=== PATIENT | female | born 1945 | race Caucasian/White ===

== ENCOUNTER → 2016-11-18 | Outpatient (CLI) | payer MEDICARE, OTHER ==
--- NOTE | 2016-11-18 09:52 | REP ---
DIAGNOSTIC MAMMOGRAM LEFT BREAST: Multiple views of the left breast are performed including magnification views of the left breast. Comparison made with multiple prior exams, the most recent of which is 04/26/2016. The clustered tiny pleomorphic calcifications in the upper outer quadrant of the left breast are again visualized and again cannot definitely be characterized as benign. Stereotactic biopsy is recommended. Other benign appearing calcifications are seen a little more laterally in the left breast. No new mass or other clusters of microcalcifications are seen. IMPRESSION: ACR 4 suspicious. Clustered microcalcifications again seen in the upper outer quadrant of the left breast for which sterotactic biopsy is recommended. This mammogram was interpreted with the aid of an FDA-approved computer-aided detection system. The patient states she/he had a clinical breast exam in 04/2016. The patient letter being requested is M4. Signed by Kartik Win MD 11/18/2016 05:22 P
== END ==
LOC: M RAD 08:46
PROVIDERS: ATTEND Surgery
DX: R92.0 Mammographic microcalcification found on diagnostic imaging of breast (principal)

== ENCOUNTER → 2017-02-24 | Outpatient (CLI) | payer MEDICARE, OTHER ==
[2017-02-24 12:18] LABS: MEAN CORPUSCULAR HEMOGLOBIN 30.7 pg (27.0-33.0); PLATELET COUNT, AUTOMATED 219 10^3/uL (150-450); RED CELL DISTRIBUTION WIDTH 12.3 % (11.5-14.5); WHITE BLOOD COUNT 5.3 10^3/uL (4.0-10.0)
[2017-02-24 14:19] LABS: ALBUMIN 3.7 GM/DL (3.2-5.2); ALBUMIN/GLOBULIN RATIO 0.95 (1.00-1.93); BILIRUBIN,TOTAL 0.6 MG/DL (0.2-1.0); CALCIUM LEVEL 9.3 MG/DL (8.8-10.2); CREATININE FOR GFR 1.46 MG/DL (0.55-1.02); GLOMERULAR FILTRATION RATE 37.4 (>39); TOTAL PROTEIN 7.6 GM/DL (6.4-8.2)
[2017-02-24 14:21] LABS: POTASSIUM SERUM 5.3 MEQ/L (3.5-5.1)
== END ==
LOC: M WUC 10:14
PROVIDERS: ATTEND Family Medicine
DX: D64.9 Anemia, unspecified (principal); R53.83 Other fatigue; E03.9 Hypothyroidism, unspecified; Z79.899 Other long term (current) drug therapy

== ENCOUNTER → 2017-07-29 | Outpatient (CLI) | payer MEDICARE, OTHER | LOC: M RAD 14:38 | DX: R93.7 Abnormal findings on diagnostic imaging of other parts of musculoskeletal system (principal); M19.011 Primary osteoarthritis, right shoulder | CPT/HCPCS: 73030 ==

== ENCOUNTER → 2018-08-07 | Outpatient (CLI) | payer MEDICARE, OTHER ==
--- NOTE | 2018-08-07 11:01 | REP ---
Chest two views HISTORY: Left rib fracture Comparison: 02/05/2016 There is elevation of the right hemidiaphragm. The lungs are clear. The heart is normal in size. The pulmonary vasculature is normal in appearance. Degenerative change is present in the thoracic spine. IMPRESSION: No acute disease. Electronically Signed by Dave Mills MD 08/07/2018 10:52 A
--- NOTE | 2018-08-07 11:06 | REP ---
LUMBAR SPINE, FIVE VIEWS: HISTORY: Degenerative disc disease. There is no acute fracture. The lumbar intervertebral discs are decreased in height consistent with disc degeneration. Osteophytes are present throughout the lumbar spine. There is narrowing of the L4-5 and L5-S1 facet joints with associated sclerosis. There is minimal scoliosis convex to the right. There are 3 mm of grade 1 spondylolisthesis of L4 on L5. IMPRESSION: Degenerative changes as described above. Electronically Signed by Dave Mills MD 08/07/2018 11:10 A
--- NOTE | 2018-08-07 11:15 | REP ---
UNILATERAL LEFT RIBS, FOUR VIEWS: HISTORY: Rib fracture. There is no fracture or bone lesion. The left lung is clear. IMPRESSION: No acute disease. Electronically Signed by Dave Mills MD 08/07/2018 11:19 A
[2018-08-07 11:16] LABS: HEMATOCRIT 34.7 % (36.0-47.0); HEMOGLOBIN 11.5 g/dl (12.0-15.5); MEAN CORPUSCULAR HEMOGLOBIN 30.4 pg (27.0-33.0); MEAN CORPUSCULAR HGB CONC 33.1 g/dl (32.0-36.5); MEAN CORPUSCULAR VOLUME 91.8 fl (80.0-96.0); PLATELET COUNT, AUTOMATED 224 10^3/uL (150-450); RED BLOOD COUNT 3.78 10^6/uL (4.00-5.40); WHITE BLOOD COUNT 6.7 10^3/uL (4.0-10.0)
--- NOTE | 2018-08-07 11:27 | REP ---
AP PELVIS, ONE VIEW: HISTORY: Degenerative joint disease. There is no acute fracture or dislocation. There is mild narrowing of the joint spaces with associated sclerosis. IMPRESSION: Degenerative change as described above. Electronically Signed by Dave Mills MD 08/07/2018 11:28 A
[2018-08-07 11:47] LABS: HEMOGLOBIN A1c 7.7 %
[2018-08-07 11:49] LABS: ALT/SGPT 24 U/L (12-78); BILIRUBIN,TOTAL 0.4 MG/DL (0.2-1.0); BLOOD UREA NITROGEN 38 MG/DL (7-18); CALCIUM LEVEL 9.4 MG/DL (8.8-10.2); CARBON DIOXIDE LEVEL 28 MEQ/L (21-32); CHLORIDE LEVEL 103 MEQ/L (98-107); CHOLESTEROL LEVEL 323 MG/DL (<200); CREATININE FOR GFR 1.66 MG/DL (0.55-1.30); GLOMERULAR FILTRATION RATE 32.1 (>39); GLUCOSE, FASTING 134 MG/DL (70-100); HDL CHOLESTEROL 42 MG/DL (>40); IRON (FE) 118 UG/DL (50-170); NON-HDL-C 281 MG/DL; PERCENT SATURATION 32.8 % (13.2-45.0); POTASSIUM SERUM 4.5 MEQ/L (3.5-5.1); SODIUM LEVEL 137 MEQ/L (136-145); TOTAL IRON BINDING CAPACITY 360 UG/DL (250-450); TOTAL PROTEIN 7.8 GM/DL (6.4-8.2); TRIGLYCERIDES LEVEL 532 MG/DL (<150)
== END ==
LOC: M LAB 10:01
PROVIDERS: ATTEND Family Medicine
DX: E03.9 Hypothyroidism, unspecified (principal); R53.83 Other fatigue; D64.9 Anemia, unspecified; M51.36 Other intervertebral disc degeneration, lumbar region; M25.78 Osteophyte, vertebrae; Z79.899 Other long term (current) drug therapy

== ENCOUNTER → 2019-02-13 | Outpatient (CLI) | payer MEDICARE, OTHER ==
[2019-02-13 09:51] LABS: HEMATOCRIT 33.6 % (36.0-47.0); MEAN CORPUSCULAR HEMOGLOBIN 30.5 pg (27.0-33.0); MEAN CORPUSCULAR HGB CONC 32.7 g/dl (32.0-36.5); MEAN CORPUSCULAR VOLUME 93.1 fl (80.0-96.0); PLATELET COUNT, AUTOMATED 221 10^3/uL (150-450); RED BLOOD COUNT 3.61 10^6/uL (4.00-5.40); WHITE BLOOD COUNT 6.8 10^3/uL (4.0-10.0)
[2019-02-13 10:27] LABS: ALT/SGPT 26 U/L (12-78); BILIRUBIN,TOTAL 0.6 MG/DL (0.2-1.0); BLOOD UREA NITROGEN 31 MG/DL (7-18); CALCIUM LEVEL 9.5 MG/DL (8.8-10.2); CARBON DIOXIDE LEVEL 28 MEQ/L (21-32); CHLORIDE LEVEL 105 MEQ/L (98-107); CHOLESTEROL LEVEL 239 MG/DL (<200); CHOLESTEROL RISK RATIO 4.596 (<5); CREATININE FOR GFR 1.61 MG/DL (0.55-1.30); GLOMERULAR FILTRATION RATE 33.2 (>39); GLUCOSE, FASTING 134 MG/DL (70-100); HDL CHOLESTEROL 52 MG/DL (>40); NON-HDL-C 187 MG/DL; POTASSIUM SERUM 4.6 MEQ/L (3.5-5.1); SODIUM LEVEL 140 MEQ/L (136-145); TOTAL PROTEIN 7.9 GM/DL (6.4-8.2); TRIGLYCERIDES LEVEL 450 MG/DL (<150)
[2019-02-13 10:28] LABS: TOTAL 25(OH) VITAMIN D 19.8 NG/ML (30.0-100.0)
[2019-02-13 11:11] LABS: HEMOGLOBIN A1c 7.9 %
== END ==
LOC: M LAB 09:13
PROVIDERS: ATTEND Family Medicine
DX: I10 Essential (primary) hypertension (principal); E11.9 Type 2 diabetes mellitus without complications; E03.9 Hypothyroidism, unspecified

== ENCOUNTER → 2020-02-29 | Outpatient (CLI) | payer MEDICARE, OTHER ==
--- NOTE | 2020-02-29 14:13 | REP ---
INDICATION: HTN COMPARISON: 08/07/2018 TECHNIQUE: PA and lateral. FINDINGS: The mediastinum and cardiac silhouette are normal. The lung regan are clear and without acute consolidation, effusion, or pneumothorax. The skeletal structures are intact and relatively normal. Old healed right rib fractures again noted. IMPRESSION: No acute cardiopulmonary process. <Electronically signed by Gonsalo Rodriguez > 02/29/20 [id number]
--- NOTE | 2020-02-29 14:14 | REP ---
INDICATION: PAIN COMPARISON: None. TECHNIQUE: AP and frog-lateral views of the left hip FINDINGS: Mild arthritic degenerative changes include joint space narrowing with marginal spurring along the acetabulum as well as cortical irregularity and emphysema petit along the greater trochanter and inferior pubic ramus. No acute fracture or dislocation. IMPRESSION: Mild arthritic degenerative changes. <Electronically signed by Gonsalo Rodriguez > 02/29/20 [id number]
[2020-02-29 15:56] LABS: HEMATOCRIT 34.2 % (36.0-47.0); MEAN CORPUSCULAR HEMOGLOBIN 30.3 pg (27.0-33.0); MEAN CORPUSCULAR HGB CONC 32.2 g/dl (32.0-36.5); MEAN CORPUSCULAR VOLUME 94.2 fl (80.0-96.0); PLATELET COUNT, AUTOMATED 213 10^3/uL (150-450); RED BLOOD COUNT 3.63 10^6/uL (4.00-5.40)
[2020-02-29 16:05] LABS: ALBUMIN 4.1 GM/DL (3.2-5.2); ALT/SGPT 24 U/L (12-78); BILIRUBIN,TOTAL 0.5 MG/DL (0.2-1.0); BLOOD UREA NITROGEN 32 MG/DL (7-18); CALCIUM LEVEL 9.1 MG/DL (8.8-10.2); CARBON DIOXIDE LEVEL 24 MEQ/L (21-32); CHLORIDE LEVEL 104 MEQ/L (98-107); CHOLESTEROL LEVEL 194 MG/DL (<200); CHOLESTEROL RISK RATIO 4.511 (<5); CREATININE FOR GFR 1.92 MG/DL (0.55-1.30); GLUCOSE, FASTING 174 MG/DL (70-100); HDL CHOLESTEROL 43 MG/DL (>40); NON-HDL-C 151 MG/DL; POTASSIUM SERUM 3.9 MEQ/L (3.5-5.1); SODIUM LEVEL 137 MEQ/L (136-145); TOTAL PROTEIN 7.7 GM/DL (6.4-8.2); TRIGLYCERIDES LEVEL 411 MG/DL (<150)
== END ==
LOC: M WUC 13:10
PROVIDERS: ATTEND Family Medicine
DX: E03.9 Hypothyroidism, unspecified (principal); M16.12 Unilateral primary osteoarthritis, left hip; I10 Essential (primary) hypertension; Z79.899 Other long term (current) drug therapy

== ENCOUNTER → 2020-07-07 | Outpatient (CLI) | payer MEDICARE, OTHER ==
--- NOTE | 2020-07-07 16:42 | REP ---
INDICATION: PAIN/SWELLING LT LEG, R/O DVT COMPARISON: None. TECHNIQUE: Win scale and color Doppler evaluation left lower extremity using linear high frequency transducer. FINDINGS: Ultrasound examination of the left lower extremity deep venous structures from the common femoral vein to the popliteal vein demonstrates normal compressibility flow and wave patterns in response to respiration and augmentation. There is no evidence for deep venous thrombosis. IMPRESSION: No evidence for deep venous thrombosis. <Electronically signed by Gonsalo Rodriguez > 07/07/20 [id number]
== END ==
LOC: M RAD 16:13
PROVIDERS: ATTEND Internal Medicine
DX: M79.662 Pain in left lower leg (principal); R60.9 Edema, unspecified

== ENCOUNTER → 2020-07-30 | Outpatient (CLI) | payer MEDICARE, OTHER ==
[2020-07-30 16:12] LABS: BASO % 0.5 % (0.0-1.0); EOS # 0.1 10^3/uL (0.0-0.5); HEMATOCRIT 34.2 % (36.0-47.0); HEMOGLOBIN 10.8 g/dl (12.0-15.5); LYMPH # 1.5 10^3/uL (1.5-5.0); LYMPH % 27.4 % (24.0-44.0); MEAN CORPUSCULAR HEMOGLOBIN 30.7 pg (27.0-33.0); MEAN CORPUSCULAR HGB CONC 31.6 g/dl (32.0-36.5); MEAN CORPUSCULAR VOLUME 97.2 fl (80.0-96.0); MONO # 0.4 10^3/uL (0.0-0.8); MONO % 7.5 % (2.0-8.0); NEUTROPHILS # 3.5 10^3/uL (1.5-8.5); NEUTROPHILS % 62.4 % (36.0-66.0); PLATELET COUNT, AUTOMATED 232 10^3/uL (150-450); RED BLOOD COUNT 3.52 10^6/uL (4.00-5.40); WHITE BLOOD COUNT 5.6 10^3/uL (4.0-10.0)
[2020-07-30 16:36] LABS: ERYTHROCYTE SEDIMENTATION RATE 48 mm/hr (0-30)
[2020-07-30 16:49] LABS: ALBUMIN 4.4 GM/DL (3.2-5.2); ALT/SGPT 23 U/L (12-78); BILIRUBIN,TOTAL 0.3 MG/DL (0.2-1.0); BLOOD UREA NITROGEN 36 MG/DL (7-18); CALCIUM LEVEL 9.8 MG/DL (8.8-10.2); CARBON DIOXIDE LEVEL 30 MEQ/L (21-32); CHLORIDE LEVEL 104 MEQ/L (98-107); CREATININE FOR GFR 1.58 MG/DL (0.55-1.30); GLOMERULAR FILTRATION RATE 33.8 (>39); GLUCOSE, FASTING 120 MG/DL (70-100); RHEUMATOID FACTOR QUANT < 10.0 IU/ML (<15.0); SODIUM LEVEL 140 MEQ/L (136-145); TOTAL PROTEIN 7.9 GM/DL (6.4-8.2)
[2020-07-30 16:51] LABS: VITAMIN B12 LEVEL 1684 PG/ML
[2020-07-30 16:52] LABS: FOLATE 14.2 NG/ML
[2020-07-31 10:53] LABS: ALBUMIN 4.53 GM/DL (3.29-5.55); ALBUMIN % 57.3 % (55.8-66.1); ALPHA-1-GLOBULIN % 4.1 % (2.9-4.9); ALPHA-1-GLOBULINS 0.32 GM/DL (0.17-0.41); ALPHA-2-GLOBULINS 1.01 GM/DL (0.42-0.99); ALPHA-2-GLOBULINS % 12.8 % (7.1-11.8); BETA-1-GLOBULINS 0.48 GM/DL (0.28-0.60); BETA-1-GLOBULINS % 6.1 % (4.7-7.2); BETA-2-GLOBULINS 0.43 GM/DL (0.19-0.55); BETA-2-GLOBULINS % 5.4 % (3.2-6.5); GAMMA GLOBULIN % 14.3 % (11.1-18.8); GAMMA GLOBULINS 1.13 GM/DL (0.65-1.58)
== END ==
LOC: M WUC 11:12
PROVIDERS: ATTEND Psychiatry & Neurology Neurology
DX: G62.9 Polyneuropathy, unspecified (principal); Z79.899 Other long term (current) drug therapy

== ENCOUNTER 2020-11-14 16:31 | Inpatient (IN) | payer MEDICARE, OTHER ==
[~2020-11-14] VITALS: Ht 152.4 cm; Wt 90.5 kg
[2020-11-14] MEDS ORDERED: METF10004 PO (16:47)
[2020-11-14] MEDS ORDERED: GLIP5TAB20 PO (16:47)
[2020-11-14] MEDS ORDERED: NEUR300C PO (16:47)
[2020-11-14] MEDS ORDERED: RAMI1CAP26 PO (16:47)
[2020-11-14] MEDS ORDERED: PRAV40TA2 PO (16:47)
[2020-11-14] MEDS ORDERED: TRIA37.5 PO (16:47)
--- NOTE | 2020-11-14 17:35 | REP ---
INDICATION: trauma Nontraumatic hip pain. COMPARISON: None. TECHNIQUE: Frontal view of the pelvis with neutral and frog lateral views of the right hip. FINDINGS: There is a comminuted displaced intertrochanteric fracture of the proximal right femur. IMPRESSION: Comminuted intertrochanteric fracture of the proximal femur. <Electronically signed by Gonsalo Rodriguez > 11/14/20 [id number]
--- NOTE | 2020-11-14 17:35 | REP ---
INDICATION: trauma COMPARISON: None. TECHNIQUE: AP and lateral right ankle. FINDINGS: Osteopenia and degenerative changes along with findings to suggest old injuries. No acute fracture or dislocation identified. IMPRESSION: No acute fracture or dislocation appreciated. <Electronically signed by Gonsalo Rodriguez > 11/14/20 [id number]
[2020-11-14] MEDS ORDERED: NS 1,000 ML IV SCH ×2 (17:45→20:15)
[2020-11-14] MEDS ORDERED: MORPHINE 4 MG/ML 1ML VIAL/SYRINGE (J2270) IV PRN ×2 (17:55→19:15)
[2020-11-14] MEDS ORDERED: ONDANSETRON 4MG/2ML VIAL IV ONE (17:55)
[2020-11-14 18:08] LABS: BASO % 0.3 % (0.0-1.0); EOS # 0.1 10^3/uL (0.0-0.5); EOS % 1.4 % (0.0-3.0); HEMATOCRIT 28.3 % (36.0-47.0); HEMOGLOBIN 9.1 g/dl (12.0-15.5); LYMPH # 1.5 10^3/uL (1.5-5.0); LYMPH % 17.9 % (24.0-44.0); MEAN CORPUSCULAR HEMOGLOBIN 30.5 pg (27.0-33.0); MEAN CORPUSCULAR HGB CONC 32.2 g/dl (32.0-36.5); MONO # 0.9 10^3/uL (0.0-0.8); MONO % 10.3 % (2.0-8.0); NEUTROPHILS % 69.8 % (36.0-66.0); PLATELET COUNT, AUTOMATED 215 10^3/uL (150-450); RED BLOOD COUNT 2.98 10^6/uL (4.00-5.40); WHITE BLOOD COUNT 8.6 10^3/uL (4.0-10.0)
[2020-11-14 18:28] LABS: ALBUMIN 3.5 GM/DL (3.2-5.2); ALT/SGPT 33 U/L (12-78); BILIRUBIN,DIRECT 0.2 MG/DL (0.0-0.2); BILIRUBIN,TOTAL 0.7 MG/DL (0.2-1.0); INR 1.06; LIPASE 204 U/L (73-393); TOTAL PROTEIN 7.2 GM/DL (6.4-8.2)
[2020-11-14] MEDS ORDERED: ONDANSETRON 4MG/2ML VIAL IV PRN (18:35)
[2020-11-14] MEDS ORDERED: GLUCAGON INJ 1MG VIAL SC PRN (18:35)
[2020-11-14] MEDS ORDERED: MOM 30ML SUSPENSION UDC PO PRN (18:35)
[2020-11-14] MEDS ORDERED: GLUCOSE 4GM CHEW TABLET PO PRN (18:35)
[2020-11-14] MEDS ORDERED: DEXTROSE 50% 50 ML SYRINGE IV PRN (18:35)
[2020-11-14] MEDS ORDERED: KETOROLAC 30 MG/ML 1ML VIAL IV PRN (18:35)
[2020-11-14] MEDS ORDERED: MAALOX 30 ML SUSP *UDC PO PRN (18:35)
[2020-11-14] MEDS ORDERED: RAMI1CAP24 PO (18:36)
[2020-11-14] MEDS ORDERED: ERGO500029 PO (18:37)
[2020-11-14] MEDS ORDERED: ACET-683 PO (18:37)
--- NOTE | 2020-11-14 18:38 | HPEPDOC ---
[facility] Medical History & Physical Date of Admission Nov 14, 2020 Date of Service: Nov 14, 2020 Attending Physician: GENEVIEVE STRICKLAND MD History and Physical CHIEF COMPLAINT: [75 y/o female presents to the ED after 2 falls] HISTORY OF PRESENT ILLNESS: [This is a 75 y/o female with a pmh of htn and dm2 who presents to the ED after suffering two recent falls, three days ago and one day ago, respectively. Patient states that her first fall occurred while she was trying to do laundry and she was reaching over the machine for something and simply lost her balance and fell onto her right side. Patient states that she did not strike her head. Patient states that she was not able to get up and had to call ems to help her into a chair but refused to go to the hospital. Patient states that she was able to ambulate somewhat after this fall but with pain in her right hip. Patient states that yesterday, she was attempting to switch out one walker for another when she lost her balance yet again and fell onto her right side yet again. Patient again had to call ems but this time decided to report to the hospital for evaluation. At the time of my exam, patient is complaining of right hip pain with movement only. She is denying headaches, vision changes, weakness, paresthesias, paralysis, back pain, chest pain, abd pain, fevers, chills, dizziness, lightheadedness. Patient found to have proximal comminuted fracture of right femur on imaging. Patient also found to have a cr of 2.2, which appears to be elevated from her baseline of around 1.5 ] PAST MEDICAL HISTORY: 1. [See HPI PAST SURGICAL HISTORY: 1. [C section]. SOCIAL HISTORY: Tobacco use:[Denies] ETOH: [Denies] Illicit drug use: [Denies] FAMILY HISTORY: Sister - COPD ALLERGIES: Please see below. REVIEW OF SYSTEMS: CONSTITUTIONAL: [See HPI]. HEENT: [Denies uri sx]. CARDIOVASCULAR: [See HPI]. RESPIRATORY: [Denies sob, wheezing]. GASTROINTESTINAL: [Denies n/v/d/c]. GENITOURINARY: [Denies dysuria]. SKIN: [Denies rash]. MUSCULOSKELETAL: [See HPI]. NEUROLOGICAL: [See HPI]. ENDOCRINE: [Hx of DM]. HEMATOLOGIC/LYMPHATIC: [Denies easy bruising]. HOME MEDICATIONS: Please see below. PHYSICAL EXAMINATION: VITAL SIGNS: Please see below. GENERAL APPEARANCE: [This is an overweight 75 y/o female who appears anxious. She does not appear to be in any acute respiratory distress.]. HEENT: [No mass or lesion. EOMI. No scleral icterus. Nares patent. Oral mucosa moist]. CARDIOVASCULAR: [Regular rate, rhythm. No murmurs, rubs, gallops]. LUNGS: [Good air flow b/l. No wheezing, rales, rhonchi]. ABDOMEN: [Soft, nontender]. MUSCULOSKELETAL: [No joint deformity. R hip rom is not assessed. Patient able to freely move right ankle and foot.]. EXTREMITIES: [The lower right extremity has mild edema without erythema, pallor or signficiant ecchymosis. The lower left extremity has hyperpigmentation and is cool to the touch consistant with chronic venous insufficiency. Pulses intact.]. NEUROLOGICAL: [Sensation intact. Speech clear. A+Ox3. No focal deficits.]. PSYCHIATRIC: [Mood and affect appear appropriate.]. LABORATORY DATA: See below. IMAGING: [Hip/pelvis xr: FINDINGS: There is a comminuted displaced intertrochanteric fracture of the proximal right femur. IMPRESSION: Comminuted intertrochanteric fracture of the proximal femur. Ankle xr: FINDINGS: Osteopenia and degenerative changes along with findings to suggest old injuries. No acute fracture or dislocation identified. IMPRESSION: No acute fracture or dislocation appreciated. CXR: FINDINGS: The mediastinum and cardiac silhouette are stable and within normal limits for portable technique. The lung regan are clear without acute consolidation, effusion, or pneumothorax. Skeletal structures are intact. IMPRESSION: No acute cardiopulmonary process appreciated. Femur xr: FINDINGS: Osteopenia and degenerative changes noted. No fracture to the visualized osseous structures. IMPRESSION: . No acute fracture or dislocation of the visualized osseous structures. CT Extremity: FINDINGS: Bones/joints: Intertrochanteric fracture of the right hip with separation of the lesser trochanter as a fragment. There is slight varus angulation through the site of fracture and slight offset. The adjacent pelvis is intact. Soft tissues: Slight hemorrhagic infiltration is noted about the site of fracture. IMPRESSION: 1. Intertrochanteric fracture of the right hip with slight varus angulation and slight offset through the site of fracture and separation of the lesser trochanter. 2. Slight hemorrhagic infiltration is noted about the site of fracture. Renal US: FINDINGS: Bilateral kidneys are normal in contour, size, echogenicity, and reniform shape. No hydronephrosis, nephrolithiasis, cystic or renal mass lesion. Bladder is unremarkable. Right kidney measures 10.2 x 3.7 x 4.1 cm. Left kidney measures 9.1 x 3.7 x 4.1 cm. Incidental hepatosteatosis and cholelithiasis noted.] MICROBIOLOGY: Please see below. ASSESSMENT: [This is a 75 y/o female with a pmh of htn and dm2 who presents to the ED after suffering two recent falls, three days ago and one day ago, respectively. Patient found to have proximal comminuted fracture of right femur on imaging. Falls seem to be mechanical in nature. Patient also found to have a cr of 2.2, which appears to be elevated from her baseline of around 1.5]. . PLAN: 1. [Right hip fx - Dr. Kellogg, orthopedics, has been consulted from the emergency department, is recommending or tomorrow. Assistance is appreciated. - Pain control with morphine overnight - zofran for nausea - npo after midnight - admit to med surg for procedure 2. MUNIRA - likely acute on chronic renal failure 2/2 poor oral intake d/t recent poor mobility - i do not see formal diagnosis of ckd in patients chart, however with a baseline cr of 1.5, this places her at ckd3 - will give fluid bolus followed by ivf - renal us normal - urine electrolytes ordered - holding patients triamterene-hctz - will monitor kidney function 3. Anemia - Likely anemia of chronic disease - iron studies, folate, b12 ordered - current hb is 9 4. DM - sliding scale coverage - hypoglycemic protocol - continue gabapentin 5. HTN - continue ramipril - holding patients triamterene-hctz as stated 6. HLD - continue pravastatin DVT prophylaxis - mechanical]. Vital Signs Vital Signs Date Time Temp Pulse Resp B/P (MAP) Pulse Ox O2 Delivery O2 Flow Rate FiO2 11/14/20 18:26 16 11/14/20 16:42 97.9 80 106/52 (70) 95 Room Air Laboratory Data Labs 24H Laboratory Tests 2 11/14/20 17:50: Immature Granulocyte % (Auto) 0.3, Neutrophils (%) (Auto) 69.8H, Lymphocytes (%) (Auto) 17.9L, Monocytes (%) (Auto) 10.3H, Eosinophils (%) (Auto) 1.4, Basophils (%) (Auto) 0.3, Neutrophils # (Auto) 6.0, Lymphocytes # (Auto) 1.5, Monocytes # (Auto) 0.9H, Eosinophils # (Auto) 0.1, Basophils # (Auto) 0.0, Nucleated Red Blood Cells % (auto) 0.0, Prothrombin Time 14.0, Prothromb Time International Ratio 1.06, Total Bilirubin 0.7, Direct Bilirubin 0.2, Aspartate Amino Transf (AST/SGOT) 47H, Alanine Aminotransferase (ALT/SGPT) 33, Alkaline Phosphatase 55, Total Protein 7.2, Albumin 3.5, Albumin/Globulin Ratio 0.9L, Lipase 204 CBC/BMP Laboratory Tests 11/14/20 17:50 Home Medications Scheduled Ergocalciferol (Vitamin D2) (Vitamin D2) 50,000 Units Cap, 50,000 UNITS PO QWEEK MONDAY Gabapentin (Neurontin) 300 Mg Capsule, 300 MG PO TID Glipizide (Glipizide ER) 5 Mg Tab.er.24, 5 MG PO DAILY Metformin HCl (Metformin HCl) 1,000 Mg Tablet, 1,000 MG PO BID Pravastatin Sodium (Pravastatin Sodium) 40 Mg Tablet, 40 MG PO DAILY Ramipril (Ramipril) 5 Mg Capsule, 5 MG PO DAILY Triamterene/Hydrochlorothiazid (Triamterene-Hctz 37.5-25 mg Tb) 1 Each Tablet, 1 TAB PO DAILY Scheduled PRN Acetaminophen (Acetaminophen) 500 Mg Tablet, 1,000 MG PO BID PRN for PAIN Allergies Coded Allergies: No Known Allergies (Unverified , 11/14/20) A-FIB/CHADSVASC A-FIB History Current/History of A-Fib/PAF?: No Attending Note Attending Note Ms. Hearn is a 75 yr old F admitted for management of a right hip fx after a fall, MUNIRA and anemia. Her revised Cardiac risk index score is 1; prior to proceeding with surgery we will check a pro-BNP -if the pro-BNP is greater than 300 she will need to be put on telemetry and have her troponin checked daily for 48 to 72 hours. She already has an EKG which I reviewed that shows NSR w a rate of 79. Other than than this she will not need additional testing prior to proceeding with surgery. -if the pro-BNP is less than 300 she can proceed with surgery without telemetry and without serial troponins. rest per [facility] Nov 14, 2020 18:38 GENEVIEVE STRICKLAND MD Nov 15, 2020 03:22
[2020-11-14 18:45] LABS: BLOOD UREA NITROGEN 62 MG/DL (7-18); CALCIUM LEVEL 8.9 MG/DL (8.8-10.2); CARBON DIOXIDE LEVEL 25 MEQ/L (21-32); CHLORIDE LEVEL 103 MEQ/L (98-107); CREATININE FOR GFR 2.02 MG/DL (0.55-1.30); GLOMERULAR FILTRATION RATE 25.4 (>39); GLUCOSE, FASTING 112 MG/DL (70-100); POTASSIUM SERUM 4.3 MEQ/L (3.5-5.1); SODIUM LEVEL 139 MEQ/L (136-145)
[2020-11-14] MEDS ORDERED: NS 1,000 ML IV ONE (19:20)
[2020-11-14 19:22] LABS: FERRITIN 332 NG/ML (8-252); IRON (FE) 37 UG/DL (50-170); PERCENT SATURATION 11.9 % (13.2-45.0); TOTAL IRON BINDING CAPACITY 310 UG/DL (250-450)
[2020-11-14 19:31] LABS: RSV AMPLIFICATION NEGATIVE (NEGATIVE)
--- NOTE | 2020-11-14 19:48 | REP ---
INDICATION: preop COMPARISON: 02/29/2020 TECHNIQUE: Portable AP view of the chest FINDINGS: The mediastinum and cardiac silhouette are stable and within normal limits for portable technique. The lung regan are clear without acute consolidation, effusion, or pneumothorax. Skeletal structures are intact. IMPRESSION: No acute cardiopulmonary process appreciated. <Electronically signed by Gonsalo Rodriguez > 11/14/201944
--- NOTE | 2020-11-14 19:49 | REP ---
INDICATION: preop COMPARISON: None. TECHNIQUE: AP and oblique/lateral view of the mid to distal femur FINDINGS: Osteopenia and degenerative changes noted. No fracture to the visualized osseous structures. IMPRESSION: . No acute fracture or dislocation of the visualized osseous structures. <Electronically signed by Gonsalo Rodriguez > 11/14/201945
--- NOTE | 2020-11-14 19:51 | REP ---
INDICATION: alfredo COMPARISON: None TECHNIQUE: Real time farfan scale ultrasound examination using curved array transducer. FINDINGS: Bilateral kidneys are normal in contour, size, echogenicity, and reniform shape. No hydronephrosis, nephrolithiasis, cystic or renal mass lesion. Bladder is unremarkable. Right kidney measures 10.2 x 3.7 x 4.1 cm. Left kidney measures 9.1 x 3.7 x 4.1 cm. Incidental hepatosteatosis and cholelithiasis noted. IMPRESSION: Normal bilateral kidneys. As above. <Electronically signed by Gonsalo Rodriguez > 11/14/201946
--- NOTE | 2020-11-14 20:14 | REPVR ---
PROCEDURE INFORMATION: Exam: CT Right Lower Extremity Without Contrast, Hip Exam date and time: 11/14/2020 7:09 PM Age: 75 years old Clinical indication: Injury or trauma; Fall; Blunt trauma; Hip; Right TECHNIQUE: Imaging protocol: CT of the Right lower extremity without contrast was performed. Exam focused on the hip. Radiation optimization: All CT scans at this facility use at least one of these dose optimization techniques: automated exposure control; mA and/or kV adjustment per patient size (includes targeted exams where dose is matched to clinical indication); or iterative reconstruction. COMPARISON: CR Hip,AP,LAT to include Pelvis 11/14/2020 5:03 PM FINDINGS: Bones/joints: Intertrochanteric fracture of the right hip with separation of the lesser trochanter as a fragment. There is slight varus angulation through the site of fracture and slight offset. The adjacent pelvis is intact. Soft tissues: Slight hemorrhagic infiltration is noted about the site of fracture. IMPRESSION: 1. Intertrochanteric fracture of the right hip with slight varus angulation and slight offset through the site of fracture and separation of the lesser trochanter. 2. Slight hemorrhagic infiltration is noted about the site of fracture. Electronically signed by: Ayden Cabrales On 11/14/2020 20:13:56 PM
[2020-11-14] MEDS ORDERED: HumaLOG INSULIN (NovoLOG) PER UNIT SC SCH (21:00)
[2020-11-14 21:15] VITALS: BP 130/62
[2020-11-14] MEDS: GABAPENTIN 300 MG CAP PO SCH (22:50)
[2020-11-15] VITALS (8 sets, daily range): BP systolic 113–136; BP diastolic 58–93
[2020-11-15] MEDS ORDERED: NS 1,000 ML IV SCH
[2020-11-15] MEDS: D5W/0.9% SODIUM CHLORIDE 1,000 ML IV SCH ×2 (03:25→18:02)
[2020-11-15] MEDS: HumaLOG INSULIN (NovoLOG) PER UNIT SC SCH ×3 (06:00→18:00)
[2020-11-15] MEDS: MORPHINE 2 MG/ML 1ML VIAL (J2270) IV PRN (06:55)
[2020-11-15 07:11] LABS: HEMATOCRIT 25.5 % (36.0-47.0); MEAN CORPUSCULAR HEMOGLOBIN 30.3 pg (27.0-33.0); MEAN CORPUSCULAR HGB CONC 31.4 g/dl (32.0-36.5); MEAN CORPUSCULAR VOLUME 96.6 fl (80.0-96.0); PLATELET COUNT, AUTOMATED 196 10^3/uL (150-450); RED BLOOD COUNT 2.64 10^6/uL (4.00-5.40); WHITE BLOOD COUNT 5.5 10^3/uL (4.0-10.0)
[2020-11-15 07:21] LABS: CPK CREATINE PHOSPHOKINASE 1081 U/L (26-192); NT-PRO BNP 172 PG/ML (<450)
[2020-11-15] MEDS ORDERED: HumaLOG INSULIN (NovoLOG) PER UNIT SC SCH (07:30)
[2020-11-15 07:31] LABS: CALCIUM LEVEL 8.3 MG/DL (8.8-10.2); CREATININE FOR GFR 1.69 MG/DL (0.55-1.30); GLOMERULAR FILTRATION RATE 31.2 (>39); POTASSIUM SERUM 4.4 MEQ/L (3.5-5.1)
--- NOTE | 2020-11-15 07:47 | ECGEPIP ---
[facility] - ED Test Date: 2020-11-14 Pat Name: AALIYAH ELLSWORTH Department: Room: [place] [address] Gender: Female Livestock Producer: ROD : 1945 Requested By: Teresita Bauman Order Number: [id number] Reading MD: Teresita Bauman Measurements Intervals Hodgen Rate: 79 P: 32 MS: 172 QRS: -38 QRSD: 94 T: 78 QT: 388 QTc: 444 Interpretive Statements Normal sinus rhythm Left axis deviation prwp No prior Electronically Signed on 11-15-2020 7:47:31 EDT by Teresita Bauman
[2020-11-15] MEDS: GABAPENTIN 300 MG CAP PO SCH ×3 (08:44→21:10)
[2020-11-15] MEDS: ramipriL 5 MG CAP PO SCH (08:44)
[2020-11-15] MEDS: PRAVASTATIN 20 MG TAB PO SCH (08:45)
[2020-11-15] MEDS ORDERED: SEVOFLURANE INHAL SOLN 250 ML BTL As Ordered ONE (08:49)
[2020-11-15] MEDS ORDERED: LIDOCAINE 2% 100MG/5ML SDV (FOR ANES.) As Ordered ONE (11:08)
[2020-11-15] MEDS ORDERED: propofoL 200 MG/20 ML VIAL As Ordered ONE (11:08)
[2020-11-15] MEDS ORDERED: fentaNYL 100 MCG/2 ML INJECTION (J3010) As Ordered ONE ×2 (11:09→13:39)
[2020-11-15] MEDS ORDERED: dexameTHASONE 4 MG/ML 1ML VIAL (J1100 PER 1MG) As Ordered ONE (11:09)
[2020-11-15] MEDS ORDERED: ONDANSETRON 4MG/2ML VIAL As Ordered ONE (11:09)
--- NOTE | 2020-11-15 11:10 | CR ---
CONSULTATION DATE: 11/15/2020 REASON FOR CONSULTATION: Right hip fracture. CHIEF COMPLAINT: Right hip pain. HISTORY OF PRESENT ILLNESS: The patient is a 75-year-old female with a past medical history of hypertension, diabetes type who presents to the emergency department after sustaining two recent falls. One was four days ago and one was two days ago. She fell onto her right side and initially was unable to ambulate after that because of right hip pain but did not want to come to the hospital. She then was trying to transfer from one walker to another and then fell again and finally presented to the emergency department. She was found to have a comminuted right intertrochanteric femur fracture. Orthopedics was consulted for evaluation and management. Otherwise, no other areas of complaint with reference to pain. PAST MEDICAL HISTORY: As above in the HPI. PAST SURGICAL HISTORY: . SOCIAL HISTORY: Tobacco, she denies, alcohol denies, drug use denies. FAMILY HISTORY: Sister has COPD. ALLERGIES: No known drug allergies. MEDICATIONS: See med rec reconciliation. REVIEW OF SYSTEMS: A 10 point review of systems was completed and all were negative except for what is in the HPI. PHYSICAL EXAMINATION: GENERAL: Well-developed, well-nourished, obese, in no acute distress. NEURO: Alert and oriented x4. PSYCH: Normal mood and affect. CARDIAC: Regular rate and rhythm. RESPIRATORY: Nonlabored breathing. Equal chest rise and fall. ABDOMEN: Nontender. SKIN: Intact, no ecchymosis, swelling or breaks in the skin. MUSCULOSKELETAL: Focused exam of right hip and lower extremity demonstrates pain to palpation over the right hip. Range of motion is limited secondary to pain. She has no tenderness in the thigh, knee, leg, foot or ankle. She has pain with attempted passive motion of the hip but this was done minimally. Sensation intact to light touch in the sural, saphenous, DP and SP and tibial nerves. Motor intact in the EHL, FHL, gastroc-soleus complex, tibialis anterior. She has warm and well-perfused digits. IMAGING: Review of the radiographs and CT scan of the right hip demonstrate a right intertochanteric femur fracture. ASSESSMENT: This is a 75-year-old female with a right intertrochanteric femur fracture. I had a long discussion with the patient about the nature of the condition and treatment options. I recommend surgical stabilization with supplementary nail fixation to give her the best chance to prevent any morbidity or mortality. The patient is agreeable to this and we went over the risks of surgery as well and she signed the consent herself. The patient will go the OR today as long as she is medically cleared to go to the operating room.
[2020-11-15] MEDS ORDERED: ROCURONIUM BROMIDE 50 MG/5 ML VIAL As Ordered ONE (12:58)
[2020-11-15] MEDS ORDERED: LIDOCAINE 1% MDV 20ML VIAL As Ordered ONE (13:08)
[2020-11-15] MEDS ORDERED: TRANEXAMIC ACID 100 MG/ML 10ML VIAL As Ordered ONE (13:08)
[2020-11-15] MEDS ORDERED: ceFAZolin 2 GM/D5W 50 ML IV BAG (J0690 PER 500MG) As Ordered ONE (13:08)
[2020-11-15] MEDS ORDERED: BUPIVACAINE HCL 0.5% 10ML VIAL As Ordered ONE (13:09)
[2020-11-15] MEDS ORDERED: ACETAMINOPHEN 1000MG 100ML IV BTL (OFIRMEV) (J0131 PER 10MG) As Ordered ONE (14:21)
[2020-11-15] MEDS ORDERED: SUGAMMADEX SODIUM 500 MG/5 ML VIAL (BRIDION) As Ordered ONE (14:55)
--- NOTE | 2020-11-15 15:17 | REP ---
INDICATION: RIGHT HIP FRACTURE. COMPARISON: None. TECHNIQUE: Intraoperative fluoroscopic imaging using portable C-arm technique. FINDINGS: Satisfactory open reduction and fixation for femoral neck fracture. Total fluoroscopic time 2 minutes 51 seconds. IMPRESSION: Status post open reduction and fixation for femoral neck fracture. <Electronically signed by Gonsalo Rodriguez > 11/15/20 [id number]
[2020-11-15] MEDS ORDERED: METOCLOPRAMIDE INJ 10MG/2ML VIAL (J2765 PER 1) As Ordered ONE (16:06)
[2020-11-15] MEDS ORDERED: LR 1,000 ML IV SCH (16:20)
[2020-11-15] MEDS ORDERED: ONDANSETRON 4MG/2ML VIAL IV PRN (16:20)
[2020-11-15] MEDS ORDERED: HYDROMORPHONE HCL 0.5 MG/ 0.5 ML SYRINGE (J1170 PER 1) IV PRN (16:20)
[2020-11-15] MEDS ORDERED: oxyCODONE 5MG TAB PO PRN (16:20)
[2020-11-15] MEDS ORDERED: fentaNYL 100 MCG/2 ML INJECTION (J3010) IV PRN (16:20)
[2020-11-15] MEDS ORDERED: diphenhydrAMINE 50MG/ML VIAL (J1200) As Ordered ONE (16:25)
[2020-11-15] MEDS ORDERED: METOCLOPRAMIDE INJ 10MG/2ML VIAL (J2765 PER 1) IV PRN (16:35)
[2020-11-15] MEDS ORDERED: diphenhydrAMINE 50MG/ML VIAL (J1200) IV PRN (17:05)
--- NOTE | 2020-11-15 17:32 | RO ---
OPERATIVE NOTE DATE OF OPERATION: 11/15/2020 PREOPERATIVE DIAGNOSIS: Right hip intertrochanteric femur fracture. POSTOPERATIVE DIAGNOSIS: Right hip intertrochanteric femur fracture. OPERATION PERFORMED: Right hip closed reduction and cephalomedullary nail fixation. SURGEON: Charbel Kellogg MD STEAMBOAT PILOT: ANESTHESIA: INDICATION FOR OPERATION: The patient is a 75-year-old female who sustained a ground-level fall a couple of days ago and presented to the emergency department yesterday for right hip pain. She was diagnosed with a right intertrochanteric femur fracture and orthopedics was consulted for evaluation. I recommended based on her fracture pattern closed reduction and cephalomedullary nail fixation. The patient demonstrated understanding of the risks of surgery to included but not limited to bleeding, infection, damage to local structures, pain, stiffness, need for further surgery, and she was able to sign the informed consent. All questions were answered to her full satisfaction. MATERIAL FORWARDED: None. DESCRIPTION OF FINDINGS: The patient had stable reduction and fixation after implants were placed. Compression of the fracture fragments was used with the [employer] TFNA system. INFECTION CLASSIFICATION: 1, clean. ESTIMATED BLOOD LOSS: 100 mL DESCRIPTION OF THE OPERATION: The patient was met in the preoperative holding area where the correct name, identity, operative site, laterality and procedure were verified to be correct without discrepancies. The operative site was marked by myself. The patient was then taken to the operating room by nursing and anesthesia providers and remained on the gurney. She then underwent general anesthetic and placed under general anesthetic without complication. She was then transferred to the fracture table where the right lower extremity was placed into the boot for traction. The left lower extremity was then suspended along the bottom rail of the fracture table and was well padded and well secured. Next, x-ray was brought in to evaluate whether we could get adequate images and we were able to this without problem. Next, the patient's right leg was then prepped and draped in the usual sterile fashion. A timeout was then called and the patient's name, identity, operative site, laterality and procedure were verified without discrepancies. We also confirmed antibiotics and TXA administration. The antibiotic was weight based Ancef. Next, the bony landmarks of the proximal femur were identified under fluoroscopy. Please note that during the x-rays we got before prepping and draping, a closed reduction was performed with the use of traction and the fracture table. Adequate reduction was achieved under AP and lateral views. Next, going back to marking the bony landmarks, after these were done an incision was carried out several cm proximal to the greater trochanter and a guidewire was placed onto the tip of the greater trochanteric as well. This was advanced into the proximal femur and this was confirmed under fluoroscopy. Then opening reamer was then used to open this area. We had to ream the canal to 12.5 mm prior to placing the nail. The nail was then placed and sunk down to the appropriate level. The jig was set up and the helical blade was then prepped with the jig in place. Initially, a guidewire was advanced through the nail up to the femoral head. Once adequate position was achieved, this was measured and based on this measurement, I decided to go with a 90 mm helical blade. This was then overdrilled with the drill set to 90 mm. Helical blade was then placed and it was sunk down. Once it was sunk down all the way, it caused a little bit of distraction of the fracture fragments. I then used the compression feature of the TFNA system to compress the fracture fragments slightly. Please note that during this malleolus x-rays and AP and lateral were being taken to assure that we had appropriate positioning of the implants and maintenance of reduction. After compression was done, the set screw was placed and held the set as it could. The interlocking screw was then placed distally utilizing a jig. Once this was placed, the whole jig was removed and final x-rays were taken, confirming we had perfect positioning of our implants. The wounds were then copiously irrigated with normal saline and closed in layers. Sterile dressings were applied and the patient was then aroused from anesthesia, having tolerated the procedure well without any complication. Postoperatively, the patient will stay in the hospital under management of the primary team and she can begin protective weightbearing. She can weight bear as tolerated with physical therapy using a walker. She will get 24 hours of postop antibiotics and DVT chemoprophylaxis per the primary team. The patient did receive preop antibiotics, she will get postop antibiotics and she will get postop DVT chemoprophylaxis. We will have her follow up in our clinic in about two weeks or so for wound check and staple removal.
[2020-11-15] MEDS: ceFAZolin SOD 2 GM in IV 1 EA IV SCH (21:10)
[2020-11-16 02:15] VITALS: BP 115/72
[2020-11-16] MEDS: D5W/0.9% SODIUM CHLORIDE 1,000 ML IV SCH (05:06)
[2020-11-16] MEDS: MORPHINE 2 MG/ML 1ML VIAL (J2270) IV PRN (05:06)
[2020-11-16] MEDS: ceFAZolin SOD 2 GM in IV 1 EA IV SCH ×2 (05:06→12:17)
[2020-11-16] MEDS: HumaLOG INSULIN (NovoLOG) PER UNIT SC SCH ×6 (05:18→21:00)
[2020-11-16] MEDS: GABAPENTIN 300 MG CAP PO SCH ×3 (08:04→21:10)
[2020-11-16] MEDS: ramipriL 5 MG CAP PO SCH (08:04)
[2020-11-16] MEDS: PRAVASTATIN 20 MG TAB PO SCH (08:05)
[2020-11-16 08:10] LABS: HEMATOCRIT 23.6 % (36.0-47.0); HEMOGLOBIN 7.5 g/dl (12.0-15.5); MEAN CORPUSCULAR HEMOGLOBIN 30.2 pg (27.0-33.0); MEAN CORPUSCULAR HGB CONC 31.8 g/dl (32.0-36.5); MEAN CORPUSCULAR VOLUME 95.2 fl (80.0-96.0); PLATELET COUNT, AUTOMATED 190 10^3/uL (150-450); RED BLOOD COUNT 2.48 10^6/uL (4.00-5.40); WHITE BLOOD COUNT 8.2 10^3/uL (4.0-10.0)
[2020-11-16 08:34] LABS: CALCIUM LEVEL 8.2 MG/DL (8.8-10.2); CREATININE FOR GFR 1.89 MG/DL (0.55-1.30); GLOMERULAR FILTRATION RATE 27.5 (>39); POTASSIUM SERUM 4.4 MEQ/L (3.5-5.1)
[2020-11-16 10:00] VITALS: BP 123/52
[2020-11-16 11:13] LABS: FOLATE 12.2 NG/ML (>5.4); VITAMIN B12 LEVEL > 2000 PG/ML (247-911)
--- NOTE | 2020-11-16 13:53 | IPNPDOC ---
Text Note Date of Service The patient was seen on 11/15/20. NOTE Subjective: Patient seen and examined at bedside. Objective: General: NAD, lying comfortably in bed HEENT: NC/AT Lungs: CTA B/L Heart: +S1S2, RRR Abd: soft, NT, +BS, obese Ext: trace edema Neuro: no gross focal deficits Psych: AAOx3 A/P: 75 y/o female with PMHx including HTN, DM2, present for falls - 3days ago and one day prior. Patient found to have proximal comminuted fracture of right femur on imaging. Patient also noted to be in MUNIRA. #Right hip fx - follow as per ortho - pain control #MUNIRA - possibly seocndary to dehydration given poor PO intake - renal us normal - holding patients triamterene-hctz - will monitor kidney function #Anemia - Likely anemia of chronic disease - iron studies, folate, b12 ordered #DM - sliding scale coverage - hypoglycemic protocol - continue gabapentin for peripheral neuropathy #HTN - ramipril continued on admission - holding patients triamterene-hctz as stated #HLD - continue pravastatin #DVT prophylaxis - mechanical]. VS,Fishbone, I+O VS, Fishbone, I+O Laboratory Tests 11/16/20 07:52 Vital Signs Date Time Temp Pulse Resp B/P (MAP) Pulse Ox O2 Delivery O2 Flow Rate FiO2 11/16/20 10:00 97.3 78 16 123/52 (75) 92 Room Air 11/16/20 07:30 1.0 I&O- Last 24 Hours up to 6 AM 11/16/20 05:59 Intake Total 460 ml Output Total 100 ml Balance 360 ml TOÑO BERNSTEIN MD Nov 16, 2020 13:53
[2020-11-16 14:00] VITALS: BP 120/54
--- NOTE | 2020-11-16 14:00 | IPNPDOC ---
Text Note Date of Service The patient was seen on 11/16/20. NOTE Subjective: Patient seen and examined at bedside. Objective: General: NAD, lying comfortably in bed HEENT: NC/AT Lungs: CTA B/L Heart: +S1S2, RRR Abd: soft, NT, +BS, obese Ext: trace edema Neuro: no gross focal deficits Psych: AAOx3 A/P: 75 y/o female with PMHx including HTN, DM2, present for falls, with proximal comminuted fracture of right femur on imaging. Patient also noted to be in MUNIRA on admission #Right hip fx - POD #1 for right hip closed reduction/cephalomedullary nail fixation - follow as per ortho - pain control #MUNIRA - possibly seocndary to dehydration given poor PO intake - renal us normal - holding patients triamterene-hctz, will also hold ACEI - will monitor kidney function - UA/UCx pending #Anemia - slight decrease - will recheck in evening and tomorrow am - asymptomatic - iron studies note iron deficiency #DM - sliding scale coverage - hypoglycemic protocol - continue gabapentin for peripheral neuropathy, restart ACEI if possible on discharge #HTN - stable - as above, holding ramipril, triamterene-hctz - restart ACEI if possible on discharge #HLD - continue pravastatin #DVT prophylaxis - mechanical]. VS,Fishbone, I+O VS, Fishbone, I+O Laboratory Tests 11/16/20 07:52 Vital Signs Date Time Temp Pulse Resp B/P (MAP) Pulse Ox O2 Delivery O2 Flow Rate FiO2 11/16/20 10:00 97.3 78 16 123/52 (75) 92 Room Air 11/16/20 07:30 1.0 I&O- Last 24 Hours up to 6 AM0 11/16/20 05:59 Intake Total 460 ml Output Total 100 ml Balance 360 ml TOÑO BERNSTEIN MD Nov 16, 2020 14:00
[2020-11-16] MEDS: NS 1,000 ML IV SCH (14:16)
[2020-11-16] MEDS: ACETAMINOPHEN TAB 650MG DOSE (2X325MG) PO PRN (21:10)
[2020-11-16 22:00] VITALS: BP 122/56
[2020-11-17] VITALS (11 sets, daily range): BP systolic 117–161; BP diastolic 54–82
[2020-11-17] MEDS: NS 1,000 ML IV SCH ×2 (01:07→12:24)
[2020-11-17 06:30] LABS: HEMATOCRIT 22.8 % (36.0-47.0); HEMOGLOBIN 7.3 g/dl (12.0-15.5); MEAN CORPUSCULAR HEMOGLOBIN 30.5 pg (27.0-33.0); MEAN CORPUSCULAR VOLUME 95.4 fl (80.0-96.0); PLATELET COUNT, AUTOMATED 185 10^3/uL (150-450); RED BLOOD COUNT 2.39 10^6/uL (4.00-5.40); WHITE BLOOD COUNT 6.1 10^3/uL (4.0-10.0)
[2020-11-17 06:59] LABS: CALCIUM LEVEL 7.8 MG/DL (8.8-10.2); CREATININE FOR GFR 1.59 MG/DL (0.55-1.30); GLOMERULAR FILTRATION RATE 33.5 (>39); POTASSIUM SERUM 4.1 MEQ/L (3.5-5.1)
[2020-11-17] MEDS: PRAVASTATIN 20 MG TAB PO SCH (09:13)
[2020-11-17] MEDS: GABAPENTIN 300 MG CAP PO SCH ×3 (09:13→20:26)
[2020-11-17] MEDS: HumaLOG INSULIN (NovoLOG) PER UNIT SC SCH ×4 (09:13→20:26)
[2020-11-17] MEDS: ACETAMINOPHEN TAB 650MG DOSE (2X325MG) PO PRN ×2 (09:13→20:27)
[2020-11-17] MEDS ORDERED: PERCOCET 5MG/325MG TAB PO PRN (10:00)
[2020-11-17] MEDS ORDERED: NS 1,000 ML IV SCH (10:05)
--- NOTE | 2020-11-17 19:13 | IPNPDOC ---
Subjective Date Seen The patient was seen on 11/17/20. Subjective Chief Complaint/HPI Mrs. Hearn is a 75 year old female who is here for proximal comminuted fracture of the right femur. This morning, she denies any chest pain or dyspnea. Her hemoglobin continued to trend downward. Discussed transfusion with patient and she was agreeable. Objective Physical Examination General Exam: Positive: Alert, Cooperative Eye Exam: Negative: Sclera icteric Neck Exam: Positive: Supple Chest Exam: Positive: Clear to auscultation Heart Exam: Positive: Rate Normal, Regular Rhythm Abdomen Exam: Positive: Normal bowel sounds, Soft; Negative: Tenderness Extremity Exam: Positive: Edema (mild edema) Neuro Exam: Positive: Normal Speech Psych Exam: Positive: Mental status NL, Mood NL Assessment /Plan Assessment Mrs. Hearn is a 75 year old female who is here for proximal comminuted fracture of the right femur and MUNIRA. Dr. Kellogg took patient to the OR on 11/15/20 for right hip closed reduction and cephalomedullary nail fixation. Renal function has been improving, but patient has also became more anemic. Patient will be transfused with 2u of pRBC this today. Plan/VTE VTE Prophylaxis Ordered?: Yes Plan 1. Right hip fracture -Orthopedic surgery following, recommendations appreciated -Dr. Kellogg took patient to the OR on 11/15/20 for right hip closed reduction and cephalomedullary nail fixation -Pending rehab 2. MUNIRA on CKD -Creatinine on admission was 2.02 -Baseline around 1.4 to 1.6 -Close to baseline. Continue to monitor 3. Blood loss anemia -Iron low but ferritin high -Possibly blood loss anemia from recent surgery -Transfusing 2u pRBC 4. Diabetes mellitus -Sliding scale insulin and consist carb diet 5. Hypertension -Ramipril, triamterene, and HCTZ held due to MUNIRA -Renal function improving. Can consider restarting ramipril tomorrow if renal function continues to improve. 6. Hyperlipidemia -Continue pravastatin 7. DVT ppx -No chemical ppx due to anemia -SCD and TEDs Disposition: If stable tomorrow, anticipate discharge to ARU VS, I&O, 24H, Fishbone Vital Signs/I&O Vital Signs Date Time Temp Pulse Resp B/P (MAP) Pulse Ox O2 Delivery O2 Flow Rate FiO2 11/17/20 18:56 99.9 89 20 161/82 94 Room Air 11/16/20 07:30 1.0 I&O- Last 24 Hours up to 6 AM 11/17/20 06:00 Intake Total 2570 ml Output Total 100 ml Balance 2470 ml Laboratory Data 24H LABS Laboratory Tests 2 11/17/20 06:11: Nucleated Red Blood Cells % (auto) 0.0, Anion Gap 4L, Glomerular Filtration Rate 33.5L, Calcium Level 7.8L 11/17/20 08:57: Urine Color YELLOW, Urine Appearance CLEAR, Urine pH 5.0, Urine Specific Hope 1.011, Urine Protein NEGATIVE, Urine Glucose (UA) NEGATIVE, Urine Ketones NEGATIVE, Urine Blood 1+H, Urine Nitrite NEGATIVE, Urine Bilirubin NEGATIVE, Urine Urobilinogen 0.2, Urine Leukocyte Esterase NEGATIVE, Urine WBC (Auto) 0, Urine RBC (Auto) 2, Urine Hyaline Casts (Auto) 0, Urine Bacteria (Auto) 1+H, Urine Squamous Epithelial Cells 0, Urine Mucus (Auto) SMALL, Urine Sperm (Auto) 11/17/20 10:44: Lactate Dehydrogenase 239 CBC/BMP Laboratory Tests 11/17/20 06:11 KIM SINGH DO Nov 17, 2020 19:13
[2020-11-17 19:53] LABS: HEMATOCRIT 31.3 % (36.0-47.0); HEMOGLOBIN 10.3 g/dl (12.0-15.5); MEAN CORPUSCULAR HEMOGLOBIN 29.9 pg (27.0-33.0); MEAN CORPUSCULAR HGB CONC 32.9 g/dl (32.0-36.5); MEAN CORPUSCULAR VOLUME 90.7 fl (80.0-96.0); PLATELET COUNT, AUTOMATED 192 10^3/uL (150-450); RED BLOOD COUNT 3.45 10^6/uL (4.00-5.40); WHITE BLOOD COUNT 6.8 10^3/uL (4.0-10.0)
[2020-11-18 06:00] VITALS: BP 161/88
[2020-11-18 07:29] LABS: HEMATOCRIT 30.8 % (36.0-47.0); HEMOGLOBIN 10.2 g/dl (12.0-15.5); MEAN CORPUSCULAR HEMOGLOBIN 29.7 pg (27.0-33.0); MEAN CORPUSCULAR HGB CONC 33.1 g/dl (32.0-36.5); MEAN CORPUSCULAR VOLUME 89.8 fl (80.0-96.0); PLATELET COUNT, AUTOMATED 195 10^3/uL (150-450); RED BLOOD COUNT 3.43 10^6/uL (4.00-5.40)
[2020-11-18 07:49] LABS: CALCIUM LEVEL 8.3 MG/DL (8.8-10.2); CREATININE FOR GFR 1.21 MG/DL (0.55-1.30); GLOMERULAR FILTRATION RATE 45.9 (>39); POTASSIUM SERUM 4.5 MEQ/L (3.5-5.1)
[2020-11-18] MEDS ORDERED: DOCUSATE SODIUM 100MG CAPSULE PO SCH (09:00)
[2020-11-18] MEDS ORDERED: ramipriL 5 MG CAP PO SCH (09:00)
[2020-11-18] MEDS: HumaLOG INSULIN (NovoLOG) PER UNIT SC SCH ×2 (09:14→12:37)
[2020-11-18] MEDS: GABAPENTIN 300 MG CAP PO SCH (09:14)
[2020-11-18] MEDS: PRAVASTATIN 20 MG TAB PO SCH (09:14)
[2020-11-18] MEDS ORDERED: PERCOCET PO (09:25)
[2020-11-18] MEDS ORDERED: ACET1TAB55 PO (09:25)
[2020-11-18] MEDS: ACETAMINOPHEN TAB 650MG DOSE (2X325MG) PO PRN (10:22)
[2020-11-18 11:34] VITALS: BP 161/88
[2020-11-18] MEDS ORDERED: MIRALAX *UNIT DOSE* 17GM PACKET PO PRN (11:55)
--- NOTE | 2020-11-18 19:02 | DS.PDOC ---
Discharge Summary General Date of Admission Nov 14, 2020 at 18:33 Date of Discharge Nov 18, 2020 Specialist/Consultants [facility] Orthopedic surgery, Dr. Kellogg Discharge Summary PROCEDURES PERFORMED DURING STAY: Right hip closed reduction and cephalomedullary nail fixation. ADMITTING DIAGNOSES: 1. Right hip fracture 2. MUNIRA on CKD stage III 3. Anemia of chronic disease 4. Diabetes mellitus 5. Hypertension 6. Hyperlipidemia DISCHARGE DIAGNOSES: 1. Right hip fracture 2. MUNIRA on CKD stage III 3. Acute blood loss anemia in addition to anemia of chronic disease 4. Diabetes mellitus 5. Hypertension 6. Hyperlipidemia COMPLICATIONS/CHIEF COMPLAINT: Hip Fracture. HISTORY OF PRESENT ILLNESS: Copied from admitting providers H&P " This is a 75 y/o female with a pmh of htn and dm2 who presents to the ED after suffering two recent falls, three days ago and one day ago, respectively. Patient states that her first fall occurred while she was trying to do laundry and she was reaching over the machine for something and simply lost her balance and fell onto her right side. Patient states that she did not strike her head. Patient states that she was not able to get up and had to call ems to help her into a chair but refused to go to the hospital. Patient states that she was able to ambulate somewhat after this fall but with pain in her right hip. Patient states that yesterday, she was attempting to switch out one walker for another when she lost her balance yet again and fell onto her right side yet again. Patient again had to call ems but this time decided to report to the hospital for evaluation. At the time of my exam, patient is complaining of right hip pain with movement only. She is denying headaches, vision changes, weakness, paresthesias, paralysis, back pain, chest pain, abd pain, fevers, chills, dizziness, lightheadedness. Patient found to have proximal comminuted fracture of right femur on imaging. Patient also found to have a cr of 2.2, which appears to be elevated from her baseline of around 1.5 " HOSPITAL COURSE: Dr. Kellogg took patient down to the OR on 11/15/20 for a right hip closed reduction and cephalomedullary nail fixation. Patient had a right hip intertrochanteric femur fracture. After surgery, patient did well. Physical therapy worked with patient and recommended rehabilitation. Otherwise, for patient's MUNIRA, patient's triamterene/HCTZ and ACEi were held and patient was given IVF. Patient renal function improved. ACEi was added back on. Otherwise, patient's hemoglobin continued to trend downwards which may have been from the surgery. Patient was given 2u of pRBC and hemoglobin improved and has remained stable. Patient feels well today and feels ready for rehab. Patient was subsequently discharged to ARU today. DISCHARGE MEDICATIONS: Please see below. ALLERGIES: Please see below. PHYSICAL EXAMINATION ON DISCHARGE: VITAL SIGNS: Please see below. PHYSICAL EXAM: GENERAL: Comfortable, in no apparent distress. HEENT: EOMI, sclera clear. NECK: Supple. RESPIRATORY: Lungs clear to auscultation bilaterally, no rales, wheeze or rhonchi. CARDIOVASCULAR: Regular rate and rhythm. ABDOMEN: Soft. Normal bowel sounds. PSYCHOLOGICAL: Normal mood and affect LABORATORY DATA: Please see below. IMAGING: Radiologist interpretation CT head without contrast of right IMPRESSION: 1. Intertrochanteric fracture of the right hip with slight varus angulation and slight offset through the site of fracture and separation of the lesser trochanter. 2. Slight hemorrhagic infiltration is noted about the site of fracture. X-ray hip of right IMPRESSION: Comminuted intertrochanteric fracture of the proximal femur Ultrasound renal FINDINGS: Bilateral kidneys are normal in contour, size, echogenicity, and reniform shape. No hydronephrosis, nephrolithiasis, cystic or renal mass lesion. Bladder is unremarkable. Right kidney measures 10.2 x 3.7 x 4.1 cm. Left kidney measures 9.1 x 3.7 x 4.1 cm. Incidental hepatosteatosis and cholelithiasis noted. IMPRESSION: Normal bilateral kidneys. As above. PROGNOSIS: Good ACTIVITY: As tolerated. DIET: Carbohydrate consistent diet DISCHARGE PLAN: ARU DISPOSITION: Acute rehab. DISCHARGE INSTRUCTIONS: 1. Follow-up with PCP 1 week of discharge from ARU. 2. Follow-up with orthopedic surgery in 2 weeks. ITEMS TO FOLLOWUP ON ON OUTPATIENT: 1. Hemoglobin 2. Renal function DISCHARGE CONDITION: Stable. Total time spent on discharge planning, discharge summary, and medication reconciliation: 55 minutes Vital Signs/I&Os Vital Signs Date Time Temp Pulse Resp B/P (MAP) Pulse Ox O2 Delivery O2 Flow Rate FiO2 11/18/20 11:34 161/88 11/18/20 06:00 98.7 71 16 92 Room Air 11/16/20 07:30 1.0 I&O- Last 24 Hours up to 6 AM 11/18/20 06:00 Intake Total 2370 ml Output Total 100 ml Balance 2270 ml Laboratory Data Labs 24H Laboratory Tests 2 11/17/20 19:21: Nucleated Red Blood Cells % (auto) 0.0 11/17/20 20:04: Bedside Glucose (Misc Panel) 192H 11/18/20 06:28: Nucleated Red Blood Cells % (auto) 0.0, Anion Gap 7L, Glomerular Filtration Rate 45.9, Calcium Level 8.3L 11/18/20 11:41: Bedside Glucose (Misc Panel) 179H CBC/BMP Laboratory Tests 11/17/20 19:21 11/18/20 06:28 FSBS Laboratory Tests Test 11/17/20 20:04 11/18/20 11:41 Range/Units Bedside Glucose (Misc Panel) 192 179 83-110 MG/DL Discharge Medications Scheduled Ergocalciferol (Vitamin D2) (Vitamin D2) 50,000 Units Cap, 50,000 UNITS PO QWEEK, (Reported) MONDAY Gabapentin (Neurontin) 300 Mg Capsule, 300 MG PO TID, (Reported) Glipizide (Glipizide ER) 5 Mg Tab.er.24, 5 MG PO DAILY, (Reported) Metformin HCl (Metformin HCl) 1,000 Mg Tablet, 1,000 MG PO BID, (Reported) Pravastatin Sodium (Pravastatin Sodium) 40 Mg Tablet, 40 MG PO DAILY, (Reported) Ramipril (Ramipril) 5 Mg Capsule, 5 MG PO DAILY, (Reported) Scheduled PRN Acetaminophen (Acetaminophen) 325 Mg Tablet, 650 MG PO Q6HP PRN for MILD PAIN or TEMP > 101 Oxycodone/Acetaminophen (Oxycodone-Acetaminophen 5-325) 1 Each Tablet, 1 TAB PO Q6HP PRN for MODERATE PAIN (PS 5-7) Allergies Coded Allergies: No Known Allergies (Unverified , 11/14/20) KIM SINGH DO Nov 18, 2020 19:02
== END 2020-11-18 13:30 | disposition home or self-care (01) | DRG 481 ==
LOC: M ED 16:31 → EDBD 16:31 → M ED INP 18:33 → ENRESERV 19:02 → M MS5PR 21:15
PROVIDERS: ADMIT Internal Medicine; ATTEND Internal Medicine
PROC: 0QS6XZZ Reposition Right Upper Femur, External Approach (ICD-10-PCS; 2020-11-15)
PROC: 0QS636Z Reposition Right Upper Femur with Intramedullary Internal Fixation Device, Percutaneous Approach (ICD-10-PCS; principal; 2020-11-15 11:00)
DX: S72.141A Displaced intertrochanteric fracture of right femur, initial encounter for closed fracture (principal); N17.9 Acute kidney failure, unspecified; D62 Acute posthemorrhagic anemia; I12.9 Hypertensive chronic kidney disease with stage 1 through stage 4 chronic kidney disease, or unspecified chronic kidney disease; E11.22 Type 2 diabetes mellitus with diabetic chronic kidney disease; W01.0XXA Fall on same level from slipping, tripping and stumbling without subsequent striking against object, initial encounter; Y92.009 Unspecified place in unspecified non-institutional (private) residence as the place of occurrence of the external cause; D63.1 Anemia in chronic kidney disease; E78.5 Hyperlipidemia, unspecified; Z79.899 Other long term (current) drug therapy; N18.30 Chronic kidney disease, stage 3 unspecified

== ENCOUNTER 2020-11-18 10:26 | Inpatient (IN) | payer MEDICARE, OTHER ==
[~2020-11-18] VITALS: Ht 152.4 cm; Wt 88.1 kg
[~2020-11-18 10:26] MED LIST: ACET-683 PO; ACET1TAB55 PO; ERGO500029 PO; GLIP5TAB20 PO; METF10004 PO; NEUR300C PO; PERCOCET PO; PRAV40TA2 PO; RAMI1CAP24 PO; RAMI1CAP26 PO; TRIA37.5 PO
[2020-11-18] MEDS ORDERED: GLUCAGON INJ 1MG VIAL SC PRN (13:20)
[2020-11-18] MEDS ORDERED: GLUCOSE 4GM CHEW TABLET PO PRN (13:20)
[2020-11-18] MEDS ORDERED: DEXTROSE 50% 50 ML SYRINGE IV PRN (13:20)
[2020-11-18] MEDS ORDERED: BISACODYL 10 MG SUPP PR PRN (13:20)
[2020-11-18] MEDS ORDERED: ONDANSETRON 4 MG ORAL DISINTEGRATING TAB PO PRN (13:20)
[2020-11-18 13:45] VITALS: BP 178/80
[2020-11-18] MEDS ORDERED: PERCOCET 5MG/325MG TAB PO PRN (15:15)
[2020-11-18] MEDS: GABAPENTIN 300 MG CAP PO SCH ×2 (15:47→20:17)
[2020-11-18] MEDS: ACETAMINOPHEN 500 MG TAB PO SCH ×2 (15:48→20:18)
[2020-11-18] MEDS: REMEDY PHYTOPLEX Z-GUARD PASTE 113GM TUBE (FROM STOREROOM PRODUCT) TOP SCH ×2 (15:49→21:00)
[2020-11-18] MEDS: HumaLOG INSULIN (NovoLOG) PER UNIT SC SCH ×2 (17:01→21:00)
[2020-11-18 20:00] VITALS: BP 176/77
[2020-11-18] MEDS: SENNA 8.6 MG TAB (SENOKOT) PO SCH (20:17)
[2020-11-18] MEDS: DOCUSATE SODIUM 100MG CAPSULE PO SCH (20:17)
[2020-11-19 06:00] VITALS: BP 168/88
[2020-11-19 07:39] LABS: BASO % 0.4 % (0.0-1.0); EOS # 0.2 10^3/uL (0.0-0.5); EOS % 2.7 % (0.0-3.0); HEMATOCRIT 33.4 % (36.0-47.0); HEMOGLOBIN 11.2 g/dl (12.0-15.5); LYMPH # 1.3 10^3/uL (1.5-5.0); LYMPH % 16.8 % (24.0-44.0); MEAN CORPUSCULAR HGB CONC 33.5 g/dl (32.0-36.5); MEAN CORPUSCULAR VOLUME 89.5 fl (80.0-96.0); MONO # 0.8 10^3/uL (0.0-0.8); MONO % 9.9 % (2.0-8.0); NEUTROPHILS # 5.3 10^3/uL (1.5-8.5); NEUTROPHILS % 69.4 % (36.0-66.0); PLATELET COUNT, AUTOMATED 225 10^3/uL (150-450); RED BLOOD COUNT 3.73 10^6/uL (4.00-5.40); WHITE BLOOD COUNT 7.6 10^3/uL (4.0-10.0)
[2020-11-19] MEDS: GABAPENTIN 300 MG CAP PO SCH ×3 (07:42→20:29)
[2020-11-19] MEDS: HumaLOG INSULIN (NovoLOG) PER UNIT SC SCH ×4 (07:43→20:28)
[2020-11-19] MEDS: DOCUSATE SODIUM 100MG CAPSULE PO SCH ×2 (07:44→20:29)
[2020-11-19] MEDS: glipiZIDE XL 5 MG TABCR PO SCH (07:44)
[2020-11-19] MEDS: PRAVASTATIN 20 MG TAB PO SCH (07:44)
[2020-11-19] MEDS: ramipriL 5 MG CAP PO SCH (07:45)
[2020-11-19] MEDS: ACETAMINOPHEN 500 MG TAB PO SCH ×3 (07:45→20:29)
[2020-11-19] MEDS: REMEDY PHYTOPLEX Z-GUARD PASTE 113GM TUBE (FROM STOREROOM PRODUCT) TOP SCH ×3 (07:46→20:30)
[2020-11-19] MEDS: PANTOPRAZOLE 40MG TAB (PROTONIX) PO SCH (07:46)
[2020-11-19 08:04] LABS: ALBUMIN 2.9 GM/DL (3.2-5.2); BILIRUBIN,TOTAL 0.8 MG/DL (0.2-1.0); CREATININE FOR GFR 1.1 MG/DL (0.55-1.30); GLOMERULAR FILTRATION RATE 51.3 (>39); POTASSIUM SERUM 4.5 MEQ/L (3.5-5.1); TOTAL PROTEIN 6.4 GM/DL (6.4-8.2)
[2020-11-19 09:00] VITALS: BP 150/62
--- NOTE | 2020-11-19 10:50 | HPEPDOC ---
[employer] Receptionist Note DATE OF ADMISSION: 11-18-20 DATE OF SERVICE: 11-19-20 TIME OF ADMISSION: Please refer to physician's admission order. SOURCE OF ADMISSION INFORMATION: [facility] record and patient CHIEF COMPLAINT: hip fracture HISTORY OF PRESENT ILLNESS: 75F pmh HTn, DM who fell at home while doing laundry and presented to [facility] ED on 11-14-20 complaining of henry and difficulty walking. Xrays revealed a comminuted right femur fracture for which she was evaluated by orthopedics. She underwent a right hip ORIF on 11-15-20 after which she developed significant post-op bleeding with a Hgb of 7.3, weakness, and required 2 prbc transfusions. Additionally she developed MUNIRA also likely due to blood loss. Her diuretic and PARAG-I were held due to her worsening kidney function which did improve. Additionally Ac was held for DVT prophylaxis due to concern for worsening bleeding. She was very weak in therapy with difficulty with mobility and ADLs and deemed medically appropriate for discharge to ARU on 11-18-20. REVIEW OF SYSTEMS: The following is a completed review of systems and has been reviewed. Review of systems otherwise unremarkable. PAIN: Patient self reports right hip pain EYES: No recent vision changes EARS, NOSE, & THROAT: No throat pain, or dysphagia, or rhinorrhea CARDIOVASCULAR: Denies chest pain or palpitations PULMONARY: Denies shortness of breath GASTROINTESTINAL: Denies constipation/diarrhea GENITOURINARY: denies dysuria MUSCULOSKELETAL: s/p right hip fracture NEUROLOGICAL:denies paresthesia HEMATOLOGICAL: +anemia SKIN: right hip incision PSYCHIATRIC: Unremarkable All other review of systems found to be negative. PAST MEDICAL HISTORY: as per [facility] PAST SURGICAL HISTORY: Hx of ALLERGIES: Please see below. MEDICATIONS: Please see below. FAMILY HISTORY: copd SOCIAL HISTORY: No etoh/illicit drugs/smoking DIET: low sodium PHYSICAL EXAMINATION: VITAL SIGNS: Please see below. GENERAL: Pleasant and cooperative. No acute distress. HEENT: PERRL. Extraocular movements intact. Clear conjunctiva CARDIOVASCULAR: [Regular rate and rhythm. No murmurs, rubs, or gallops LUNGS: Clear to auscultation bilaterally. No wheezes. No rhonchi ABDOMEN: Soft, nontender, nondistended. Positive bowel sounds. Normal active bowel sounds NEUROLOGICAL: Alert and oriented times three. Cranial nerves II through XII grossly intact. Sensation grossly intact inlcuding 1st web space left foot EXTREMITIES: 5\5 strength bilateral upper extremities.5\5 strength right ankle DF/and EHL (limited due to hip surgery) 5/5 strength in left lower extremity. SKIN: right hip janet-incision with mild edema, no induration/erythema +sacral ulcer LABORATORY DATA: Please see below. IMAGING: Imaging documentation personally reviewed by record FUNCTIONAL STATUS: Premorbid: Independent with all activities of daily life as well as mobility On Admission: Min assist for functional transfers, ambulation, bed mobility, dressing GOALS: Mod-I for functional transfers, ambulation, bed mobility, dressing, bathing, stairs ASSESSMENT:75-year-old F with past medical history of HTN who presents status post right hip fracture and ORIF PLAN: 1. REhab- PT/OT advance mobility and ADLs, strengthen/stretch/maintain ROM all 4limbs 2. ORtho s/p right hip ORIF due to femur fracture 11-15-20, WBAT f/u ortho outpatient 3. CArdiac- hx of HTN c/u BP meds -HLD c/u statin 4. Resp- monitor for infection 5. Endo- hx of DM c/u glipizide and ISS, adjust prn 6. Heme- post-op anemia due to blood loss s/p prbc tranfusion, monitor while on ARU and consider transfusion if Hgb <8 or symptomatic 7. DVT ppx- TEDs, holding AC due to recent bleed- will order dopplers to r/o DVT -confirmed with hpsitlaist ok to start Xarelto 10mg now that Hgb improved 8. Pain- tylenol, oxycodone, and gabapentin 9. GI ppx- protonix 10. Dispo- TBD POST ADMISSION PHYSICIAN EVALUATION: Medical and functional status: Description of medical status, medical assessment: As above. Rehabilitation diagnosis and current and prior cold morbid medical conditions as above. Risk of complications and plans to mitigate them as above. Description of functional status current status is as above. Prior status as above. Status compared to preadmission: There are no clinically significant differences between the patient's current status and the information described on the preadmission screening document. Treatment plan anticipated: Treatment plan is as described above. Required disciplines including physical therapy, occupational therapy, others as noted above. Intensity of services: 3 hours a day, 6 days a week. Special considerations: There are no specific special or safety considerations that would likely preclude immediate implementation of an intensive rehabilitation program or subsequently influence the plan of care. ATTESTATION: Considering all the information above, it is my best judgment that this patient requires intensive rehabilitation therapy as described above and an inpatient hospital environment due to the complexity of nursing, medical, and rehabilitation needs required by the patient. Furthermore, this patient can reasonably be expected to participate in an benefit from an inpatient rehabilitation stay with an interdisciplinary team approach to the delivery of rehabilitation care under the direction and supervision of rehabilitation physician. PROGNOSIS: Excellent ESTIMATED LENGTH OF STAY:12-16 days. PROJECTED DISCHARGE DESTINATION: Home with family support and any durable medical equipment required to increase functional safety and mobility TIME SPENT COUNSELING AND COORDINATING INITIAL CARE: Greater than 70 minutes. Vital Signs Vital Sign - Last 24 Hours 11/18/20 11/18/20 11/19/20 11/19/20 13:45 20:00 06:00 07:45 Temp 97.9 98.0 97.7 Pulse 83 85 83 Resp 18 18 18 B/P (MAP) 178/80 (112) 176/77 (110) 168/88 (114) 168/88 Pulse Ox 96 96 96 O2 Delivery Room Air Room Air Room Air Laboratory Data CBC/BMP Laboratory Tests 11/19/20 07:07 Labs 24H Laboratory Tests 2 11/18/20 16:39: Bedside Glucose (Misc Panel) 235H 11/18/20 20:11: Bedside Glucose (Misc Panel) 180H 11/19/20 06:03: Bedside Glucose (Misc Panel) 163H 11/19/20 07:07: Immature Granulocyte % (Auto) 0.8, Neutrophils (%) (Auto) 69.4H, Lymphocytes (%) (Auto) 16.8L, Monocytes (%) (Auto) 9.9H, Eosinophils (%) (Auto) 2.7, Basophils (%) (Auto) 0.4, Neutrophils # (Auto) 5.3, Lymphocytes # (Auto) 1.3L, Monocytes # (Auto) 0.8, Eosinophils # (Auto) 0.2, Basophils # (Auto) 0.0, Nucleated Red Blood Cells % (auto) 0.0, Anion Gap 8, Glomerular Filtration Rate 51.3, Calcium Level 9.0, Total Bilirubin 0.8, Aspartate Amino Transf (AST/SGOT) 23, Alanine Aminotransferase (ALT/SGPT) 20, Alkaline Phosphatase 92, Total Protein 6.4, Albumin 2.9L, Albumin/Globulin Ratio 0.8L FSBS Laboratory Tests Test 11/18/20 16:39 11/18/20 20:11 11/19/20 06:03 Range/Units Bedside Glucose (Misc Panel) 235 180 163 83-110 MG/DL Home Medications Scheduled Ergocalciferol (Vitamin D2) (Vitamin D2) 50,000 Units Cap, 50,000 UNITS PO QWEEK, (Reported) MONDAY Gabapentin (Neurontin) 300 Mg Capsule, 300 MG PO TID, (Reported) Glipizide (Glipizide ER) 5 Mg Tab.er.24, 5 MG PO DAILY, (Reported) Metformin HCl (Metformin HCl) 1,000 Mg Tablet, 1,000 MG PO BID, (Reported) Pravastatin Sodium (Pravastatin Sodium) 40 Mg Tablet, 40 MG PO DAILY, (Reported) Ramipril (Ramipril) 5 Mg Capsule, 5 MG PO DAILY, (Reported) Scheduled PRN Acetaminophen (Acetaminophen) 325 Mg Tablet, 650 MG PO Q6HP PRN for MILD PAIN or TEMP > 101 Oxycodone/Acetaminophen (Oxycodone-Acetaminophen 5-325) 1 Each Tablet, 1 TAB PO Q6HP PRN for MODERATE PAIN (PS 5-7) Allergies Coded Allergies: No Known Allergies (Unverified , 11/14/20) A-FIB/CHADSVASC A-FIB History Current/History of A-Fib/PAF?: No Current PO Anticoag Therapy: No IHSAN CHRISTOPHER MD Nov 19, 2020 10:50
[2020-11-19] MEDS: METOPROLOL TART 25 MG TABLET PO SCH ×2 (11:27→20:30)
[2020-11-19 14:14] VITALS: BP 175/87
--- NOTE | 2020-11-19 16:05 | REP ---
INDICATION: immobility. COMPARISON: Comparison study July 07, 2020.. TECHNIQUE: Bilateral lower extremity duplex venous scanning is performed from the groin to the ankle level. FINDINGS: The deep veins are anechoic and fully compressible from the groin to the popliteal fossa in the left and right lower extremity. Color flow imaging is homogeneous. Spectral Doppler interrogation demonstrates intact respiratory variation in flow and normal manual augmentation of flow. There is no evidence of deep vein thrombosis in the femoropopliteal veins. The calf veins could not be visualized due to patient body habitus and edema this exam.. IMPRESSION: No evidence of DVT in the femoropopliteal veins. Exam limited by patient body habitus and lower extremity edema.. <Electronically signed by Estrada Mena > 11/19/20 0275
[2020-11-19 16:43] LABS: INR 0.94; PARTIAL THROMBOPLASTIN TIME 28.6 SECONDS (24.2-38.5); PROTHROMBIN TIME 12.8 SECONDS (12.5-14.3)
[2020-11-19] MEDS: RIVAROXABAN 10 MG TAB (XARELTO) PO SCH (17:22)
--- NOTE | 2020-11-19 17:35 | IPNPDOC ---
Subjective Date Seen The patient was seen on 11/19/20. Subjective Chief Complaint/HPI Mrs. Hearn is a 75 year old female who is here for proximal comminuted fracture of the right femur. Dr. Kellogg took the patient to the OR on 11/15/20 for a right hip closed reduction and cephalomedullary nail fixation. Her hospitalization was complicated by MUNIRA and anemia, both of which has now resolved. She was then discharged to ARU for rehab. She was seen this morning. She feels well. Denies any fever/chills, chest pain, dyspnea, abdominal pain, or dysuria. I discussed case with Dr. Gallego, patient to be started on Xarelto 10mg qD for DVT ppx. Otherwise, blood pressure is a little elevated, will start patient on amlodipine. Objective Physical Examination General Exam: Positive: Alert, Cooperative Eye Exam: Positive: EOMI; Negative: Sclera icteric Neck Exam: Positive: Supple Chest Exam: Positive: Clear to auscultation Heart Exam: Positive: Rate Normal, Regular Rhythm Abdomen Exam: Positive: Normal bowel sounds, Soft; Negative: Tenderness Extremity Exam: Positive: Edema (mild pitting edema) Neuro Exam: Positive: Normal Speech Psych Exam: Positive: Mental status NL, Mood NL Assessment /Plan Assessment Mrs. Hearn is a 75 year old female who is here for proximal comminuted fracture of the right femur. Dr. Kellogg took the patient to the OR on 11/15/20 for a right hip closed reduction and cephalomedullary nail fixation. Her hospitalization was complicated by MUNIRA and anemia, both of which has now resolved. She was then discharged to ARU for rehab. Plan/VTE VTE Prophylaxis Ordered?: Yes Plan 1. Right hip fracture -Dr. Kellogg took patient to the OR on 11/15/20 for right hip closed reduction and cephalomedullary nail fixation -Patient now in ARU for rehab -Patient was started on Xarelto 10mg qD for DVT ppx 2. Chronic kidney disease stage 3 -Stable -Supportive care 3. Anemia of chronic disease -Initially had blood loss anemia from surgery -Hemoglobin has been stable -Monitor CBC while on Xarelto 4. Diabetes mellitus -Sliding scale insulin and consist carb diet 5. Hypertension -Continue ramipril -Added on amlodipine 6. Hyperlipidemia -Continue pravastatin 7. DVT ppx -Xarelto 10mg qD Disposition: Per ARU VS, I&O, 24H, Elin Vital Signs/I&O Vital Signs Date Time Temp Pulse Resp B/P (MAP) Pulse Ox O2 Delivery O2 Flow Rate FiO2 11/19/20 14:14 98.2 72 18 175/87 (116) 97 Room Air I&O- Last 24 Hours up to 6 AM 11/19/20 06:00 Intake Total 350 ml Balance 350 ml Laboratory Data 24H LABS Laboratory Tests 2 11/18/20 20:11: Bedside Glucose (Misc Panel) 180H 11/19/20 06:03: Bedside Glucose (Misc Panel) 163H 11/19/20 07:07: Immature Granulocyte % (Auto) 0.8, Neutrophils (%) (Auto) 69.4H, Lymphocytes (%) (Auto) 16.8L, Monocytes (%) (Auto) 9.9H, Eosinophils (%) (Auto) 2.7, Basophils (%) (Auto) 0.4, Neutrophils # (Auto) 5.3, Lymphocytes # (Auto) 1.3L, Monocytes # (Auto) 0.8, Eosinophils # (Auto) 0.2, Basophils # (Auto) 0.0, Nucleated Red Blood Cells % (auto) 0.0, Anion Gap 8, Glomerular Filtration Rate 51.3, Calcium Level 9.0, Total Bilirubin 0.8, Aspartate Amino Transf (AST/SGOT) 23, Alanine Aminotransferase (ALT/SGPT) 20, Alkaline Phosphatase 92, Total Protein 6.4, Albumin 2.9L, Albumin/Globulin Ratio 0.8L 11/19/20 11:27: Bedside Glucose (Misc Panel) 279H 11/19/20 16:07: Prothrombin Time 12.8, Prothromb Time International Ratio 0.94, Activated Partial Thromboplast Time 28.6 11/19/20 16:42: Bedside Glucose (Misc Panel) 114H CBC/BMP Laboratory Tests 11/19/20 07:07 KIM SINGH DO Nov 19, 2020 17:03
[2020-11-19] MEDS: amLODIPine 5 MG TAB PO SCH (17:37)
[2020-11-19 20:00] VITALS: BP 134/75
[2020-11-19] MEDS: SENNA 8.6 MG TAB (SENOKOT) PO SCH (20:29)
[2020-11-20 06:00] VITALS: BP 161/72
[2020-11-20 06:44] LABS: BASO % 0.3 % (0.0-1.0); EOS # 0.2 10^3/uL (0.0-0.5); EOS % 2.5 % (0.0-3.0); HEMATOCRIT 33.3 % (36.0-47.0); HEMOGLOBIN 10.7 g/dl (12.0-15.5); LYMPH # 1.3 10^3/uL (1.5-5.0); LYMPH % 17.7 % (24.0-44.0); MEAN CORPUSCULAR HEMOGLOBIN 29.2 pg (27.0-33.0); MEAN CORPUSCULAR HGB CONC 32.1 g/dl (32.0-36.5); MONO # 0.7 10^3/uL (0.0-0.8); MONO % 9.2 % (2.0-8.0); NEUTROPHILS # 5.3 10^3/uL (1.5-8.5); NEUTROPHILS % 69.5 % (36.0-66.0); PLATELET COUNT, AUTOMATED 241 10^3/uL (150-450); RED BLOOD COUNT 3.66 10^6/uL (4.00-5.40); WHITE BLOOD COUNT 7.6 10^3/uL (4.0-10.0)
[2020-11-20 07:11] LABS: CALCIUM LEVEL 8.9 MG/DL (8.8-10.2); CREATININE FOR GFR 1.31 MG/DL (0.55-1.30); GLOMERULAR FILTRATION RATE 41.9 (>39); POTASSIUM SERUM 4.5 MEQ/L (3.5-5.1)
[2020-11-20] MEDS: PRAVASTATIN 20 MG TAB PO SCH (08:23)
[2020-11-20] MEDS: ramipriL 5 MG CAP PO SCH (08:23)
[2020-11-20] MEDS: PANTOPRAZOLE 40MG TAB (PROTONIX) PO SCH (08:23)
[2020-11-20] MEDS: ACETAMINOPHEN 500 MG TAB PO SCH ×3 (08:24→22:08)
[2020-11-20] MEDS: glipiZIDE XL 5 MG TABCR PO SCH (08:24)
[2020-11-20] MEDS: METOPROLOL TART 25 MG TABLET PO SCH (08:24)
[2020-11-20] MEDS: GABAPENTIN 300 MG CAP PO SCH ×3 (08:25→21:19)
[2020-11-20] MEDS: amLODIPine 5 MG TAB PO SCH (08:25)
[2020-11-20] MEDS: DOCUSATE SODIUM 100MG CAPSULE PO SCH ×2 (08:25→21:19)
[2020-11-20] MEDS: HumaLOG INSULIN (NovoLOG) PER UNIT SC SCH ×4 (08:28→21:00)
--- NOTE | 2020-11-20 10:47 | IPNPDOC ---
PM&R Progress Note DATE OF SERVICE: Nov 20, 2020 [employer] Progress Note Subjective: Patient stating she is hesitant to start getting IV fluids because she does not want to be stuck, but she agreed to get IV and understands her kidneys are getting worse. REVIEW OF SYSTEMS: The following is a completed review of systems and has been reviewed. Review of systems otherwise unremarkable. PAIN: Patient self reports right hip pain EYES: No recent vision changes EARS, NOSE, & THROAT: No throat pain, or dysphagia, or rhinorrhea CARDIOVASCULAR: Denies chest pain or palpitations PULMONARY: Denies shortness of breath GASTROINTESTINAL: Denies constipation/diarrhea GENITOURINARY: denies dysuria MUSCULOSKELETAL: s/p right hip fracture NEUROLOGICAL:denies paresthesia HEMATOLOGICAL: +anemia SKIN: right hip incision PSYCHIATRIC: Unremarkable All other review of systems found to be negative. PHYSICAL EXAMINATION: VITAL SIGNS: Please see below. GENERAL: Pleasant and cooperative. No acute distress. HEENT: PERRL. Extraocular movements intact. Clear conjunctiva CARDIOVASCULAR: [Regular rate and rhythm. No murmurs, rubs, or gallops LUNGS: Clear to auscultation bilaterally. No wheezes. No rhonchi ABDOMEN: Soft, nontender, nondistended. Positive bowel sounds. Normal active bowel sounds NEUROLOGICAL: Alert and oriented times three. Cranial nerves II through XII grossly intact. Sensation grossly intact inlcuding 1st web space left foot EXTREMITIES: 5\5 strength bilateral upper extremities.5\5 strength right ankle DF/and EHL (limited due to hip surgery) 5/5 strength in left lower extremity. SKIN: right hip janet-incision with mild edema, no induration/erythema +sacral ulcer LABORATORY DATA: Please see below. ASSESSMENT:75-year-old F with past medical history of HTN who presents status post right hip fracture and ORIF PLAN: 1. REhab- PT/OT advance mobility and ADLs, strengthen/stretch/maintain ROM all 4limbs 2. ORtho s/p right hip ORIF due to femur fracture 11-15-20, WBAT f/u ortho outpatient 3. CArdiac- hx of HTN c/u BP meds -HLD c/u statin 4. Resp- monitor for infection 5. Endo- hx of DM c/u glipizide and ISS, adjust prn 6. Heme- post-op anemia due to blood loss s/p prbc tranfusion, monitor while on ARU and consider transfusion if Hgb <8 or symptomatic 7. DVT ppx- TEDs, holding AC due to recent bleed- dopplers negative for DVT -confirmed with hospitalist ok to start Xarelto 10mg now that Hgb improved 8. Pain- tylenol, oxycodone, and gabapentin 9. GI ppx- protonix 10. renal- acute MUNIRA Manager [employer] 1.31 today, will hold PARAG, and give 1L gentle IVF, recheck BMP tomorrow, will consult renal if does not improve 11. Dispo- TBD Allergies Coded Allergies: No Known Allergies (Unverified , 11/14/20) Vital Signs Vital Signs Date Time Temp Pulse Resp B/P (MAP) Pulse Ox O2 Delivery O2 Flow Rate FiO2 11/20/20 08:24 74 161/72 11/20/20 06:00 97.6 18 95 Room Air Laboratory Data CBC/BMP Laboratory Tests 11/20/20 06:24 Labs 24H Laboratory Tests 2 11/19/20 11:27: Bedside Glucose (Misc Panel) 279H 11/19/20 16:07: Prothrombin Time 12.8, Prothromb Time International Ratio 0.94, Activated Partial Thromboplast Time 28.6 11/19/20 16:42: Bedside Glucose (Misc Panel) 114H 11/19/20 19:59: Bedside Glucose (Misc Panel) 139H 11/20/20 05:19: Bedside Glucose (Misc Panel) 131H 11/20/20 06:24: Immature Granulocyte % (Auto) 0.8, Neutrophils (%) (Auto) 69.5H, Lymphocytes (%) (Auto) 17.7L, Monocytes (%) (Auto) 9.2H, Eosinophils (%) (Auto) 2.5, Basophils (%) (Auto) 0.3, Neutrophils # (Auto) 5.3, Lymphocytes # (Auto) 1.3L, Monocytes # (Auto) 0.7, Eosinophils # (Auto) 0.2, Basophils # (Auto) 0.0, Nucleated Red Blood Cells % (auto) 0.0, Anion Gap 3L, Glomerular Filtration Rate 41.9, Calcium Level 8.9 Current Medications Current Medications Current Medications Medications (Trade) Dose Ordered Sig/Aftab Route PRN Reason Start Time Stop Time Status Last Admin Dose Admin Acetaminophen (Tylenol Tab) 1,000 mg TID PO 11/18/20 16:00 11/20/20 08:24 Amlodipine Besylate (Norvasc) 5 mg DAILY PO 11/19/20 17:25 11/20/20 08:25 Bisacodyl (Dulcolax Suppository) 10 mg DAILYPRN PRN NE CONSTIPATION 11/18/20 13:20 Dextrose (Dextrose 50%) 25 ml ASDIRECTED PRN IV SEE LABEL COMMENTS 11/18/20 13:20 Docusate Sodium (Colace) 100 mg BID PO 11/18/20 21:00 11/20/20 08:25 Gabapentin (Neurontin) 300 mg TID PO 11/18/20 16:00 11/20/20 08:25 Glipizide (Glucotrol Xl) 5 mg DAILY@0730 PO 11/19/20 07:30 11/20/20 08:24 Glucagon (Glucagon) 1 mg ASDIRECTED PRN SC SEE LABEL COMMENTS 11/18/20 13:20 Glucose (Glucose) 16 GM ASDIRECTED PRN PO SEE LABEL COMMENTS 11/18/20 13:20 Home Med (Med Rec Complete!) ASDIRECTED XX 11/18/20 14:05 11/18/20 14:28 DC Insulin Human Lispro (HumaLOG INSULIN) SEE PROTOCOL TABLE AC SC 11/18/20 17:30 11/20/20 08:28 Insulin Human Lispro (HumaLOG INSULIN) SEE PROTOCOL TABLE QHS SC 11/18/20 21:00 Metoprolol Tartrate (Lopressor) 25 mg BID PO 11/19/20 10:50 11/20/20 08:24 Ondansetron HCl (Zofran Odt) 4 mg Q6HP PRN PO NAUSEA OR VOMITING 11/18/20 13:20 Oxycodone/ Acetaminophen (Percocet 5mg/ 325mg Tablet) 1 tab Q6HP PRN PO PAIN LEVEL 6-10 11/18/20 15:15 Pantoprazole Sodium (Protonix) 40 mg DAILY PO 11/19/20 09:00 11/20/20 08:23 Pravastatin Sodium (Pravachol) 40 mg QAM PO 11/19/20 09:00 11/20/20 08:23 Ramipril (Altace) 5 mg DAILY PO 11/19/20 09:00 11/20/20 08:23 Rivaroxaban (Xarelto) 10 mg DAILY@18 PO 11/19/20 18:00 11/19/20 17:22 Senna (Senokot) 1 tab QHS PO 11/18/20 21:00 11/19/20 20:29 IHSAN CHRISTOPHER MD Nov 20, 2020 10:47
[2020-11-20] MEDS ORDERED: NS 1,000 ML IV ONE ×2 (10:50→10:55)
[2020-11-20] MEDS: REMEDY PHYTOPLEX Z-GUARD PASTE 113GM TUBE (FROM STOREROOM PRODUCT) TOP SCH ×3 (12:36→21:21)
[2020-11-20 14:00] VITALS: BP 132/64
[2020-11-20] MEDS: METOPROLOL TART 50 MG TAB PO SCH ×2 (15:54→21:20)
[2020-11-20] MEDS: RIVAROXABAN 10 MG TAB (XARELTO) PO SCH (17:15)
[2020-11-20 20:00] VITALS: BP 139/73
[2020-11-20] MEDS: SENNA 8.6 MG TAB (SENOKOT) PO SCH (21:20)
[2020-11-21] MEDS: METOPROLOL TART 50 MG TAB PO SCH ×3 (05:34→22:07)
[2020-11-21 06:00] VITALS: BP 149/72
[2020-11-21 07:22] LABS: CALCIUM LEVEL 8.9 MG/DL (8.8-10.2); CREATININE FOR GFR 1.45 MG/DL (0.55-1.30); GLOMERULAR FILTRATION RATE 37.3 (>39); POTASSIUM SERUM 5.1 MEQ/L (3.5-5.1)
[2020-11-21] MEDS: DOCUSATE SODIUM 100MG CAPSULE PO SCH ×2 (08:41→19:55)
[2020-11-21] MEDS: GABAPENTIN 300 MG CAP PO SCH ×3 (08:41→19:55)
[2020-11-21] MEDS: PANTOPRAZOLE 40MG TAB (PROTONIX) PO SCH (08:41)
[2020-11-21] MEDS: PRAVASTATIN 20 MG TAB PO SCH (08:42)
[2020-11-21] MEDS: REMEDY PHYTOPLEX Z-GUARD PASTE 113GM TUBE (FROM STOREROOM PRODUCT) TOP SCH ×3 (08:42→19:55)
[2020-11-21] MEDS: glipiZIDE XL 5 MG TABCR PO SCH (08:42)
[2020-11-21] MEDS: HumaLOG INSULIN (NovoLOG) PER UNIT SC SCH ×4 (08:42→19:52)
[2020-11-21] MEDS: ACETAMINOPHEN 500 MG TAB PO SCH ×3 (08:46→19:55)
[2020-11-21] MEDS: amLODIPine 5 MG TAB PO SCH (09:21)
[2020-11-21] MEDS ORDERED: NS 1,000 ML IV ONE (09:50)
[2020-11-21 14:00] VITALS: BP 139/67
[2020-11-21] MEDS: RIVAROXABAN 10 MG TAB (XARELTO) PO SCH (18:24)
[2020-11-21] MEDS: SENNA 8.6 MG TAB (SENOKOT) PO SCH (19:55)
[2020-11-21 20:00] VITALS: BP 120/56
[2020-11-22] MEDS: METOPROLOL TART 50 MG TAB PO SCH ×3 (05:19→21:23)
[2020-11-22 06:00] VITALS: BP 105/55
[2020-11-22 07:13] LABS: CALCIUM LEVEL 8.7 MG/DL (8.8-10.2); CREATININE FOR GFR 1.65 MG/DL (0.55-1.30); GLOMERULAR FILTRATION RATE 32.1 (>39); POTASSIUM SERUM 4.6 MEQ/L (3.5-5.1)
[2020-11-22] MEDS: glipiZIDE XL 5 MG TABCR PO SCH (07:52)
[2020-11-22] MEDS: PANTOPRAZOLE 40MG TAB (PROTONIX) PO SCH (07:52)
[2020-11-22] MEDS: HumaLOG INSULIN (NovoLOG) PER UNIT SC SCH ×4 (07:52→19:49)
[2020-11-22] MEDS: DOCUSATE SODIUM 100MG CAPSULE PO SCH ×2 (07:52→19:48)
[2020-11-22] MEDS: PRAVASTATIN 20 MG TAB PO SCH (07:52)
[2020-11-22] MEDS: GABAPENTIN 300 MG CAP PO SCH ×3 (07:52→19:48)
[2020-11-22] MEDS: ACETAMINOPHEN 500 MG TAB PO SCH ×3 (07:53→19:49)
[2020-11-22] MEDS: REMEDY PHYTOPLEX Z-GUARD PASTE 113GM TUBE (FROM STOREROOM PRODUCT) TOP SCH ×3 (07:53→19:49)
[2020-11-22] MEDS: amLODIPine 5 MG TAB PO SCH (07:56)
[2020-11-22] MEDS ORDERED: NS 1,000 ML IV ONE (08:40)
[2020-11-22 14:00] VITALS: BP 140/66
[2020-11-22] MEDS: FUROSEMIDE 40MG/4ML VIAL (J1940) IV SCH ×2 (16:24→23:58)
[2020-11-22] MEDS: RIVAROXABAN 10 MG TAB (XARELTO) PO SCH (18:11)
[2020-11-22] MEDS: SENNA 8.6 MG TAB (SENOKOT) PO SCH (19:48)
--- NOTE | 2020-11-22 19:49 | CR ---
NEPHROLOGY CONSULTATION DATE: 11/22/2020 REQUESTING PHYSICIAN: Dr. Sondra Whitley CONSULTING PHYSICIAN: Dr. Praveena Corbin REASON FOR CONSULTATION: Management of acute renal failure. CHIEF COMPLAINT: The patient was admitted to the Rehab Unit after right hip surgery. HISTORY OF PRESENT ILLNESS: Marina Hearn is a 75-year-old female with a past medical history of hypertension, obesity, insulin dependent diabetes, multiple other comorbidities as mentioned below. She presented to the hospital on November 14, 2020 with pain and difficulty walking. X-rays show a comminuted right femur fracture. The patient underwent right hip open reduction internal fixation on November 15, 2020. She developed postop bleeding required multiple 2 units PRBC transfusion. The patient also developed acute renal failure after that. Diuretics and don inhibitors were stopped, and finally she was transferred to the Rehab Unit to help with mobility and activities of daily life. The patient's creatinine 3 days ago was 1.1. However it has bumped up to 1.6 today despite the patient getting IV fluid hydration, so Nephrology service was called for further help in the management of this patient. I saw and evaluated the patient today morning at the bedside. She was getting IV fluid hydration. She was sitting actually in the sofa and she reports that she has persistent lower extremity edema and tightness of the extremities, and she reports a mild amount of pain in the right hip surgical site. MEDICAL HISTORY: The patient's past medical history is significant for: 1. Hypertension. 2. Diabetes mellitus type 2, insulin dependent. 3. Obesity. PAST SURGICAL HISTORY: The patient's past surgical history is significant for: 1. Status post open reduction, internal fixation of the right hip fracture on November 15. 2. History of in the past. ALLERGIES: No known drug allergies. FAMILY HISTORY: No significant family history of end-stage renal disease. There is a positive history of COPD in the family. SOCIAL HISTORY: There is no significant history of illicit drug abuse, alcohol abuse or smoking. REVIEW OF SYSTEMS: Constitutional: She denies any fevers or chills. Eyes: She denies any blurry vision, double vision. ENT: She denies any dysphagia or odynophagia. Cardiovascular: She denies any chest pain. She does report lower extremity edema. Respiratory: She denies any shortness of breath. Gastrointestinal: She denies any nausea or vomiting. Genitourinary: She reports incontinence. Musculoskeletal: She reports right hip pain and lower extremity edema. Skin: She denies any rashes or ulcers. Hematological/Oncological: She denies any easy bleeding or bruising. Endocrine: She reports diabetes mellitus type 2. CKS: She denies any strokes or seizures. All other review of systems is negative. PHYSICAL EXAMINATION: GENERAL APPEARANCE: The patient is awake, alert, oriented x3, obese body habitus, sitting up in the sofa. VITAL SIGNS: Temperature is 97.5 degrees Fahrenheit, blood pressure 140/66, pulse is 76, respiratory rate of 18, saturating 96% on room air. HEAD AND NECK: Extraocular muscles intact. Pupils are equally round and reactive to light. Mucous membranes are moist. Neck is supple. There is mildly elevated jugular venous distention. CARDIOVASCULAR: S1, S2, regular rate. EXTREMITIES: 3+ edema of the right lower extremity starting from the foot all the way up to the thighs and 2+ edema of the left lower extremity. RESPIRATORY: Chest is clear to auscultation bilaterally. Bilaterally currently no rales or rhonchi. ABDOMEN: Soft, obese, positive bowel sounds, nontender, no organomegaly. MUSCULOSKELETAL: Decreased range of movement of the right leg because of right hip surgery. 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 Power is 5/5 in all extremities. LAB REVIEW: CBC showed a WBC of 7.6, hemoglobin is 10.7, platelets are 241. BMP showed sodium of 142, potassium 4.6, chloride 108, bicarbonate 28, BUN 33, creatinine is 1.65. It was 1.45 yesterday. Calcium is 8.7. CURRENT INPATIENT MEDICATIONS: The patient's medications were all reviewed by myself. She is getting normal saline at 75 mL an hour, Tylenol p.r.n., Amlodipine 10 mg p.o. daily, Dulcolax suppository p.r.n., Colace 100 mg twice daily, Gabapentin 300 mg p.o. three times daily, Glipizide 5 mg p.o. daily, Insulin Lispro sliding scale, Metoprolol Tartrate 50 mg p.o. q. 8 hourly, Zofran p.r.n., Percocet p.r.n., Protonix 40 mg p.o. daily, Pravastatin 40 mg p.o. daily, Xarelto 10 mg p.o. daily, Senna one tablet p.o. q. h.s. and Zinc Oxide to sacral area. ASSESSMENT AND PLAN: 1. Acute non oliguric renal failure the patient is getting IV fluid hydration, however clinically she looks volume overloaded. I am stopping the IV fluids and starting the patient on diuretics. 2. Lower extremity edema - The patient has significant edema of the lower extremities. She is volume overloaded. I have discussed the Amlodipine dose to 5 mg p.o. daily and started the patient on Lasix 40 mg IV q. 8 hourly. Continue to monitor intake and output and daily weight. Further adjustment of diuretics will be done tomorrow morning. 3. Hypertension - blood pressure is controlled at this time since diuretics are being started and the patient has significant edema. Amlodipine has been decreased to 5 mg p.o. daily. Okay to continue current dose of Metoprolol as well. 4. Diabetes mellitus type 2 - The patient continues to be on Glipizide, Insulin Lispro sliding scale. Glucose levels are acceptable at this time. 5. Right hip fracture, status post open reduction, internal fixation one week ago - The patient is getting physical therapy in the Rehab Unit. Management is as per ARU. MTDD
[2020-11-22 20:00] VITALS: BP 133/65
[2020-11-22 20:11] LABS: APPEARANCE, URINE CLEAR (CLEAR); BACTERIA, URINE AUTO NEGATIVE (NEGATIVE); BILIRUBIN, URINE AUTO NEGATIVE (NEGATIVE); BLOOD, URINE BLOOD NEGATIVE (NEGATIVE); COLOR, URINE COLORLESS (YELLOW); GLUCOSE, URINE (UA) AUTO NEGATIVE (NEGATIVE); KETONE, URINE AUTO NEGATIVE (NEGATIVE); LEUKOCYTE ESTERASE, URINE AUTO NEGATIVE (NEGATIVE); NITRITE, URINE AUTO NEGATIVE (NEGATIVE); PROTEIN, URINE AUTO NEGATIVE (NEGATIVE); RBC, URINE AUTO 0 /HPF (0-3); SPECIFIC GRAVITY URINE AUTO 1.005 (1.002-1.035); SQUAMOUS EPITHELIAL CELL UR AU 0 /HPF (0-6); UROBILINOGEN, URINE AUTO 0.2 mg/dL (0.0-2.0); WBC, URINE AUTO 0 /HPF (0-3)
[2020-11-23] MEDS: METOPROLOL TART 50 MG TAB PO SCH ×3 (05:15→20:30)
[2020-11-23 06:23] VITALS: BP 168/72
[2020-11-23 06:51] LABS: BASO % 0.5 % (0.0-1.0); EOS # 0.2 10^3/uL (0.0-0.5); EOS % 2.6 % (0.0-3.0); HEMATOCRIT 33.9 % (36.0-47.0); HEMOGLOBIN 10.8 g/dl (12.0-15.5); LYMPH # 1.4 10^3/uL (1.5-5.0); LYMPH % 16.5 % (24.0-44.0); MEAN CORPUSCULAR HEMOGLOBIN 29.4 pg (27.0-33.0); MEAN CORPUSCULAR HGB CONC 31.9 g/dl (32.0-36.5); MEAN CORPUSCULAR VOLUME 92.4 fl (80.0-96.0); MONO # 0.7 10^3/uL (0.0-0.8); MONO % 8.8 % (2.0-8.0); PLATELET COUNT, AUTOMATED 284 10^3/uL (150-450); RED BLOOD COUNT 3.67 10^6/uL (4.00-5.40); WHITE BLOOD COUNT 8.4 10^3/uL (4.0-10.0)
[2020-11-23 07:11] LABS: CALCIUM LEVEL 9.1 MG/DL (8.8-10.2); CREATININE FOR GFR 1.68 MG/DL (0.55-1.30); GLOMERULAR FILTRATION RATE 31.5 (>39); POTASSIUM SERUM 4.1 MEQ/L (3.5-5.1)
[2020-11-23] MEDS: HumaLOG INSULIN (NovoLOG) PER UNIT SC SCH ×4 (08:29→20:31)
[2020-11-23] MEDS: ACETAMINOPHEN 500 MG TAB PO SCH ×3 (08:31→20:31)
[2020-11-23] MEDS: DOCUSATE SODIUM 100MG CAPSULE PO SCH ×2 (08:31→20:29)
[2020-11-23] MEDS: glipiZIDE XL 5 MG TABCR PO SCH (08:32)
[2020-11-23] MEDS: GABAPENTIN 300 MG CAP PO SCH ×3 (08:32→20:30)
[2020-11-23] MEDS: PRAVASTATIN 20 MG TAB PO SCH (08:32)
[2020-11-23] MEDS: PANTOPRAZOLE 40MG TAB (PROTONIX) PO SCH (08:33)
[2020-11-23] MEDS: amLODIPine 5 MG TAB PO SCH (08:33)
[2020-11-23] MEDS: REMEDY PHYTOPLEX Z-GUARD PASTE 113GM TUBE (FROM STOREROOM PRODUCT) TOP SCH ×3 (08:33→20:36)
[2020-11-23] MEDS ORDERED: POTASSIUM CHLORIDE 10 MEQ SR TABLET PO ONE (10:55)
[2020-11-23] MEDS: FUROSEMIDE 40MG/4ML VIAL (J1940) IV SCH ×3 (11:54→23:48)
--- NOTE | 2020-11-23 12:20 | IPN ---
NEPHROLOGY PROGRESS NOTE DATE: 11/23/2020 SUBJECTIVE: Patient was seen and examined at the bedside today morning in the rehabilitation unit. She is afebrile, hemodynamically stable. She reports her edema is getting better. Intravenous (IV) fluids were stopped yesterday. She was started on diuretics. She reported polyuria at night because of diuretic. Otherwise, denies any active complaints. OBJECTIVE: VITAL SIGNS: Temperature 96.7 degrees Fahrenheit, blood pressure 168/72, pulse 78, respiratory rate 18, saturating 96% on room air. INTAKE AND OUTPUT: Urine output was not recorded well because she is incontinent. Weight in the bed scale is 92 kg. PHYSICAL EXAMINATION: GENERAL: Patient is awake, alert, oriented times three, obese body habitus, sitting up in the sofa. HEAD AND NECK EXAM: Extraocular muscles intact. Pupils equally round and reactive to light. Mucous membranes are moist. Neck is supple. There is no jugular venous distention (JVD). CARDIOVASCULAR: S1, S2. Regular rate. 3+ edema of the right lower extremity, 2+ edema of the left lower extremity. RESPIRATORY: Chest is clear to auscultation bilaterally. Bilateral equal air entry. ABDOMEN: Soft. Positive bowel sounds. Nontender. No organomegaly MUSCULOSKELETAL: She has a dressing on the right hip from recent surgery. Edema of the bilateral lower extremities, as mentioned above. CENTRAL NERVOUS SYSTEM (STEEL PLATE CAULKER): No focal deficit. Power is 5/5 in all extremities. LABORATORY STUDIES: CBC showed WBC 8.4, hemoglobin 10.8, platelets 294. BMP showed sodium 139, potassium 4.1, chloride 102, bicarbonate 31, BUN 37, creatinine 1.68, it was 1.65 yesterday. CURRENT INPATIENT MEDICATIONS: Patient's medications were all reviewed by myself. She continues to be on Lasix 40 mg IV every 8 hours. I gave her a dose of potassium chloride 20 mEq times one dose. No other significant change in the medications today. ASSESSMENT AND PLAN: 1. Acute nonoliguric renal failure. Patient was volume overloaded yesterday. She was started on diuretics. Creatinine is stable since yesterday. Okay to continue current dose of Lasix. 2. Lower extremity edema. Continue Lasix 40 mg every 8 hours. Calcium channel amol dose was decreased yesterday. Continue to monitor daily intake and output. 3. Hypertension. Continue amlodipine 5 mg daily and current dose of metoprolol. Diuretics would help improved blood pressure as well. 4. Diabetes mellitus type 2. Continue glipizide and insulin. Avoid use of metformin at this time.
[2020-11-23 14:00] VITALS: BP 125/63
[2020-11-23] MEDS: RIVAROXABAN 10 MG TAB (XARELTO) PO SCH (17:28)
[2020-11-23 20:00] VITALS: BP 139/67
[2020-11-23] MEDS: SENNA 8.6 MG TAB (SENOKOT) PO SCH (20:29)
[2020-11-24] MEDS: METOPROLOL TART 50 MG TAB PO SCH ×3 (05:10→20:41)
[2020-11-24 06:16] VITALS: BP 162/70
--- NOTE | 2020-11-24 07:23 | IPNPDOC ---
PM&R Progress Note DATE OF SERVICE: Nov 24, 2020 [employer] Progress Note Subjective: Patient stating her abdominal pain is better and that she feels she needs more time to get stronger. She denies chest pain, difficulty breathing. REVIEW OF SYSTEMS: The following is a completed review of systems and has been reviewed. Review of systems otherwise unremarkable. PAIN: Patient self reports right hip pain EYES: No recent vision changes EARS, NOSE, & THROAT: No throat pain, or dysphagia, or rhinorrhea CARDIOVASCULAR: Denies chest pain or palpitations PULMONARY: Denies shortness of breath GASTROINTESTINAL: Denies constipation/diarrhea GENITOURINARY: denies dysuria MUSCULOSKELETAL: s/p right hip fracture NEUROLOGICAL:denies paresthesia HEMATOLOGICAL: +anemia SKIN: right hip incision PSYCHIATRIC: Unremarkable All other review of systems found to be negative. PHYSICAL EXAMINATION: VITAL SIGNS: Please see below. GENERAL: Pleasant and cooperative. No acute distress. HEENT: PERRL. Extraocular movements intact. Clear conjunctiva CARDIOVASCULAR: Regular rate and rhythm. No murmurs, rubs, or gallops LUNGS: Clear to auscultation bilaterally. No wheezes. No rhonchi ABDOMEN: Soft, nontender, nondistended. Positive bowel sounds. Normal active bowel sounds NEUROLOGICAL: Alert and oriented times three. Cranial nerves II through XII grossly intact. Sensation grossly intact inlcuding 1st web space left foot EXTREMITIES: 5\5 strength bilateral upper extremities.5\5 strength right ankle DF/and EHL (limited due to hip surgery) 5/5 strength in left lower extremity. SKIN: right hip janet-incision with mild edema, no induration/erythema +sacral ulcer LABORATORY DATA: Please see below. ASSESSMENT:75-year-old F with past medical history of HTN who presents status post right hip fracture and ORIF PLAN: 1. REhab- PT/OT advance mobility and ADLs, strengthen/stretch/maintain ROM all 4limbs 2. ORtho s/p right hip ORIF due to femur fracture 11-15-20, WBAT f/u ortho outpatient 3. CArdiac- hx of HTN c/u BP meds -HLD c/u statin 4. Resp- monitor for infection 5. Endo- hx of DM c/u glipizide and ISS, adjust prn 6. Heme- post-op anemia due to blood loss s/p prbc transfusion, monitor while on ARU and consider transfusion if Hgb <8 or symptomatic 7. DVT ppx- TEDs, on xarelto 8. Pain- tylenol, oxycodone, and gabapentin 9. GI ppx- protonix -abdominal pain on Monday resolved after BM, patient reports she thinks it was from eating oatmeal which she thinks makes her gallstone pain flair 10. renal- MUNIRA on CKD getting worse, renal following, patient receiving IV lasix 11. Dispo- TBD Allergies Coded Allergies: No Known Allergies (Unverified , 11/14/20) Vital Signs Vital Signs Date Time Temp Pulse Resp B/P (MAP) Pulse Ox O2 Delivery O2 Flow Rate FiO2 11/24/20 06:16 96.8 64 18 162/70 (100) 97 Room Air Laboratory Data Labs 24H Laboratory Tests 2 11/23/20 11:44: Bedside Glucose (Misc Panel) 136H 11/23/20 17:16: Bedside Glucose (Misc Panel) 128H 11/23/20 19:50: Bedside Glucose (Misc Panel) 179H 11/24/20 05:32: Bedside Glucose (Misc Panel) 125H Current Medications Current Medications Current Medications Medications (Trade) Dose Ordered Sig/Aftab Route PRN Reason Start Time Stop Time Status Last Admin Dose Admin Acetaminophen (Tylenol Tab) 1,000 mg TID PO 11/18/20 16:00 11/23/20 20:31 Amlodipine Besylate (Norvasc) 5 mg DAILY PO 11/19/20 17:25 11/20/20 10:46 DC 11/20/20 08:25 Amlodipine Besylate (Norvasc) 5 mg DAILY PO 11/23/20 09:00 11/23/20 08:33 Amlodipine Besylate (Norvasc) 10 mg DAILY PO 11/21/20 09:00 11/22/20 13:39 DC 11/22/20 07:56 Bisacodyl (Dulcolax Suppository) 10 mg DAILYPRN PRN [place] CONSTIPATION 11/18/20 13:20 Dextrose (Dextrose 50%) 25 ml ASDIRECTED PRN IV SEE LABEL COMMENTS 11/18/20 13:20 Docusate Sodium (Colace) 100 mg BID PO 11/18/20 21:00 11/23/20 20:29 Furosemide (LASIX injection) 40 mg Q8H IV 11/22/20 16:00 11/23/20 23:48 Gabapentin (Neurontin) 300 mg TID PO 11/18/20 16:00 11/23/20 20:30 Glipizide (Glucotrol Xl) 5 mg DAILY@0730 PO 11/19/20 07:30 11/20/20 12:31 DC 11/20/20 08:24 Glipizide (Glucotrol Xl) 5 mg DAILY@0730 PO 11/21/20 07:30 11/23/20 08:32 Glucagon (Glucagon) 1 mg ASDIRECTED PRN SC SEE LABEL COMMENTS 11/18/20 13:20 Glucose (Glucose) 16 GM ASDIRECTED PRN PO SEE LABEL COMMENTS 11/18/20 13:20 Home Med (Med Rec Complete!) ASDIRECTED XX 11/18/20 14:05 11/18/20 14:28 DC Insulin Human Lispro (HumaLOG INSULIN) SEE PROTOCOL TABLE AC SC 11/18/20 17:30 11/23/20 17:29 Insulin Human Lispro (HumaLOG INSULIN) SEE PROTOCOL TABLE QHS SC 11/18/20 21:00 Metoprolol Tartrate (Lopressor) 25 mg BID PO 11/19/20 10:50 11/20/20 10:45 DC 11/20/20 08:24 Metoprolol Tartrate (Lopressor) 50 mg Q8H PO 11/20/20 14:00 11/24/20 05:10 Ondansetron HCl (Zofran Odt) 4 mg Q6HP PRN PO NAUSEA OR VOMITING 11/18/20 13:20 11/21/20 09:25 Oxycodone/ Acetaminophen (Percocet 5mg/ 325mg Tablet) 1 tab Q6HP PRN PO PAIN LEVEL 6-10 11/18/20 15:15 Pantoprazole Sodium (Protonix) 40 mg DAILY PO 11/19/20 09:00 11/23/20 08:33 Pravastatin Sodium (Pravachol) 40 mg QAM PO 11/19/20 09:00 11/23/20 08:32 Ramipril (Altace) 5 mg DAILY PO 11/19/20 09:00 11/20/20 10:45 DC 11/20/20 08:23 Rivaroxaban (Xarelto) 10 mg DAILY@18 PO 11/19/20 18:00 11/23/20 17:28 Caitlyn (Senokot) 1 tab [facility] PO 11/18/20 21:00 11/23/20 20:29 IHSAN CHRISTOPHER MD Nov 24, 2020 07:23
[2020-11-24] MEDS: PANTOPRAZOLE 40MG TAB (PROTONIX) PO SCH (08:17)
[2020-11-24] MEDS: PRAVASTATIN 20 MG TAB PO SCH (08:17)
[2020-11-24] MEDS: ACETAMINOPHEN 500 MG TAB PO SCH ×3 (08:17→20:39)
[2020-11-24] MEDS: HumaLOG INSULIN (NovoLOG) PER UNIT SC SCH ×4 (08:17→20:49)
[2020-11-24] MEDS: amLODIPine 5 MG TAB PO SCH (08:18)
[2020-11-24] MEDS: glipiZIDE XL 5 MG TABCR PO SCH (08:18)
[2020-11-24] MEDS: DOCUSATE SODIUM 100MG CAPSULE PO SCH ×2 (08:18→20:38)
[2020-11-24] MEDS: FUROSEMIDE 40MG/4ML VIAL (J1940) IV SCH ×3 (08:18→23:37)
[2020-11-24] MEDS: GABAPENTIN 300 MG CAP PO SCH ×3 (08:18→20:38)
[2020-11-24] MEDS: REMEDY PHYTOPLEX Z-GUARD PASTE 113GM TUBE (FROM STOREROOM PRODUCT) TOP SCH ×3 (08:19→20:39)
[2020-11-24 09:50] LABS: ALBUMIN 3.3 GM/DL (3.2-5.2); CALCIUM LEVEL 9.3 MG/DL (8.8-10.2); CREATININE FOR GFR 1.86 MG/DL (0.55-1.30); PHOSPHORUS LEVEL 4.5 MG/DL (2.5-4.9); POTASSIUM SERUM 4.4 MEQ/L (3.5-5.1)
--- NOTE | 2020-11-24 09:51 | IPN ---
NEPHROLOGY PROGRESS NOTE DATE: 11/24/2020 SUBJECTIVE: Patient was seen and examined at the bedside today morning. She was actually sitting up in the sofa. She continues to be on I.V. Lasix. She reports that her leg edema is gradually getting better and she is able to do more physical therapy. OBJECTIVE: VITAL SIGNS: Temperature 96.8 degrees Fahrenheit, blood pressure 162/70, pulse 64, respiratory rate 18, saturating 97% on room air. INTAKE/OUTPUT: Urine output is not recorded. She has incontinent voids. Weight in the bed scale is 90.5 kg, which is 1-1/2 kg less than her weight yesterday. PHYSICAL EXAMINATION: GENERAL: Patient is awake, alert, oriented x3, sitting up in the chair, obese body habitus. HEAD/NECK: Extraocular muscles intact. Pupils equally round and reactive to light. Mucous membranes are moist. Neck is supple. There is no JVD. CVS: S1, S2, regular rate. 3+ edema of the right lower extremity starting from ankle all the way up to her right thigh. 2+ edema of the left leg only. RESPIRATORY: Chest is clear to auscultation bilaterally. Bilateral equal air entry. No rales or rhonchi. ABDOMEN: Soft, positive bowel sounds, nontender. No organomegaly. MUSCULOSKELETAL: Right hip fracture surgical scar is noted. Edema of the lower extremities as mentioned above. RACING SECRETARY AND HANDICAPPER: No focal deficit. Power is 5/5 in all extremities. LABORATORY REVIEW: Latest CBC is from yesterday with a hemoglobin of 10.8. Latest BMP is still pending at this time. CURRENT INPATIENT MEDICATIONS: Patient's medications were all reviewed by myself. She continues to be on Lasix 40 mg I.V. every 8 hours. No other significant change in the medications today as compared with yesterday. ASSESSMENT AND PLAN: 1. Acute renal failure: Patient has nonoliguric renal failure, she was fluid overloaded. She is being diuresed. Latest renal profile is pending. Okay to continue diuretics at this time. 2. Lower extremity edema: Continue Lasix 40 mg every 8 hours. Continue to monitor daily weight. Dose to be adjusted after today's renal profile comes back. 3. Hypertension: Continue Metoprolol and Amlodipine. If renal function gets better, I would probably switch her from Amlodipine to angiotensin receptor amol. 4. Diabetes mellitus type 2: Okay to continue insulin sliding scale and Glipizide. Avoid use of Metformin.
[2020-11-24 14:00] VITALS: BP 115/59
[2020-11-24] MEDS: RIVAROXABAN 10 MG TAB (XARELTO) PO SCH (17:04)
[2020-11-24] MEDS: SENNA 8.6 MG TAB (SENOKOT) PO SCH (20:38)
[2020-11-24 21:31] VITALS: BP 138/66
[2020-11-25] MEDS: METOPROLOL TART 50 MG TAB PO SCH ×3 (05:25→21:13)
[2020-11-25 06:07] VITALS: BP 127/62
[2020-11-25] MEDS: DOCUSATE SODIUM 100MG CAPSULE PO SCH ×3 (07:57→21:12)
[2020-11-25] MEDS: PRAVASTATIN 20 MG TAB PO SCH (07:57)
[2020-11-25] MEDS: amLODIPine 5 MG TAB PO SCH (07:57)
[2020-11-25] MEDS: PANTOPRAZOLE 40MG TAB (PROTONIX) PO SCH (07:57)
[2020-11-25] MEDS: TORSEMIDE 20 MG TAB PO SCH ×2 (07:57→17:13)
[2020-11-25] MEDS: ACETAMINOPHEN 500 MG TAB PO SCH ×3 (07:57→21:12)
[2020-11-25] MEDS: glipiZIDE XL 5 MG TABCR PO SCH (07:58)
[2020-11-25] MEDS: GABAPENTIN 300 MG CAP PO SCH ×3 (07:58→21:12)
[2020-11-25] MEDS: HumaLOG INSULIN (NovoLOG) PER UNIT SC SCH ×4 (07:58→21:00)
[2020-11-25] MEDS: REMEDY PHYTOPLEX Z-GUARD PASTE 113GM TUBE (FROM STOREROOM PRODUCT) TOP SCH ×3 (07:59→21:00)
--- NOTE | 2020-11-25 09:44 | IPNPDOC ---
PM&R Progress Note DATE OF SERVICE: Nov 25, 2020 [employer] Progress Note Subjective: Patient reporting she is moving better in therapy today and thinks a discharge to home late next week is feasible. She understands she will need to be independent with a RW prior to discharge. She thinks she is getting constipated. REVIEW OF SYSTEMS: The following is a completed review of systems and has been reviewed. Review of systems otherwise unremarkable. PAIN: Patient self reports right hip pain EYES: No recent vision changes EARS, NOSE, & THROAT: No throat pain, or dysphagia, or rhinorrhea CARDIOVASCULAR: Denies chest pain or palpitations PULMONARY: Denies shortness of breath GASTROINTESTINAL: +constipation GENITOURINARY: denies dysuria MUSCULOSKELETAL: s/p right hip fracture NEUROLOGICAL:denies paresthesia HEMATOLOGICAL: +anemia SKIN: right hip incision PSYCHIATRIC: Unremarkable All other review of systems found to be negative. PHYSICAL EXAMINATION: VITAL SIGNS: Please see below. GENERAL: Pleasant and cooperative. No acute distress. HEENT: PERRL. Extraocular movements intact. Clear conjunctiva CARDIOVASCULAR: Regular rate and rhythm. No murmurs, rubs, or gallops LUNGS: Clear to auscultation bilaterally. No wheezes. No rhonchi ABDOMEN: Soft, nontender, nondistended. Positive bowel sounds. Normal active bowel sounds NEUROLOGICAL: Alert and oriented times three. Cranial nerves II through XII grossly intact. Sensation grossly intact inlcuding 1st web space left foot EXTREMITIES: 5\5 strength bilateral upper extremities.5\5 strength right ankle DF/and EHL (limited due to hip surgery) 5/5 strength in left lower extremity. Bilat LE edema (improving) SKIN: right hip janet-incision with mild edema, no induration/erythema +sacral ulcer LABORATORY DATA: Please see below. ASSESSMENT:75-year-old F with past medical history of HTN who presents status post right hip fracture and ORIF PLAN: 1. REhab- PT/OT advance mobility and ADLs, strengthen/stretch/maintain ROM all 4limbs, ambulating with RW 2. ORtho s/p right hip ORIF due to femur fracture 11-15-20, WBAT f/u ortho outpatient 3. CArdiac- hx of HTN c/u BP meds -HLD c/u statin 4. Resp- monitor for infection 5. Endo- hx of DM c/u glipizide and ISS, adjust prn 6. Heme- post-op anemia due to blood loss s/p prbc transfusion, monitor while on ARU and consider transfusion if Hgb <8 or symptomatic 7. DVT ppx- TEDs, on xarelto 8. Pain- tylenol, oxycodone, and gabapentin 9. GI ppx- protonix -abdominal pain on Monday resolved after BM, patient reports she thinks it was from eating oatmeal which she thinks makes her gallstone pain flair 10. renal- MUNIRA on CKD getting worse, renal following, s/p course of IV lasix, c/u now on torsemide- recs appreciated, f/u renal on d/c 11. Dispo- TBD Allergies Coded Allergies: No Known Allergies (Unverified , 11/14/20) Vital Signs Vital Signs Date Time Temp Pulse Resp B/P (MAP) Pulse Ox O2 Delivery O2 Flow Rate FiO2 11/25/20 07:57 69 127/62 11/25/20 06:07 96.9 18 94 Room Air Laboratory Data Labs 24H Laboratory Tests 2 11/24/20 11:34: Bedside Glucose (Misc Panel) 184H 11/24/20 16:22: Bedside Glucose (Misc Panel) 164H 11/24/20 20:46: Bedside Glucose (Misc Panel) 168H 11/25/20 05:30: Bedside Glucose (Misc Panel) 124H Current Medications Current Medications Current Medications Medications (Trade) Dose Ordered Sig/Aftab Route PRN Reason Start Time Stop Time Status Last Admin Dose Admin Acetaminophen (Tylenol Tab) 1,000 mg TID PO 11/18/20 16:00 11/25/20 07:57 Amlodipine Besylate (Norvasc) 5 mg DAILY PO 11/19/20 17:25 11/20/20 10:46 DC 11/20/20 08:25 Amlodipine Besylate (Norvasc) 5 mg DAILY PO 11/23/20 09:00 11/25/20 07:57 Amlodipine Besylate (Norvasc) 10 mg DAILY PO 11/21/20 09:00 11/22/20 13:39 DC 11/22/20 07:56 Bisacodyl (Dulcolax Suppository) 10 mg DAILYPRN PRN [place] CONSTIPATION 11/18/20 13:20 Dextrose (Dextrose 50%) 25 ml ASDIRECTED PRN IV SEE LABEL COMMENTS 11/18/20 13:20 Docusate Sodium (Colace) 100 mg BID PO 11/18/20 21:00 11/25/20 07:57 Furosemide (LASIX injection) 40 mg Q8H IV 11/22/20 16:00 11/25/20 06:31 DC 11/24/20 23:37 Gabapentin (Neurontin) 300 mg TID PO 11/18/20 16:00 11/25/20 07:58 Glipizide (Glucotrol Xl) 5 mg DAILY@0730 PO 11/19/20 07:30 11/20/20 12:31 DC 11/20/20 08:24 Glipizide (Glucotrol Xl) 5 mg DAILY@0730 PO 11/21/20 07:30 11/25/20 07:58 Glucagon (Glucagon) 1 mg ASDIRECTED PRN SC SEE LABEL COMMENTS 11/18/20 13:20 Glucose (Glucose) 16 GM ASDIRECTED PRN PO SEE LABEL COMMENTS 11/18/20 13:20 Home Med (Med Rec Complete!) ASDIRECTED XX 11/18/20 14:05 11/18/20 14:28 DC Insulin Human Lispro (HumaLOG INSULIN) SEE PROTOCOL TABLE AC SC 11/18/20 17:30 11/25/20 07:58 Insulin Human Lispro (HumaLOG INSULIN) SEE PROTOCOL TABLE QHS MN 11/18/20 21:00 Metoprolol Tartrate (Lopressor) 25 mg BID PO 11/19/20 10:50 11/20/20 10:45 DC 11/20/20 08:24 Metoprolol Tartrate (Lopressor) 50 mg Q8H PO 11/20/20 14:00 11/25/20 05:25 Ondansetron HCl (Zofran Odt) 4 mg Q6HP PRN PO NAUSEA OR VOMITING 11/18/20 13:20 11/21/20 09:25 Oxycodone/ Acetaminophen (Percocet 5mg/ 325mg Tablet) 1 tab Q6HP PRN PO PAIN LEVEL 6-10 11/18/20 15:15 Pantoprazole Sodium (Protonix) 40 mg DAILY PO 11/19/20 09:00 11/25/20 07:57 Pravastatin Sodium (Pravachol) 40 mg QAM PO 11/19/20 09:00 11/25/20 07:57 Ramipril (Altace) 5 mg DAILY PO 11/19/20 09:00 11/20/20 10:45 DC 11/20/20 08:23 Rivaroxaban (Xarelto) 10 mg DAILY@18 PO 11/19/20 18:00 11/24/20 17:04 Senna (Senokot) 1 tab QHS PO 11/18/20 21:00 11/24/20 20:38 Torsemide (Demadex) 20 mg BID@ PO 11/25/20 09:00 11/25/20 07:57 IHSAN CHRISTOPHER MD Nov 25, 2020 09:44
[2020-11-25] MEDS: MIRALAX *UNIT DOSE* 17GM PACKET PO SCH (12:09)
--- NOTE | 2020-11-25 12:46 | IPN ---
NEPHROLOGY PROGRESS NOTE DATE: 11/25/2020 SUBJECTIVE: Patient was seen and examined at the bedside today morning. She is afebrile, hemodynamically stable. She reports that her edema is getting better. She continues to be on intravenous (IV) Lasix at this time. The latest creatinine is from yesterday, that is 1.8, which is worse than her previous labs. OBJECTIVE: VITAL SIGNS: Temperature 96.9 degrees Fahrenheit, blood pressure 127/62, pulse 69, respiratory rate 18, saturating 94% on room air. INTAKE AND OUTPUT: Urine output is not recorded because she has incontinent voids. Weight in the bed scale is 90.2 kg, which is almost stable since yesterday. PHYSICAL EXAMINATION: GENERAL: Patient is awake, alert, oriented times three, sitting up in the bed, no apparent distress. HEAD AND NECK EXAM: Extraocular muscles intact. Pupils equally round and reactive to light. Mucous membranes are moist. Neck is supple. There is no jugular venous distention (JVD). CARDIOVASCULAR: S1, S2. Regular rate. 2+ edema of the right lower extremity and 1+ edema of the left lower extremity. RESPIRATORY: Chest is clear to auscultation bilaterally. Bilateral equal air entry. No rales or rhonchi. ABDOMEN: Soft. Positive bowel sounds. Nontender. No organomegaly MUSCULOSKELETAL: Patient has dressing on the right hip surgical site. Edema of the lower extremities is getting better, as mentioned above. CENTRAL NERVOUS SYSTEM (FIRE INVESTIGATOR): No focal deficit. Power is 5/5 in all extremities. LABORATORY STUDIES: BMP done yesterday showed a creatinine of 1.86. CURRENT INPATIENT MEDICATIONS: Patient's medications were all reviewed by myself. She is getting Lasix 40 mg every 8 hours, which I have stopped now and I have started the patient on torsemide 20 mg by mouth twice a day. No other significant change in the medications. ASSESSMENT AND PLAN: 1. Acute renal failure superimposed on chronic kidney disease. Patient was aggressively being diuresed. Creatinine was high yesterday. IV diuretics are being stopped and being switched to oral diuretics, as mentioned above. 2. Lower extremity edema. Edema is getting better. Started torsemide 20 mg by mouth today morning. Further dose adjustment will be done according to patient's renal function on tomorrow's labs. 3. Hypertension. Blood pressure is better controlled with metoprolol and amlodipine and, if her blood pressure allows, I will decrease amlodipine dose further, because that can contribute to lower extremity edema as well. 4. Diabetes mellitus type 2. Continue insulin sliding scale and glipizide. Avoid use of metformin. She is not a candidate for angiotensin converting enzyme (PARAG) inhibitors at this time because of acute renal failure.
[2020-11-25 14:18] VITALS: BP 123/60
[2020-11-25] MEDS: RIVAROXABAN 10 MG TAB (XARELTO) PO SCH (17:12)
[2020-11-25] MEDS: SENNA 8.6 MG TAB (SENOKOT) PO SCH (21:12)
[2020-11-25 22:00] VITALS: BP 127/60
[2020-11-26 06:00] VITALS: BP 125/60
[2020-11-26] MEDS: METOPROLOL TART 50 MG TAB PO SCH ×3 (06:26→21:25)
[2020-11-26 08:12] LABS: ALBUMIN 3.5 GM/DL (3.2-5.2); CALCIUM LEVEL 9.2 MG/DL (8.8-10.2); CREATININE FOR GFR 1.87 MG/DL (0.55-1.30); GLOMERULAR FILTRATION RATE 27.8 (>39); PHOSPHORUS LEVEL 3.9 MG/DL (2.5-4.9); POTASSIUM SERUM 3.6 MEQ/L (3.5-5.1)
[2020-11-26] MEDS: PANTOPRAZOLE 40MG TAB (PROTONIX) PO SCH (08:17)
[2020-11-26] MEDS: MIRALAX *UNIT DOSE* 17GM PACKET PO SCH (08:17)
[2020-11-26] MEDS: GABAPENTIN 300 MG CAP PO SCH ×3 (08:17→20:20)
[2020-11-26] MEDS: glipiZIDE XL 5 MG TABCR PO SCH (08:18)
[2020-11-26] MEDS: DOCUSATE SODIUM 100MG CAPSULE PO SCH ×3 (08:18→20:20)
[2020-11-26] MEDS: HumaLOG INSULIN (NovoLOG) PER UNIT SC SCH ×4 (08:18→20:20)
[2020-11-26] MEDS: PRAVASTATIN 20 MG TAB PO SCH (08:19)
[2020-11-26] MEDS: amLODIPine 5 MG TAB PO SCH (08:19)
[2020-11-26] MEDS: TORSEMIDE 20 MG TAB PO SCH (08:19)
[2020-11-26] MEDS: ACETAMINOPHEN 500 MG TAB PO SCH ×3 (08:20→20:20)
[2020-11-26] MEDS: REMEDY PHYTOPLEX Z-GUARD PASTE 113GM TUBE (FROM STOREROOM PRODUCT) TOP SCH ×3 (08:21→20:21)
--- NOTE | 2020-11-26 08:36 | IPNPDOC ---
PM&R Progress Note DATE OF SERVICE: Nov 26, 2020 Screw Down Progress Note Subjective: Patient stating she thinks she is moving slowly overall and was encouraged to tr to become more independent in therapy for a safer discharge. REVIEW OF SYSTEMS: The following is a completed review of systems and has been reviewed. Review of systems otherwise unremarkable. PAIN: Patient self reports right hip pain EYES: No recent vision changes EARS, NOSE, & THROAT: No throat pain, or dysphagia, or rhinorrhea CARDIOVASCULAR: Denies chest pain or palpitations PULMONARY: Denies shortness of breath GASTROINTESTINAL: +constipation (improved) GENITOURINARY: denies dysuria MUSCULOSKELETAL: s/p right hip fracture NEUROLOGICAL:denies paresthesia HEMATOLOGICAL: +anemia SKIN: right hip incision PSYCHIATRIC: Unremarkable All other review of systems found to be negative. PHYSICAL EXAMINATION: VITAL SIGNS: Please see below. GENERAL: Pleasant and cooperative. No acute distress. HEENT: PERRL. Extraocular movements intact. Clear conjunctiva CARDIOVASCULAR: Regular rate and rhythm. No murmurs, rubs, or gallops LUNGS: Clear to auscultation bilaterally. No wheezes. No rhonchi ABDOMEN: Soft, nontender, nondistended. Positive bowel sounds. Normal active bowel sounds NEUROLOGICAL: Alert and oriented times three. Cranial nerves II through XII grossly intact. Sensation grossly intact inlcuding 1st web space left foot EXTREMITIES: 5\5 strength bilateral upper extremities.5\5 strength right ankle DF/and EHL (limited due to hip surgery) 5/5 strength in left lower extremity. Bilat LE edema (improving) SKIN: right hip janet-incision with mild edema, no induration/erythema +sacral ulcer LABORATORY DATA: Please see below. ASSESSMENT:75-year-old F with past medical history of HTN who presents status post right hip fracture and ORIF PLAN: 1. REhab- PT/OT advance mobility and ADLs, strengthen/stretch/maintain ROM all 4limbs, ambulating with RW 2. ORtho s/p right hip ORIF due to femur fracture 11-15-20, WBAT f/u ortho outpatient 3. CArdiac- hx of HTN c/u BP meds -HLD c/u statin 4. Resp- monitor for infection 5. Endo- hx of DM c/u glipizide and ISS, adjust prn 6. Heme- post-op anemia due to blood loss s/p prbc transfusion, monitor while on ARU and consider transfusion if Hgb <8 or symptomatic 7. DVT ppx- TEDs, on xarelto 8. Pain- tylenol, oxycodone, and gabapentin 9. GI ppx- protonix -no further complaints of abdominal pain 10. renal- MUNIRA on CKD getting worse, renal following, s/p course of IV lasix, c/u now on torsemide- recs appreciated, f/u renal on d/c 11. Dispo- TBD Allergies Coded Allergies: No Known Allergies (Unverified , 11/14/20) Vital Signs Vital Signs Date Time Temp Pulse Resp B/P (MAP) Pulse Ox O2 Delivery O2 Flow Rate FiO2 11/26/20 08:19 63 145/67 11/26/20 06:00 97.2 18 93 Room Air Laboratory Data CBC/BMP Laboratory Tests 11/26/20 07:31 Labs 24H Laboratory Tests 2 11/25/20 12:02: Bedside Glucose (Misc Panel) 149H 11/25/20 16:53: Bedside Glucose (Misc Panel) 131H 11/25/20 21:04: Bedside Glucose (Misc Panel) 206H 11/26/20 06:25: Bedside Glucose (Misc Panel) 122H 11/26/20 07:31: Anion Gap 4L, Glomerular Filtration Rate 27.8L, Calcium Level 9.2, Phosphorus Level 3.9, Albumin 3.5 Current Medications Current Medications Current Medications Medications (Trade) Dose Ordered Sig/Aftab Route PRN Reason Start Time Stop Time Status Last Admin Dose Admin Acetaminophen (Tylenol Tab) 1,000 mg TID PO 11/18/20 16:00 11/26/20 08:20 Amlodipine Besylate (Norvasc) 5 mg DAILY PO 11/19/20 17:25 11/20/20 10:46 DC 11/20/20 08:25 Amlodipine Besylate (Norvasc) 5 mg DAILY PO 11/23/20 09:00 11/26/20 08:19 Amlodipine Besylate (Norvasc) 10 mg DAILY PO 11/21/20 09:00 11/22/20 13:39 DC 11/22/20 07:56 Bisacodyl (Dulcolax Suppository) 10 mg DAILYPRN PRN [place] CONSTIPATION 11/18/20 13:20 Dextrose (Dextrose 50%) 25 ml ASDIRECTED PRN IV SEE LABEL COMMENTS 11/18/20 13:20 Docusate Sodium (Colace) 100 mg BID PO 11/18/20 21:00 11/25/20 11:27 DC 11/25/20 07:57 Docusate Sodium (Colace) 100 mg TID PO 11/25/20 16:00 11/26/20 08:18 Furosemide (LASIX injection) 40 mg Q8H IV 11/22/20 16:00 11/25/20 06:31 DC 11/24/20 23:37 Gabapentin (Neurontin) 300 mg TID PO 11/18/20 16:00 11/26/20 08:17 Glipizide (Glucotrol Xl) 5 mg DAILY@0730 PO 11/19/20 07:30 11/20/20 12:31 DC 11/20/20 08:24 Glipizide (Glucotrol Xl) 5 mg DAILY@0730 PO 11/21/20 07:30 11/26/20 08:18 Glucagon (Glucagon) 1 mg ASDIRECTED PRN SC SEE LABEL COMMENTS 11/18/20 13:20 Glucose (Glucose) 16 GM ASDIRECTED PRN PO SEE LABEL COMMENTS 11/18/20 13:20 Home Med (Med Rec Complete!) ASDIRECTED XX 11/18/20 14:05 11/18/20 14:28 DC Insulin Human Lispro (HumaLOG INSULIN) SEE PROTOCOL TABLE AC SC 11/18/20 17:30 11/26/20 08:18 Insulin Human Lispro (HumaLOG INSULIN) SEE PROTOCOL TABLE QHS SC 11/18/20 21:00 Metoprolol Tartrate (Lopressor) 25 mg BID PO 11/19/20 10:50 11/20/20 10:45 DC 11/20/20 08:24 Metoprolol Tartrate (Lopressor) 50 mg Q8H PO 11/20/20 14:00 11/26/20 06:26 Ondansetron HCl (Zofran Odt) 4 mg Q6HP PRN PO NAUSEA OR VOMITING 11/18/20 13:20 11/21/20 09:25 Oxycodone/ Acetaminophen (Percocet 5mg/ 325mg Tablet) 1 tab Q6HP PRN PO PAIN LEVEL 6-10 11/18/20 15:15 Pantoprazole Sodium (Protonix) 40 mg DAILY PO 11/19/20 09:00 11/26/20 08:17 Polyethylene Glycol (Miralax) 1 pkt DAILY PO 11/25/20 11:25 11/26/20 08:17 Pravastatin Sodium (Pravachol) 40 mg QAM PO 11/19/20 09:00 11/26/20 08:19 Ramipril (Altace) 5 mg DAILY PO 11/19/20 09:00 11/20/20 10:45 DC 11/20/20 08:23 Rivaroxaban (Xarelto) 10 mg DAILY@18 PO 11/19/20 18:00 11/25/20 17:12 Senna (Senokot) 1 tab QHS PO 11/18/20 21:00 11/25/20 21:12 Torsemide (Demadex) 20 mg BID@09,17 PO 11/25/20 09:00 11/26/20 08:19 IHSAN CHRISTOPHER MD Nov 26, 2020 08:36
[2020-11-26] MEDS ORDERED: POTASSIUM CHLORIDE 10 MEQ SR TABLET PO ONE (10:00)
--- NOTE | 2020-11-26 12:18 | IPN ---
NEPHROLOGY PROGRESS NOTE DATE: 11/26/2020 SUBJECTIVE: Patient was seen and examined at the bedside today morning. She is afebrile, hemodynamically stable. She reports that she is wearing stockings on the lower extremities now. Edema is slowly getting better. She is slowly getting more strength. Right hip pain is getting better and she is able to walk without the wheelchair now. OBJECTIVE: VITAL SIGNS: Temperature 97.2 degrees Fahrenheit, blood pressure 145/67, pulse 63, respiratory rate 18, saturating 93% on room air. INTAKE AND OUTPUT: Urine output is not recorded very well, as she has incontinent voids. Weight in the bed scale was 90.2 kg yesterday. PHYSICAL EXAMINATION: GENERAL: Patient is awake, alert, oriented times three, sitting up in the bed, no apparent distress. HEAD AND NECK EXAM: Extraocular muscles intact. Pupils equally round and reactive to light. Mucous membranes are moist. Neck is supple. There is no jugular venous distention (JVD). CARDIOVASCULAR: S1, S2. Regular rate. 1+ edema of the bilateral lower extremities. She is wearing compression stockings. RESPIRATORY: Chest is clear to auscultation bilaterally. Bilateral equal air entry. No rales or rhonchi. ABDOMEN: Soft. Positive bowel sounds. Nontender. No organomegaly MUSCULOSKELETAL: She has 1+ edema of the bilateral lower extremities, right is slightly worse than left and right hip surgical scar is healing well. CENTRAL NERVOUS SYSTEM (GRAIN WAFER MACHINE OPERATOR): No focal deficit. Power is 5/5 in all extremities. LABORATORY STUDIES: CBC is from three days ago, with a hemoglobin of 10.8. BMP done today morning showed sodium 136, potassium 3.6, chloride 99, bicarbonate 33, BUN 50, creatinine 1.87, it was 1.86 yesterday. CURRENT INPATIENT MEDICATIONS: Patient's medications were all reviewed by myself. She is on torsemide 20 mg by mouth twice a day. I have decreased the dose to 20 mg by mouth daily. I have her a dose of potassium chloride 40 mEq times one dose. No other significant change in the medications. ASSESSMENT AND PLAN: 1. Acute renal failure superimposed on chronic kidney disease. Patient's creatinine has plateaued now at 1.8. I am going to increase the diuretic dose. Continue to monitor daily weight. 2. Lower extremity edema. Torsemide is being decreased to 20 mg by mouth daily because patient is getting alkalosis now. 3. Metabolic alkalosis. Most likely secondary to aggressive diuresis. As mentioned above, diuretic dose has been decreased. 4. Hypertension. Blood pressure is controlled with current dose of diuretic and low dose amlodipine. 5. Diabetes mellitus type 2. Continue insulin sliding scale and glipizide. Avoid angiotensin converting enzyme (PARAG) and angiotensin receptor amol (ARB) at this time.
[2020-11-26 14:04] VITALS: BP 146/65
[2020-11-26] MEDS: RIVAROXABAN 10 MG TAB (XARELTO) PO SCH (18:19)
[2020-11-26 20:00] VITALS: BP 135/62
[2020-11-26] MEDS: SENNA 8.6 MG TAB (SENOKOT) PO SCH (20:20)
[2020-11-27] MEDS: METOPROLOL TART 50 MG TAB PO SCH ×3 (05:41→21:15)
[2020-11-27 06:00] VITALS: BP 142/67
[2020-11-27] MEDS: HumaLOG INSULIN (NovoLOG) PER UNIT SC SCH ×4 (07:30→21:00)
[2020-11-27] MEDS ORDERED: glipiZIDE XL 5 MG TABCR PO SCH (07:30)
[2020-11-27] MEDS ORDERED: glipiZIDE (GLUCOTROL) 5 MG TAB PO SCH (07:30)
[2020-11-27] MEDS: DOCUSATE SODIUM 100MG CAPSULE PO SCH ×3 (07:39→21:15)
[2020-11-27] MEDS: PRAVASTATIN 20 MG TAB PO SCH (07:39)
[2020-11-27] MEDS: amLODIPine 5 MG TAB PO SCH (07:39)
[2020-11-27] MEDS: ACETAMINOPHEN 500 MG TAB PO SCH ×3 (07:39→21:00)
[2020-11-27] MEDS: PANTOPRAZOLE 40MG TAB (PROTONIX) PO SCH (07:39)
[2020-11-27] MEDS: REMEDY PHYTOPLEX Z-GUARD PASTE 113GM TUBE (FROM STOREROOM PRODUCT) TOP SCH ×3 (07:40→21:00)
[2020-11-27] MEDS: GABAPENTIN 300 MG CAP PO SCH ×3 (07:40→21:15)
[2020-11-27] MEDS: MIRALAX *UNIT DOSE* 17GM PACKET PO SCH (07:40)
[2020-11-27 07:44] LABS: BASO # 0.1 10^3/uL (0.0-0.2); BASO % 0.8 % (0.0-1.0); EOS # 0.2 10^3/uL (0.0-0.5); EOS % 2.7 % (0.0-3.0); HEMATOCRIT 30.8 % (36.0-47.0); HEMOGLOBIN 9.9 g/dl (12.0-15.5); LYMPH # 1.5 10^3/uL (1.5-5.0); LYMPH % 24.5 % (24.0-44.0); MEAN CORPUSCULAR HEMOGLOBIN 29.7 pg (27.0-33.0); MEAN CORPUSCULAR HGB CONC 32.1 g/dl (32.0-36.5); MEAN CORPUSCULAR VOLUME 92.5 fl (80.0-96.0); MONO # 0.5 10^3/uL (0.0-0.8); MONO % 9.1 % (2.0-8.0); NEUTROPHILS # 3.7 10^3/uL (1.5-8.5); NEUTROPHILS % 62.4 % (36.0-66.0); PLATELET COUNT, AUTOMATED 287 10^3/uL (150-450); RED BLOOD COUNT 3.33 10^6/uL (4.00-5.40)
[2020-11-27] MEDS: TORSEMIDE 20 MG TAB PO SCH (07:45)
[2020-11-27 08:12] LABS: CREATININE FOR GFR 1.92 MG/DL (0.55-1.30); POTASSIUM SERUM 4.3 MEQ/L (3.5-5.1)
--- NOTE | 2020-11-27 09:22 | IPNPDOC ---
PM&R Progress Note DATE OF SERVICE: Nov 27, 2020 Maritime Engineer Progress Note Subjective: Discuss with patient that she was noted to be shuffling when she walked in therapy and if she would consider a trial of Sinemet for possible Parkinson's features. She was apprehensive about side effects, especially hallucinations and requested to have the weekend to think about it. REVIEW OF SYSTEMS: The following is a completed review of systems and has been reviewed. Review of systems otherwise unremarkable. PAIN: Patient self reports right hip pain EYES: No recent vision changes EARS, NOSE, & THROAT: No throat pain, or dysphagia, or rhinorrhea CARDIOVASCULAR: Denies chest pain or palpitations PULMONARY: Denies shortness of breath GASTROINTESTINAL: +constipation (improved) GENITOURINARY: denies dysuria MUSCULOSKELETAL: s/p right hip fracture NEUROLOGICAL:denies paresthesia HEMATOLOGICAL: +anemia SKIN: right hip incision PSYCHIATRIC: Unremarkable All other review of systems found to be negative. PHYSICAL EXAMINATION: VITAL SIGNS: Please see below. GENERAL: Pleasant and cooperative. No acute distress. HEENT: PERRL. Extraocular movements intact. Clear conjunctiva CARDIOVASCULAR: Regular rate and rhythm. No murmurs, rubs, or gallops LUNGS: Clear to auscultation bilaterally. No wheezes. No rhonchi ABDOMEN: Soft, nontender, nondistended. Positive bowel sounds. Normal active bowel sounds NEUROLOGICAL: Alert and oriented times three. Cranial nerves II through XII grossly intact. Sensation grossly intact including 1st web space left foot EXTREMITIES: 5\5 strength bilateral upper extremities.5\5 strength right ankle DF/and EHL (limited due to hip surgery) 5/5 strength in left lower extremity. Bilat LE edema (improving) SKIN: right hip janet-incision with mild edema, no induration/erythema +sacral ulcer LABORATORY DATA: Please see below. ASSESSMENT:75-year-old F with past medical history of HTN who presents status post right hip fracture and ORIF PLAN: 1. REhab- PT/OT advance mobility and ADLs, strengthen/stretch/maintain ROM all 4limbs, ambulating with RW 2. Neuro- possible parkinsonism? patient noted in therapy to have shuffled gait and on exam she has a slightly masked faces, discussed dopaminergic intervention with patient and son, will hold off on starting as patient uncomfortable, will refer to neurology as outpatient 2. ORtho s/p right hip ORIF due to femur fracture 11-15-20, WBAT f/u ortho outpatient 3. CArdiac- hx of HTN c/u BP meds -HLD c/u statin 4. Resp- monitor for infection 5. Endo- hx of DM c/u glipizide and ISS, adjust prn 6. Heme- post-op anemia due to blood loss s/p prbc transfusion, monitor while on ARU and consider transfusion if Hgb <8 or symptomatic 7. DVT ppx- TEDs, on xarelto 8. Pain- tylenol, oxycodone, and gabapentin 9. GI ppx- protonix -no further complaints of abdominal pain 10. renal- MUNIRA on CKD getting worse, renal following, s/p course of IV lasix, c/u now on torsemide- recs appreciated, f/u renal on d/c 11. Dispo- TBD Allergies Coded Allergies: No Known Allergies (Unverified , 11/14/20) Vital Signs Vital Signs Date Time Temp Pulse Resp B/P (MAP) Pulse Ox O2 Delivery O2 Flow Rate FiO2 11/27/20 07:39 63 142/67 11/27/20 06:00 98.0 18 93 Room Air Laboratory Data CBC/BMP Laboratory Tests 11/27/20 06:42 Labs 24H Laboratory Tests 2 11/26/20 11:40: Bedside Glucose (Misc Panel) 178H 11/26/20 17:15: Bedside Glucose (Misc Panel) 110 11/26/20 19:39: Bedside Glucose (Misc Panel) 183H 11/27/20 05:22: Bedside Glucose (Misc Panel) 103 11/27/20 06:42: Immature Granulocyte % (Auto) 0.5, Neutrophils (%) (Auto) 62.4, Lymphocytes (%) (Auto) 24.5, Monocytes (%) (Auto) 9.1H, Eosinophils (%) (Auto) 2.7, Basophils (%) (Auto) 0.8, Neutrophils # (Auto) 3.7, Lymphocytes # (Auto) 1.5, Monocytes # (Auto) 0.5, Eosinophils # (Auto) 0.2, Basophils # (Auto) 0.1, Nucleated Red Blood Cells % (auto) 0.0, Anion Gap 7L, Glomerular Filtration Rate 27.0L, Calcium Level 9.0 Current Medications Current Medications Current Medications Medications (Trade) Dose Ordered Sig/Aftab Route PRN Reason Start Time Stop Time Status Last Admin Dose Admin Acetaminophen (Tylenol Tab) 1,000 mg TID PO 11/18/20 16:00 11/27/20 07:39 Amlodipine Besylate (Norvasc) 5 mg DAILY PO 11/19/20 17:25 11/20/20 10:46 DC 11/20/20 08:25 Amlodipine Besylate (Norvasc) 5 mg DAILY PO 11/23/20 09:00 11/27/20 07:39 Amlodipine Besylate (Norvasc) 10 mg DAILY PO 11/21/20 09:00 11/22/20 13:39 DC 11/22/20 07:56 Bisacodyl (Dulcolax Suppository) 10 mg DAILYPRN PRN [place] CONSTIPATION 11/18/20 13:20 Dextrose (Dextrose 50%) 25 ml ASDIRECTED PRN IV SEE LABEL COMMENTS 11/18/20 13:20 Docusate Sodium (Colace) 100 mg BID PO 11/18/20 21:00 11/25/20 11:27 DC 11/25/20 07:57 Docusate Sodium (Colace) 100 mg TID PO 11/25/20 16:00 11/27/20 07:39 Furosemide (LASIX injection) 40 mg Q8H IV 11/22/20 16:00 11/25/20 06:31 DC 11/24/20 23:37 Gabapentin (Neurontin) 300 mg TID PO 11/18/20 16:00 11/27/20 07:40 Glipizide (Glucotrol Xl) 5 mg DAILY@0730 PO 11/19/20 07:30 11/20/20 12:31 DC 11/20/20 08:24 Glipizide (Glucotrol Xl) 5 mg DAILY@0730 PO 11/21/20 07:30 11/26/20 13:33 DC 11/26/20 08:18 Glipizide (Glucotrol Xl) 10 mg DAILY@0730 PO 11/27/20 07:30 11/27/20 07:40 Glipizide (Glucotrol) 7.5 mg BID@0730,1730 PO 11/27/20 07:30 11/26/20 14:05 DC Glucagon (Glucagon) 1 mg ASDIRECTED PRN SC SEE LABEL COMMENTS 11/18/20 13:20 Glucose (Glucose) 16 GM ASDIRECTED PRN PO SEE LABEL COMMENTS 11/18/20 13:20 Home Med (Med Rec Complete!) ASDIRECTED XX 11/18/20 14:05 11/18/20 14:28 DC Insulin Human Lispro (HumaLOG INSULIN) SEE PROTOCOL TABLE AC SC 11/18/20 17:30 11/26/20 18:19 Insulin Human Lispro (HumaLOG INSULIN) SEE PROTOCOL TABLE QHS SC 11/18/20 21:00 Metoprolol Tartrate (Lopressor) 25 mg BID PO 11/19/20 10:50 11/20/20 10:45 DC 11/20/20 08:24 Metoprolol Tartrate (Lopressor) 50 mg Q8H PO 11/20/20 14:00 11/27/20 05:41 Ondansetron HCl (Zofran Odt) 4 mg Q6HP PRN PO NAUSEA OR VOMITING 11/18/20 13:20 11/21/20 09:25 Oxycodone/ Acetaminophen (Percocet 5mg/ 325mg Tablet) 1 tab Q6HP PRN PO PAIN LEVEL 6-10 11/18/20 15:15 Pantoprazole Sodium (Protonix) 40 mg DAILY PO 11/19/20 09:00 11/27/20 07:39 Polyethylene Glycol (Miralax) 1 pkt DAILY PO 11/25/20 11:25 11/27/20 07:40 Pravastatin Sodium (Pravachol) 40 mg QAM PO 11/19/20 09:00 11/27/20 07:39 Ramipril (Altace) 5 mg DAILY PO 11/19/20 09:00 11/20/20 10:45 DC 11/20/20 08:23 Rivaroxaban (Xarelto) 10 mg DAILY@18 PO 11/19/20 18:00 11/26/20 18:19 Senna (Senokot) 1 tab QHS PO 11/18/20 21:00 11/26/20 20:20 Torsemide (Demadex) 20 mg BID@09,17 PO 11/25/20 09:00 11/26/20 11:12 DC 11/26/20 08:19 Torsemide (Demadex) 20 mg DAILY PO 11/27/20 09:00 11/27/20 07:45 IHSAN CHRISTOPHER MD Nov 27, 2020 09:22
--- NOTE | 2020-11-27 10:08 | IPN ---
PROGRESS NOTE DATE: 11/27/2020 SUBJECTIVE: The patient was seen and examined at the bedside today morning in the rehab unit. She was getting Physical Therapy. Her diuretic was changed to once a day only yesterday because of rising creatinine. She reports the edema is stable and improving. No other active complaints at this time. OBJECTIVE: VITAL SIGNS: Temperature is 98 degrees Fahrenheit, blood pressure is 142/67, pulse is 65, respiratory rate is 18, saturating is 93% on room air. INTAKE AND OUTPUT: Urine output is not recorded. She has incontinent voids. Weight on the bed scale is 88.1 kg which is slowly decreasing. GENERAL: Patient is awake, alert and oriented x3, sitting on the exercise machine. HEAD AND NECK: Extraocular muscles intact. Pupils equally round and reactive to light. Mucous membranes are moist. Neck is supple. There is no JVD. CARDIOVASCULAR: S1 and S2, regular rate. There is 2+ edema of the right lower extremity, there is 1+ edema of the left lower extremity. RESPIRATORY: Chest is clear to auscultation bilaterally. Bilateral equal air entry. No rales or rhonchi. ABDOMEN: Soft, and nontender. MUSCULOSKELETAL: Right leg has surgical scar. Edema in the right leg is slightly worse as compared with left. SUGAR DRIER: No focal deficit. Power is 5/5 in all extremities. LABORATORY DATA: CBC showed a WBC of 6, hemoglobin 9.9, platelets are 287,000. BMP showed a sodium of 137, potassium 4.3, chloride 99, bicarbonate 31, BUN 48, creatinine is 1.9, it was 1.87 yesterday. CURRENT INPATIENT MEDICATIONS: Patient's medications were all reviewed by myself. She is on torsemide 20 mg p.o. daily. No other significant change in the medications today as compared with yesterday. ASSESSMENT AND PLAN: 1. Acute renal failure superimposed on chronic kidney disease. Patient's creatinine has been fluctuating between 1.8 to 1.9. At this point, we need to continue diuretic because of lower extremity edema. I have asked the nursing staff to do a bladder scan and do straight catheterization for more than 250 ml of postvoid residual. 2. Anemia secondary to recent blood loss after surgery. Patient is being started on iron tablets. 3. Hypertension, blood pressure is controlled with current dose of metoprolol and amlodipine along with diuretic. 4. Lower extremity edema. Torsemide was decreased to 20 mg p.o. daily because of rising creatinine and alkalosis. Okay to continue the current dose.
[2020-11-27] MEDS ORDERED: PILL CUTTER 1 EACH XX PRN (12:25)
[2020-11-27] MEDS ORDERED: SINEMET 25-100 MG TAB PO SCH (13:00)
[2020-11-27] MEDS: FERROUS GLUCONATE 324 MG TAB PO SCH (13:23)
[2020-11-27 14:00] VITALS: BP 113/58
[2020-11-27] MEDS: RIVAROXABAN 10 MG TAB (XARELTO) PO SCH (17:31)
--- NOTE | 2020-11-27 18:39 | IPNPDOC ---
Text Note Date of Service The patient was seen on 11/27/20. NOTE Subjective: Patient is a 75-year-old female who presented for a proximal comm inuted fracture of the right femur. Dr. Kellogg took the patient to the OR on 11/15/2020 for a right hip closed reduction and cephalomedullary nail fixation. Patient's hospitalization was complicated by MUNIRA and anemia both which had resolved and patient was admitted to the acute rehabilitation unit. Patient states that her rehab is going well. Dr. Corbin of nephrology was consulted and has been following the patient and adjusting her diuretic dose. Patient's creatinine has stabilized around 1.8-1.9 for the past 2 days. Patient's leg swelling is getting better. Patient is otherwise doing well and does not complain of any pain or other issues. Review of systems: General: Patient denies fevers HEENT: Patient denies headaches Cardiovascular: Patient denies chest pain Respiratory: Patient denies shortness of breath, cough GI: Patient denies abdominal pain, nausea, vomiting, diarrhea : Patient denies increased frequency or pain with urination Extremities: Patient denies swelling or pain in extremities Neurological: Patient denies numbness or tingling in legs Physical exam: Vitals: See below General: Alert and oriented female patient was sitting in her bedside chair and walked in the room. Patient not appear to be in any acute distress. HEENT: Normocephalic, atraumatic, moist mucous membranes. Neck: No lymphadenopathy or thyromegaly Cardiac: Regular rate and rhythm, no murmurs, normal S1, normal S2 Pulm: Clear to auscultation bilaterally. No wheezes, rhonchi, rales Abd: Nondistended, nontender to palpation, normal bowel sounds Ext: 2+ pitting edema in the right lower extremity with 1+ pitting edema in the left lower extremity Labs: See below Imaging: No new imaging has been performed Assessment/plan: 75-year-old female presented with a proximal comminuted fracture of the right femur who was taken to the OR by Dr. Kellogg on 11/15/2020 who is now in the acute rehabilitation unit 1. Right hip fracture. Taken to the OR on 11/15/2020. Continue with rehab whic h is going well. Continue Xarelto 10 mg daily for DVT prophylaxis 2. Acute kidney injury on chronic renal disease stage III. Dr. Corbin of nephrology is following and we appreciate his help treating the patient. 3. Anemia chronic disease. Continue to monitor CBC. Patient's last hemoglobin was 9.9 on 11/27/2020 4. Diabetes mellitus. Sliding scale insulin and consistent carb diet 5. Hypertension. Continue ramipril and amlodipine 6. Hyperlipidemia continue pravastatin DVT Prophylaxis: Xarelto 10 mg daily Disposition: Per ARU discharge plan according to the patient is 12/03/2020. VS,Fishbone, I+O VS, Fishbone, I+O Laboratory Tests 11/27/20 06:42 Vital Signs Date Time Temp Pulse Resp B/P (MAP) Pulse Ox O2 Delivery O2 Flow Rate FiO2 11/27/20 14:00 97.7 69 18 113/58 (76) 97 Room Air I&O- Last 24 Hours up to 6 AM 11/27/20 06:00 Intake Total 1000 ml Balance 1000 ml SURAJ NASSAR DO Nov 27, 2020 18:39
[2020-11-27 20:00] VITALS: BP 122/58
[2020-11-27] MEDS: SENNA 8.6 MG TAB (SENOKOT) PO SCH (21:15)
[2020-11-28] MEDS ORDERED: ACETAMINOPHEN 500 MG TAB PO ONE (02:45)
[2020-11-28] MEDS: METOPROLOL TART 50 MG TAB PO SCH ×3 (05:49→21:09)
[2020-11-28 06:00] VITALS: BP 128/55
[2020-11-28 07:05] LABS: BASO % 0.5 % (0.0-1.0); EOS # 0.2 10^3/uL (0.0-0.5); EOS % 2.9 % (0.0-3.0); HEMATOCRIT 30.9 % (36.0-47.0); LYMPH # 1.5 10^3/uL (1.5-5.0); LYMPH % 25.6 % (24.0-44.0); MEAN CORPUSCULAR HEMOGLOBIN 29.9 pg (27.0-33.0); MEAN CORPUSCULAR HGB CONC 32.4 g/dl (32.0-36.5); MEAN CORPUSCULAR VOLUME 92.2 fl (80.0-96.0); MONO # 0.6 10^3/uL (0.0-0.8); MONO % 10.5 % (2.0-8.0); NEUTROPHILS # 3.6 10^3/uL (1.5-8.5); NEUTROPHILS % 60.3 % (36.0-66.0); PLATELET COUNT, AUTOMATED 254 10^3/uL (150-450); RED BLOOD COUNT 3.35 10^6/uL (4.00-5.40); WHITE BLOOD COUNT 5.9 10^3/uL (4.0-10.0)
[2020-11-28 07:22] LABS: ALBUMIN 3.2 GM/DL (3.2-5.2); CALCIUM LEVEL 8.8 MG/DL (8.8-10.2); CREATININE FOR GFR 1.81 MG/DL (0.55-1.30); GLOMERULAR FILTRATION RATE 28.9 (>39); PHOSPHORUS LEVEL 3.7 MG/DL (2.5-4.9); POTASSIUM SERUM 4.2 MEQ/L (3.5-5.1)
[2020-11-28] MEDS: PANTOPRAZOLE 40MG TAB (PROTONIX) PO SCH (07:39)
[2020-11-28] MEDS: DOCUSATE SODIUM 100MG CAPSULE PO SCH ×3 (07:39→21:03)
[2020-11-28] MEDS: GABAPENTIN 300 MG CAP PO SCH ×3 (07:39→21:03)
[2020-11-28] MEDS: PRAVASTATIN 20 MG TAB PO SCH (07:40)
[2020-11-28] MEDS: glipiZIDE XL 5 MG TABCR PO SCH (07:40)
[2020-11-28] MEDS: FERROUS GLUCONATE 324 MG TAB PO SCH (07:40)
[2020-11-28] MEDS: HumaLOG INSULIN (NovoLOG) PER UNIT SC SCH ×4 (07:41→21:00)
[2020-11-28] MEDS: amLODIPine 5 MG TAB PO SCH (07:41)
[2020-11-28] MEDS: TORSEMIDE 20 MG TAB PO SCH (07:41)
[2020-11-28] MEDS: REMEDY PHYTOPLEX Z-GUARD PASTE 113GM TUBE (FROM STOREROOM PRODUCT) TOP SCH ×3 (07:42→21:06)
[2020-11-28] MEDS: MIRALAX *UNIT DOSE* 17GM PACKET PO SCH (07:42)
[2020-11-28] MEDS: ACETAMINOPHEN 500 MG TAB PO SCH ×3 (09:22→21:04)
[2020-11-28 14:00] VITALS: BP 130/61
--- NOTE | 2020-11-28 16:17 | IPN ---
NEPHROLOGY PROGRESS NOTE DATE: 11/28/2020 SUBJECTIVE: Marina was seen and examined this morning in the rehabilitation unit, sitting in the chair, having breakfast. She denies any complaints. Reports that her rehabilitation is going well. Laboratory studies show stable renal function the past several days. She denies any shortness of breath. She reports her leg swelling has improved. OBJECTIVE: VITAL SIGNS: Temperature 98.3, pulse 67, respiratory rate 18, blood pressure 128/55, saturating 97% on room air. Weight in the bed scale today is 88.5 kg. GENERAL: Patient is seen sitting out of bed in the chair, awake, alert, oriented times three, interactive, conversational. No distress. Elderly female. HEENT: Extraocular muscles are intact. Tongue is moist. Neck is supple. Jugular veins are not elevated. HEART: Heart sounds are regular. S1, S2. There is edema in the right lower extremity, but no edema in the left lower extremity. LUNGS: Clear to auscultation bilaterally. No crackle or rale. ABDOMEN: Soft, nontender and obese. SKIN: Warm and dry. LABORATORY DATA: Sodium 141, potassium 4.2, bicarbonate 33, BUN 44, creatinine 1.8, phosphorus 3.7. Hemoglobin 10.0, platelets 254. Stool occult blood was negative. INPATIENT MEDICATIONS: She continues on Torsemide 20 mg by mouth daily. Her oxycodone was stopped and she got a dose of Tylenol. The remainder of the medications are all unchanged as compared to yesterday. PROBLEMS: 1. Acute kidney injury superimposed on chronic kidney disease stage IIIB. I reviewed the patient's renal panels from 2016 to present. Her baseline creatinine is 1.4-1.7. Her acute kidney injury is very mild. There is no obstruction on recent renal ultrasound done two weeks ago. Her urinalysis is negative and benign. Her renal function has been plateau and stable with creatinine around 1.8 the past several days. I would continue her on the current diuretic regimen of torsemide 20 mg daily. I made no changes today. 2. Localized edema. Patient is on torsemide 20 mg daily. Her daily weights are downtrending. Her leg edema is much improved. In fact, I saw no edema on the left today. She does have edema on the right, and that is in the setting of right hip fracture. 3. Hypertension. Systolic has been 110s to 140s and is optimally controlled and she continues on amlodipine, metoprolol and torsemide. She takes ramipril at home, but I would continue to hold that, given mild recent acute kidney injury. 4. Metabolic alkalosis. It is secondary to diuretic and we will keep an eye on her bicarbonate level. Continue current dose of diuretic. 5. Anemia related to iron deficiency. Patient had a transferring saturation of only 11% two weeks ago. She is receiving oral iron supplementation.
[2020-11-28] MEDS: RIVAROXABAN 10 MG TAB (XARELTO) PO SCH (18:06)
[2020-11-28 20:00] VITALS: BP 122/60
[2020-11-28] MEDS: SENNA 8.6 MG TAB (SENOKOT) PO SCH (21:03)
[2020-11-29] MEDS: METOPROLOL TART 50 MG TAB PO SCH ×3 (05:31→21:18)
[2020-11-29 06:19] VITALS: BP 141/66
[2020-11-29] MEDS: MIRALAX *UNIT DOSE* 17GM PACKET PO SCH (08:29)
[2020-11-29] MEDS: FERROUS GLUCONATE 324 MG TAB PO SCH (08:30)
[2020-11-29] MEDS: PANTOPRAZOLE 40MG TAB (PROTONIX) PO SCH (08:30)
[2020-11-29] MEDS: DOCUSATE SODIUM 100MG CAPSULE PO SCH ×3 (08:30→21:14)
[2020-11-29] MEDS: ACETAMINOPHEN 500 MG TAB PO SCH ×3 (08:30→21:15)
[2020-11-29] MEDS: GABAPENTIN 300 MG CAP PO SCH ×3 (08:30→21:14)
[2020-11-29] MEDS: PRAVASTATIN 20 MG TAB PO SCH (08:30)
[2020-11-29] MEDS: TORSEMIDE 20 MG TAB PO SCH (08:30)
[2020-11-29] MEDS: amLODIPine 5 MG TAB PO SCH (08:31)
[2020-11-29] MEDS: HumaLOG INSULIN (NovoLOG) PER UNIT SC SCH ×4 (08:31→21:00)
[2020-11-29] MEDS: glipiZIDE XL 5 MG TABCR PO SCH (08:31)
[2020-11-29] MEDS: REMEDY PHYTOPLEX Z-GUARD PASTE 113GM TUBE (FROM STOREROOM PRODUCT) TOP SCH ×3 (08:32→21:19)
[2020-11-29 14:00] VITALS: BP 141/65
[2020-11-29] MEDS: RIVAROXABAN 10 MG TAB (XARELTO) PO SCH (17:39)
[2020-11-29 20:00] VITALS: BP 137/65
[2020-11-29] MEDS: SENNA 8.6 MG TAB (SENOKOT) PO SCH (21:14)
[2020-11-30] MEDS: METOPROLOL TART 50 MG TAB PO SCH ×3 (05:43→21:09)
[2020-11-30 06:00] VITALS: BP 150/70
[2020-11-30 07:45] LABS: BASO # 0.1 10^3/uL (0.0-0.2); BASO % 1.3 % (0.0-1.0); EOS # 0.2 10^3/uL (0.0-0.5); EOS % 2.9 % (0.0-3.0); HEMATOCRIT 32.7 % (36.0-47.0); HEMOGLOBIN 10.3 g/dl (12.0-15.5); LYMPH # 1.6 10^3/uL (1.5-5.0); LYMPH % 28.1 % (24.0-44.0); MEAN CORPUSCULAR HEMOGLOBIN 29.5 pg (27.0-33.0); MEAN CORPUSCULAR HGB CONC 31.5 g/dl (32.0-36.5); MEAN CORPUSCULAR VOLUME 93.7 fl (80.0-96.0); MONO # 0.5 10^3/uL (0.0-0.8); MONO % 9.7 % (2.0-8.0); NEUTROPHILS # 3.2 10^3/uL (1.5-8.5); NEUTROPHILS % 57.6 % (36.0-66.0); PLATELET COUNT, AUTOMATED 283 10^3/uL (150-450); RED BLOOD COUNT 3.49 10^6/uL (4.00-5.40); WHITE BLOOD COUNT 5.6 10^3/uL (4.0-10.0)
[2020-11-30 08:21] LABS: ALBUMIN 3.4 GM/DL (3.2-5.2); CALCIUM LEVEL 9.2 MG/DL (8.8-10.2); CREATININE FOR GFR 1.75 MG/DL (0.55-1.30); MAGNESIUM LEVEL 2.2 MG/DL (1.8-2.4); PERCENT SATURATION 19.5 % (13.2-45.0); PHOSPHORUS LEVEL 3.5 MG/DL (2.5-4.9); POTASSIUM SERUM 4.2 MEQ/L (3.5-5.1)
[2020-11-30] MEDS: HumaLOG INSULIN (NovoLOG) PER UNIT SC SCH ×4 (08:47→21:00)
[2020-11-30] MEDS: ACETAMINOPHEN 500 MG TAB PO SCH ×3 (08:47→21:07)
[2020-11-30] MEDS: glipiZIDE XL 5 MG TABCR PO SCH (08:47)
[2020-11-30] MEDS: DOCUSATE SODIUM 100MG CAPSULE PO SCH ×3 (08:48→21:06)
[2020-11-30] MEDS: GABAPENTIN 300 MG CAP PO SCH ×3 (08:48→21:07)
[2020-11-30] MEDS: FERROUS GLUCONATE 324 MG TAB PO SCH (08:48)
[2020-11-30] MEDS: PANTOPRAZOLE 40MG TAB (PROTONIX) PO SCH (08:48)
[2020-11-30] MEDS: TORSEMIDE 20 MG TAB PO SCH (08:48)
[2020-11-30] MEDS: PRAVASTATIN 20 MG TAB PO SCH (08:49)
[2020-11-30] MEDS: MIRALAX *UNIT DOSE* 17GM PACKET PO SCH (08:49)
[2020-11-30] MEDS: amLODIPine 5 MG TAB PO SCH (08:54)
--- NOTE | 2020-11-30 09:12 | IPNPDOC ---
PM&R Progress Note DATE OF SERVICE: Nov 30, 2020 Philosophy Professor Progress Note Subjective: Patient seen in her room stating she is in pretty good spirits and thinks she is moving better in therapy. She is wondering when her kaylin will be removed and that she is having regular bowel movements. REVIEW OF SYSTEMS: The following is a completed review of systems and has been reviewed. Review of systems otherwise unremarkable. PAIN: Patient self reports right hip pain EYES: No recent vision changes EARS, NOSE, & THROAT: No throat pain, or dysphagia, or rhinorrhea CARDIOVASCULAR: Denies chest pain or palpitations PULMONARY: Denies shortness of breath GASTROINTESTINAL:no constipation/diarrhea GENITOURINARY: denies dysuria MUSCULOSKELETAL: s/p right hip fracture NEUROLOGICAL:denies paresthesia HEMATOLOGICAL: +anemia SKIN: right hip incision PSYCHIATRIC: Unremarkable All other review of systems found to be negative. PHYSICAL EXAMINATION: VITAL SIGNS: Please see below. GENERAL: Pleasant and cooperative. No acute distress. HEENT: PERRL. Extraocular movements intact. Clear conjunctiva CARDIOVASCULAR: Regular rate and rhythm. No murmurs, rubs, or gallops LUNGS: Clear to auscultation bilaterally. No wheezes. No rhonchi ABDOMEN: Soft, nontender, nondistended. Positive bowel sounds. Normal active bowel sounds NEUROLOGICAL: Alert and oriented times three. Cranial nerves II through XII grossly intact. Sensation grossly intact including 1st web space left foot EXTREMITIES: 5\5 strength bilateral upper extremities.5\5 strength right ankle DF/and EHL (limited due to hip surgery) 5/5 strength in left lower extremity. Bilat LE edema (improving) SKIN: right hip janet-incision with mild edema, no induration/erythema +sacral ulcer LABORATORY DATA: Please see below. ASSESSMENT:75-year-old F with past medical history of HTN who presents status post right hip fracture and ORIF PLAN: 1. REhab- PT/OT advance mobility and ADLs, strengthen/stretch/maintain ROM all 4limbs, ambulating with RW 2. Neuro- possible parkinsonism? patient noted in therapy to have shuffled gait and on exam she has a slightly masked faces, discussed dopaminergic intervention with patient and son, will hold off on starting as patient uncomfortable, will refer to neurology as outpatient 2. ORtho s/p right hip ORIF due to femur fracture 11-15-20, WBAT f/u ortho outpatient 3. CArdiac- hx of HTN c/u BP meds -HLD c/u statin 4. Resp- monitor for infection 5. Endo- hx of DM c/u glipizide and ISS, adjust prn 6. Heme- post-op anemia due to blood loss s/p prbc transfusion, monitor while on ARU and consider transfusion if Hgb <8 or symptomatic 7. DVT ppx- TEDs, on xarelto 8. Pain- tylenol, oxycodone, and gabapentin 9. GI ppx- protonix -no further complaints of abdominal pain 10. renal- MUNIRA on CKD getting worse, renal following, s/p course of IV lasix, c/u now on torsemide- recs appreciated, f/u renal on d/c 11. Dispo- TBD Allergies Coded Allergies: No Known Allergies (Unverified , 11/14/20) Vital Signs Vital Signs Date Time Temp Pulse Resp B/P (MAP) Pulse Ox O2 Delivery O2 Flow Rate FiO2 11/30/20 08:54 65 138/65 11/30/20 06:00 99.6 20 96 Room Air Laboratory Data CBC/BMP Laboratory Tests 11/30/20 06:53 Labs 24H Laboratory Tests 2 11/29/20 11:24: Bedside Glucose (Misc Panel) 210H 11/29/20 16:26: Bedside Glucose (Misc Panel) 173H 11/29/20 20:16: Bedside Glucose (Misc Panel) 156H 11/30/20 06:46: Bedside Glucose (Misc Panel) 138H 11/30/20 06:53: Immature Granulocyte % (Auto) 0.4, Neutrophils (%) (Auto) 57.6, Lymphocytes (%) (Auto) 28.1, Monocytes (%) (Auto) 9.7H, Eosinophils (%) (Auto) 2.9, Basophils (%) (Auto) 1.3H, Neutrophils # (Auto) 3.2, Lymphocytes # (Auto) 1.6, Monocytes # (Auto) 0.5, Eosinophils # (Auto) 0.2, Basophils # (Auto) 0.1, Nucleated Red Blood Cells % (auto) 0.0, Anion Gap 5L, Glomerular Filtration Rate 30.0L, Calcium Level 9.2, Phosphorus Level 3.5, Magnesium Level 2.2, Iron Level 60, Total Iron Binding Capacity 308, Transferrin % Saturation 19.5, Ferritin 666H, Albumin 3.4 Microbiology Microbiology 11/28/20 Stool Occult Blood (CADENCE) - Final, Complete Current Medications Current Medications Current Medications Medications (Trade) Dose Ordered Sig/Aftab Route PRN Reason Start Time Stop Time Status Last Admin Dose Admin Acetaminophen (Tylenol Tab) 1,000 mg TID PO 11/18/20 16:00 11/30/20 08:47 Amlodipine Besylate (Norvasc) 5 mg DAILY PO 11/19/20 17:25 11/20/20 10:46 DC 11/20/20 08:25 Amlodipine Besylate (Norvasc) 5 mg DAILY PO 11/23/20 09:00 11/30/20 08:54 Amlodipine Besylate (Norvasc) 10 mg DAILY PO 11/21/20 09:00 11/22/20 13:39 DC 11/22/20 07:56 Bisacodyl (Dulcolax Suppository) 10 mg DAILYPRN PRN [place] CONSTIPATION 11/18/20 13:20 Carbidopa/Levodopa (Sinemet 25/100) 0.5 tab DAILY@0800,1300,1800 PO 11/27/20 13:00 11/27/20 13:19 DC Dextrose (Dextrose 50%) 25 ml ASDIRECTED PRN IV SEE LABEL COMMENTS 11/18/20 13:20 Docusate Sodium (Colace) 100 mg BID PO 11/18/20 21:00 11/25/20 11:27 DC 11/25/20 07:57 Docusate Sodium (Colace) 100 mg TID PO 11/25/20 16:00 11/29/20 21:14 Ferrous Gluconate (Fergon) 324 mg DAILY PO 11/27/20 09:00 11/30/20 08:48 Furosemide (LASIX injection) 40 mg Q8H IV 11/22/20 16:00 11/25/20 06:31 DC 11/24/20 23:37 Gabapentin (Neurontin) 300 mg TID PO 11/18/20 16:00 11/30/20 08:48 Glipizide (Glucotrol Xl) 5 mg DAILY@0730 PO 11/19/20 07:30 11/20/20 12:31 DC 11/20/20 08:24 Glipizide (Glucotrol Xl) 5 mg DAILY@0730 PO 11/21/20 07:30 11/26/20 13:33 DC 11/26/20 08:18 Glipizide (Glucotrol Xl) 5 mg DAILY@0730 PO 11/28/20 07:30 11/30/20 08:47 Glipizide (Glucotrol Xl) 10 mg DAILY@0730 PO 11/27/20 07:30 11/27/20 09:22 DC 11/27/20 07:40 Glipizide (Glucotrol) 7.5 mg BID@0730,1730 PO 11/27/20 07:30 11/26/20 14:05 DC Glucagon (Glucagon) 1 mg ASDIRECTED PRN SC SEE LABEL COMMENTS 11/18/20 13:20 Glucose (Glucose) 16 GM ASDIRECTED PRN PO SEE LABEL COMMENTS 11/18/20 13:20 Home Med (Med Rec Complete!) ASDIRECTED XX 11/18/20 14:05 11/18/20 14:28 DC Insulin Human Lispro (HumaLOG INSULIN) SEE PROTOCOL TABLE AC SC 11/18/20 17:30 11/30/20 08:47 Insulin Human Lispro (HumaLOG INSULIN) SEE PROTOCOL TABLE QHS SC 11/18/20 21:00 Metoprolol Tartrate (Lopressor) 25 mg BID PO 11/19/20 10:50 11/20/20 10:45 DC 11/20/20 08:24 Metoprolol Tartrate (Lopressor) 50 mg Q8H PO 11/20/20 14:00 11/30/20 05:43 Ondansetron HCl (Zofran Odt) 4 mg Q6HP PRN PO NAUSEA OR VOMITING 11/18/20 13:20 11/21/20 09:25 Oxycodone/ Acetaminophen (Percocet 5mg/ 325mg Tablet) 1 tab Q6HP PRN PO PAIN LEVEL 6-10 11/18/20 15:15 11/28/20 13:54 DC Pantoprazole Sodium (Protonix) 40 mg DAILY PO 11/19/20 09:00 11/30/20 08:48 Polyethylene Glycol (Miralax) 1 pkt DAILY PO 11/25/20 11:25 11/29/20 08:29 Pravastatin Sodium (Pravachol) 40 mg QAM PO 11/19/20 09:00 11/30/20 08:49 Ramipril (Altace) 5 mg DAILY PO 11/19/20 09:00 11/20/20 10:45 DC 11/20/20 08:23 Rivaroxaban (Xarelto) 10 mg DAILY@18 PO 11/19/20 18:00 11/29/20 17:39 Senna (Senokot) 1 tab QHS PO 11/18/20 21:00 11/29/20 21:14 Torsemide (Demadex) 20 mg BID@09,17 PO 11/25/20 09:00 11/26/20 11:12 DC 11/26/20 08:19 Torsemide (Demadex) 20 mg DAILY PO 11/27/20 09:00 11/30/20 08:48 IHSAN CHRISTOPHER MD Nov 30, 2020 09:12
[2020-11-30] MEDS: REMEDY PHYTOPLEX Z-GUARD PASTE 113GM TUBE (FROM STOREROOM PRODUCT) TOP SCH ×3 (09:37→21:00)
[2020-11-30 10:42] LABS: PTH INTACT 102.1 PG/ML (18.5-88.0)
--- NOTE | 2020-11-30 12:39 | IPN ---
INPATIENT PROGRESS NOTE DATE: 11/30/2020 SUBJECTIVE: Miss Gray is seen and examined this morning in the gym working with the physical therapist and using the stationary exercise bike. She denies any complaints, denies any dyspnea with exertion, denies any worsening leg swelling, has been doing well in acute rehabilitation. Labs show stable renal function. PHYSICAL EXAMINATION: Vital signs: Temperature 99.6, pulse 67, respiratory rate 20, blood pressure 150/70, saturating 96% on room air. Weight on the bed scale today is 87.5 which is a little lower than it was the past couple of days. General: Patient is seen walking in the gym using a walker and getting on the exercise bike, elderly female, awake, alert and oriented times 3, comfortable in no distress. HEENT: Extraocular muscles are intact. Tongue is moist. Neck: Supple. Jugular veins are not elevated. Heart sounds: Regular S1 and S2. There is 1+ edema on the right lower extremity and no edema on the left lower extremity. Lungs: Clear to auscultation bilaterally, no crackle or rale. Abdomen: Soft, obese and nontender. Extremities: There is edema in the right lower extremity (in the setting of right hip fracture). There is no edema in the left lower extremity. Neurologic: She is awake, alert, oriented times 3, conversational and cooperative with physical exam. No focal deficits. LABORATORY DATA: Sodium 140, potassium 4.2, bicarbonate 32, BUN 45, creatinine 1.7. Transferrin saturation 19%, parathyroid hormone 102. Hemoglobin 10.3. INPATIENT MEDICATIONS: There have been no changes in her medications the past couple of days. PROBLEMS/PLAN: 1. Acute kidney injury superimposed on CKD stage 3B: I reviewed the patient's renal panels from 2015 to present. Her baseline creatinine is 1.4-1.7. Her acute kidney injury was very mild and is recovering. Peak creatinine was 1.9 and down to 1.7 on the labs today. Her urinalysis is negative and benign. Her recent renal ultrasound 2 weeks ago showed no obstruction. Continue current diuretic regimen of torsemide 20 mg daily. I made no changes today. 2. Localized edema: Daily weights are down trending. She is on torsemide 20 mg daily. Her leg edema is much improved in fact there is no edema on the left lower extremity. She does have edema on the right; however, that is in the setting of recent right hip fracture. 3. Hypertension: Systolic blood pressure has been 120s-150 which is optimal and no changes being made to her current anti-hypertensive regimen. She continues on amlodipine, metoprolol and torsemide. I would keep her off of ramipril which she takes at home. 4. Anemia related to recent iron deficiency: Her iron panel has improved and her hemoglobin is stable. There is no need for any I.V. iron at this time. Continue oral ferrous sulfate.
[2020-11-30 14:00] VITALS: BP 122/80
[2020-11-30] MEDS: RIVAROXABAN 10 MG TAB (XARELTO) PO SCH (18:09)
[2020-11-30 20:00] VITALS: BP 124/60
[2020-11-30] MEDS: SENNA 8.6 MG TAB (SENOKOT) PO SCH (21:06)
[2020-12-01] MEDS: METOPROLOL TART 50 MG TAB PO SCH ×3 (05:51→22:03)
[2020-12-01 06:00] VITALS: BP 143/60
[2020-12-01] MEDS: HumaLOG INSULIN (NovoLOG) PER UNIT SC SCH ×4 (08:24→20:12)
[2020-12-01] MEDS: PRAVASTATIN 20 MG TAB PO SCH (08:24)
[2020-12-01] MEDS: PANTOPRAZOLE 40MG TAB (PROTONIX) PO SCH (08:24)
[2020-12-01] MEDS: TORSEMIDE 20 MG TAB PO SCH (08:24)
[2020-12-01] MEDS: glipiZIDE XL 5 MG TABCR PO SCH (08:24)
[2020-12-01] MEDS: DOCUSATE SODIUM 100MG CAPSULE PO SCH ×3 (08:24→20:12)
[2020-12-01] MEDS: GABAPENTIN 300 MG CAP PO SCH ×3 (08:24→20:12)
[2020-12-01] MEDS: FERROUS GLUCONATE 324 MG TAB PO SCH (08:25)
[2020-12-01] MEDS: ACETAMINOPHEN 500 MG TAB PO SCH ×3 (08:25→20:12)
[2020-12-01] MEDS: amLODIPine 5 MG TAB PO SCH (08:25)
[2020-12-01] MEDS: MIRALAX *UNIT DOSE* 17GM PACKET PO SCH (08:26)
[2020-12-01] MEDS: REMEDY PHYTOPLEX Z-GUARD PASTE 113GM TUBE (FROM STOREROOM PRODUCT) TOP SCH ×3 (08:26→20:12)
--- NOTE | 2020-12-01 09:36 | IPNPDOC ---
Text Note Date of Service The patient was seen on 12/01/20. NOTE Subjective: Patient is doing well and does not complain of any pain or other issues Physical exam General: Alert and oriented female patient was sitting in her bedside chair and walked in the room. Patient not appear to be in any acute distress. HEENT: Normocephalic, atraumatic, moist mucous membranes. Neck: No lymphadenopathy or thyromegaly Cardiac: Regular rate and rhythm, no murmurs, normal S1, normal S2 Pulm: Clear to auscultation bilaterally. No wheezes, rhonchi, rales Abd: Nondistended, nontender to palpation, normal bowel sounds Ext: 2+ pitting edema in the right lower extremity with 1+ pitting edema in the left lower extremity Labs: See below Imaging: No new imaging has been performed Assessment/plan: Patient is a 75-year-old female who presented for a proximal comminuted fracture of the right femur. Dr. Kellogg took the patient to the OR on 11/15/2020 for a right hip closed reduction and cephalomedullary nail fixation. Patient's hospitalization was complicated by MUNIRA and anemia both which had resolved and patient was admitted to the acute rehabilitation unit. Dr. Corbin of nephrology was consulted and has been following the patient and adjusting her diuretic dose. Patient's creatinine has stabilized around 1.8-1.9 1. Right hip fracture. Taken to the OR on 11/15/2020. Continue with rehab which is going well. Continue Xarelto 10 mg daily for DVT prophylaxis 2. Acute kidney injury on chronic renal disease stage III. Dr. Corbin of nephrology is following and we appreciate his help treating the patient. 3. Anemia chronic disease. Continue to monitor CBC. Stable 4. Diabetes mellitus. Sliding scale insulin and consistent carb diet 5. Hypertension. Continue ramipril and amlodipine 6. Hyperlipidemia continue pravastatin DVT Prophylaxis: Xarelto 10 mg daily Disposition: Per ARU discharge plan a Elin SCHMIDT, I+O VSElin, I+O Vital Signs Date Time Temp Pulse Resp B/P (MAP) Pulse Ox O2 Delivery O2 Flow Rate FiO2 12/01/20 08:25 68 143/60 12/01/20 06:00 97.6 18 94 Room Air I&O- Last 24 Hours up to 6 AM 12/01/20 06:00 Intake Total 1680 ml Balance 1680 ml ERIN RODRIGUEZ MD Dec 01, 2020 09:36
[2020-12-01 14:00] VITALS: BP 130/62
[2020-12-01] MEDS: RIVAROXABAN 10 MG TAB (XARELTO) PO SCH (17:15)
[2020-12-01 20:00] VITALS: BP 107/58
[2020-12-01] MEDS: SENNA 8.6 MG TAB (SENOKOT) PO SCH (20:12)
[2020-12-02] MEDS: METOPROLOL TART 50 MG TAB PO SCH ×3 (05:59→21:32)
[2020-12-02 06:00] VITALS: BP 159/84
[2020-12-02 06:29] LABS: BASO # 0.1 10^3/uL (0.0-0.2); EOS # 0.2 10^3/uL (0.0-0.5); EOS % 3.8 % (0.0-3.0); HEMATOCRIT 32.6 % (36.0-47.0); HEMOGLOBIN 10.2 g/dl (12.0-15.5); LYMPH # 1.6 10^3/uL (1.5-5.0); LYMPH % 29.8 % (24.0-44.0); MEAN CORPUSCULAR HEMOGLOBIN 29.6 pg (27.0-33.0); MEAN CORPUSCULAR HGB CONC 31.3 g/dl (32.0-36.5); MEAN CORPUSCULAR VOLUME 94.5 fl (80.0-96.0); MONO # 0.4 10^3/uL (0.0-0.8); MONO % 8.4 % (2.0-8.0); NEUTROPHILS % 56.4 % (36.0-66.0); PLATELET COUNT, AUTOMATED 291 10^3/uL (150-450); RED BLOOD COUNT 3.45 10^6/uL (4.00-5.40); WHITE BLOOD COUNT 5.2 10^3/uL (4.0-10.0)
[2020-12-02 06:54] LABS: ALBUMIN 3.5 GM/DL (3.2-5.2); CALCIUM LEVEL 9.5 MG/DL (8.8-10.2); CREATININE FOR GFR 1.86 MG/DL (0.55-1.30); PHOSPHORUS LEVEL 3.8 MG/DL (2.5-4.9); POTASSIUM SERUM 4.4 MEQ/L (3.5-5.1)
[2020-12-02] MEDS: TORSEMIDE 20 MG TAB PO SCH (07:55)
[2020-12-02] MEDS: HumaLOG INSULIN (NovoLOG) PER UNIT SC SCH ×4 (07:55→21:00)
[2020-12-02] MEDS: ACETAMINOPHEN 500 MG TAB PO SCH ×3 (07:56→21:33)
[2020-12-02] MEDS: DOCUSATE SODIUM 100MG CAPSULE PO SCH ×3 (07:56→21:32)
[2020-12-02] MEDS: glipiZIDE XL 5 MG TABCR PO SCH (07:56)
[2020-12-02] MEDS: MIRALAX *UNIT DOSE* 17GM PACKET PO SCH (07:56)
[2020-12-02] MEDS: FERROUS GLUCONATE 324 MG TAB PO SCH (07:56)
[2020-12-02] MEDS: PANTOPRAZOLE 40MG TAB (PROTONIX) PO SCH (07:56)
[2020-12-02] MEDS: REMEDY PHYTOPLEX Z-GUARD PASTE 113GM TUBE (FROM STOREROOM PRODUCT) TOP SCH ×3 (07:57→21:00)
[2020-12-02] MEDS: amLODIPine 5 MG TAB PO SCH (07:57)
[2020-12-02] MEDS: GABAPENTIN 300 MG CAP PO SCH ×3 (07:57→21:32)
[2020-12-02] MEDS: PRAVASTATIN 20 MG TAB PO SCH (07:57)
--- NOTE | 2020-12-02 09:54 | IPNPDOC ---
PM&R Progress Note DATE OF SERVICE: Dec 01, 2020 Audit Partner Progress Note Subjective: Patient seen in her room stating she feels ready to go home on and will try to work on being more active. REVIEW OF SYSTEMS: The following is a completed review of systems and has been reviewed. Review of systems otherwise unremarkable. PAIN: Patient self reports right hip pain EYES: No recent vision changes EARS, NOSE, & THROAT: No throat pain, or dysphagia, or rhinorrhea CARDIOVASCULAR: Denies chest pain or palpitations PULMONARY: Denies shortness of breath GASTROINTESTINAL:no constipation/diarrhea GENITOURINARY: denies dysuria MUSCULOSKELETAL: s/p right hip fracture NEUROLOGICAL:denies paresthesia HEMATOLOGICAL: +anemia SKIN: right hip incision PSYCHIATRIC: Unremarkable All other review of systems found to be negative. PHYSICAL EXAMINATION: VITAL SIGNS: Please see below. GENERAL: Pleasant and cooperative. No acute distress. HEENT: PERRL. Extraocular movements intact. Clear conjunctiva CARDIOVASCULAR: Regular rate and rhythm. No murmurs, rubs, or gallops LUNGS: Clear to auscultation bilaterally. No wheezes. No rhonchi ABDOMEN: Soft, nontender, nondistended. Positive bowel sounds. Normal active bowel sounds NEUROLOGICAL: Alert and oriented times three. Cranial nerves II through XII grossly intact. Sensation grossly intact including 1st web space left foot EXTREMITIES: 5\5 strength bilateral upper extremities.5\5 strength right ankle DF/and EHL (limited due to hip surgery) 5/5 strength in left lower extremity. Bilat LE edema (improving) SKIN: right hip janet-incision with mild edema, no induration/erythema +sacral ulcer LABORATORY DATA: Please see below. ASSESSMENT:75-year-old F with past medical history of HTN who presents status post right hip fracture and ORIF PLAN: 1. REhab- PT/OT advance mobility and ADLs, strengthen/stretch/maintain ROM all 4limbs, ambulating with RW 2. Neuro- possible parkinsonism? patient noted in therapy to have shuffled gait and on exam she has a slightly masked faces, discussed dopaminergic intervention with patient and son, will hold off on starting as patient uncomfortable, will refer to neurology as outpatient- patient starting to ambulate a little more quickly 2. ORtho s/p right hip ORIF due to femur fracture 11-15-20, WBAT f/u ortho outpatient 3. CArdiac- hx of HTN c/u BP meds -HLD c/u statin 4. Resp- monitor for infection 5. Endo- hx of DM c/u glipizide and ISS, adjust prn 6. Heme- post-op anemia due to blood loss s/p prbc transfusion, monitor while on ARU and consider transfusion if Hgb <8 or symptomatic 7. DVT ppx- TEDs, on xarelto 8. Pain- tylenol, oxycodone, and gabapentin 9. GI ppx- protonix -no further complaints of abdominal pain 10. renal- MUNIRA on CKD getting worse, renal following, s/p course of IV lasix, c/u now on torsemide- recs appreciated, f/u renal on d/c 11. Dispo- 12-03-20 to home pending family training with Allergies Coded Allergies: No Known Allergies (Unverified , 11/14/20) Vital Signs Vital Signs Date Time Temp Pulse Resp B/P (MAP) Pulse Ox O2 Delivery O2 Flow Rate FiO2 12/02/20 07:57 71 148/76 12/02/20 06:00 97.6 18 94 Room Air Laboratory Data CBC/BMP Laboratory Tests 12/02/20 06:09 Labs 24H Laboratory Tests 2 12/01/20 11:41: Bedside Glucose (Misc Panel) 141H 12/01/20 16:23: Bedside Glucose (Misc Panel) 179H 12/01/20 19:29: Bedside Glucose (Misc Panel) 253H 12/02/20 05:17: Bedside Glucose (Misc Panel) 130H 12/02/20 06:09: Immature Granulocyte % (Auto) 0.6, Neutrophils (%) (Auto) 56.4, Lymphocytes (%) (Auto) 29.8, Monocytes (%) (Auto) 8.4H, Eosinophils (%) (Auto) 3.8H, Basophils (%) (Auto) 1.0, Neutrophils # (Auto) 3.0, Lymphocytes # (Auto) 1.6, Monocytes # (Auto) 0.4, Eosinophils # (Auto) 0.2, Basophils # (Auto) 0.1, Nucleated Red Blood Cells % (auto) 0.0, Anion Gap 5L, Glomerular Filtration Rate 28.0L, Calcium Level 9.5, Phosphorus Level 3.8, Albumin 3.5 Microbiology Microbiology 11/28/20 Stool Occult Blood (CADENCE) - Final, Complete Current Medications Current Medications Current Medications Medications (Trade) Dose Ordered Sig/Aftab Route PRN Reason Start Time Stop Time Status Last Admin Dose Admin Acetaminophen (Tylenol Tab) 1,000 mg TID PO 11/18/20 16:00 12/02/20 07:56 Amlodipine Besylate (Norvasc) 5 mg DAILY PO 11/19/20 17:25 11/20/20 10:46 DC 11/20/20 08:25 Amlodipine Besylate (Norvasc) 5 mg DAILY PO 11/23/20 09:00 12/02/20 07:57 Amlodipine Besylate (Norvasc) 10 mg DAILY PO 11/21/20 09:00 11/22/20 13:39 DC 11/22/20 07:56 Bisacodyl (Dulcolax Suppository) 10 mg DAILYPRN PRN [place] CONSTIPATION 11/18/20 13:20 Carbidopa/Levodopa (Sinemet 25/100) 0.5 tab DAILY@0800,1300,1800 PO 11/27/20 13:00 11/27/20 13:19 DC Dextrose (Dextrose 50%) 25 ml ASDIRECTED PRN IV SEE LABEL COMMENTS 11/18/20 13:20 Docusate Sodium (Colace) 100 mg BID PO 11/18/20 21:00 11/25/20 11:27 DC 11/25/20 07:57 Docusate Sodium (Colace) 100 mg TID PO 11/25/20 16:00 12/02/20 07:56 Ferrous Gluconate (Fergon) 324 mg DAILY PO 11/27/20 09:00 12/02/20 07:56 Furosemide (LASIX injection) 40 mg Q8H IV 11/22/20 16:00 11/25/20 06:31 DC 11/24/20 23:37 Gabapentin (Neurontin) 300 mg TID PO 11/18/20 16:00 12/02/20 07:57 Glipizide (Glucotrol Xl) 5 mg DAILY@0730 PO 11/19/20 07:30 11/20/20 12:31 DC 11/20/20 08:24 Glipizide (Glucotrol Xl) 5 mg DAILY@0730 PO 11/21/20 07:30 11/26/20 13:33 DC 11/26/20 08:18 Glipizide (Glucotrol Xl) 5 mg DAILY@0730 PO 11/28/20 07:30 12/02/20 07:56 Glipizide (Glucotrol Xl) 10 mg DAILY@0730 PO 11/27/20 07:30 11/27/20 09:22 DC 11/27/20 07:40 Glipizide (Glucotrol) 7.5 mg BID@0730,1730 PO 11/27/20 07:30 11/26/20 14:05 DC Glucagon (Glucagon) 1 mg ASDIRECTED PRN SC SEE LABEL COMMENTS 11/18/20 13:20 Glucose (Glucose) 16 GM ASDIRECTED PRN PO SEE LABEL COMMENTS 11/18/20 13:20 Home Med (Med Rec Complete!) ASDIRECTED XX 11/18/20 14:05 11/18/20 14:28 DC Insulin Human Lispro (HumaLOG INSULIN) SEE PROTOCOL TABLE AC SC 11/18/20 17:30 12/02/20 07:55 Insulin Human Lispro (HumaLOG INSULIN) SEE PROTOCOL TABLE QHS SC 11/18/20 21:00 12/01/20 20:12 Metoprolol Tartrate (Lopressor) 25 mg BID PO 11/19/20 10:50 11/20/20 10:45 DC 11/20/20 08:24 Metoprolol Tartrate (Lopressor) 50 mg Q8H PO 11/20/20 14:00 12/02/20 05:59 Ondansetron HCl (Zofran Odt) 4 mg Q6HP PRN PO NAUSEA OR VOMITING 11/18/20 13:20 11/21/20 09:25 Oxycodone/ Acetaminophen (Percocet 5mg/ 325mg Tablet) 1 tab Q6HP PRN PO PAIN LEVEL 6-10 11/18/20 15:15 11/28/20 13:54 DC Pantoprazole Sodium (Protonix) 40 mg DAILY PO 11/19/20 09:00 12/02/20 07:56 Polyethylene Glycol (Miralax) 1 pkt DAILY PO 11/25/20 11:25 12/02/20 07:56 Pravastatin Sodium (Pravachol) 40 mg QAM PO 11/19/20 09:00 12/02/20 07:57 Ramipril (Altace) 5 mg DAILY PO 11/19/20 09:00 11/20/20 10:45 DC 11/20/20 08:23 Rivaroxaban (Xarelto) 10 mg DAILY@18 PO 11/19/20 18:00 12/01/20 17:15 Senna (Senokot) 1 tab QHS PO 11/18/20 21:00 12/01/20 20:12 Torsemide (Demadex) 20 mg BID@09,17 PO 11/25/20 09:00 11/26/20 11:12 DC 11/26/20 08:19 Torsemide (Demadex) 20 mg DAILY PO 11/27/20 09:00 12/02/20 07:55 IHSAN CHRISTOPHER MD Dec 02, 2020 09:54
[2020-12-02] MEDS ORDERED: FERR32TA PO (10:02)
[2020-12-02] MEDS ORDERED: GABA-282 PO (10:02)
[2020-12-02] MEDS ORDERED: PANT40TA29 PO (10:02)
[2020-12-02] MEDS ORDERED: PRAV40TA2 PO (10:02)
[2020-12-02] MEDS ORDERED: LOPR1TAB6 PO (10:02)
[2020-12-02] MEDS ORDERED: TORS20TA2 PO (10:02)
[2020-12-02] MEDS ORDERED: GLIP5TAB20 PO (10:02)
[2020-12-02] MEDS ORDERED: AMLO1TAB24 PO (10:02)
[2020-12-02] MEDS ORDERED: XARE10TA PO (10:02)
[2020-12-02 14:00] VITALS: BP 126/70
--- NOTE | 2020-12-02 15:49 | IPNPDOC ---
Text Note Date of Service The patient was seen on 12/02/20. NOTE Patient is doing well , no new events Physical exam General: Alert and oriented female patient was sitting in her bedside chair and walked in the room. Patient not appear to be in any acute distress. HEENT: Normocephalic, atraumatic, moist mucous membranes. Neck: No lymphadenopathy or thyromegaly Cardiac: Regular rate and rhythm, no murmurs, normal S1, normal S2 Pulm: Clear to auscultation bilaterally. No wheezes, rhonchi, rales Abd: Nondistended, nontender to palpation, normal bowel sounds Ext: 2+ pitting edema in the right lower extremity with 1+ pitting edema in the left lower extremity Labs: See below Imaging: No new imaging has been performed Assessment/plan: Patient is a 75-year-old female who presented for a proximal comminuted fracture of the right femur. Dr. Kellogg took the patient to the OR on 11/15/2020 for a right hip closed reduction and cephalomedullary nail fixation. Patient's hospitalization was complicated by MUNIRA and anemia both which had resolved and patient was admitted to the acute rehabilitation unit. Dr. Corbin of nephrology was consulted and has been following the patient and adjusting her diuretic dose. Patient's creatinine has stabilized around 1.8-1.9 1. Right hip fracture. Taken to the OR on 11/15/2020. Continue with rehab which is going well. Continue Xarelto 10 mg daily for DVT prophylaxis 2. Acute kidney injury on chronic renal disease stage III. Dr. Corbin of nephrology is following and we appreciate his help treating the patient. 3. Anemia chronic disease. Continue to monitor CBC. Stable 4. Diabetes mellitus. Sliding scale insulin and consistent carb diet 5. Hypertension. Continue ramipril and amlodipine 6. Hyperlipidemia continue pravastatin DVT Prophylaxis: Xarelto 10 mg daily Disposition: Per ARU discharge plan VS,Elin, I+O VS, Elin, I+O Laboratory Tests 12/02/20 06:09 Vital Signs Date Time Temp Pulse Resp B/P (MAP) Pulse Ox O2 Delivery O2 Flow Rate FiO2 12/02/20 14:00 98.3 69 18 126/70 (88) 99 Room Air I&O- Last 24 Hours up to 6 AM 12/02/20 06:00 Intake Total 870 ml Balance 870 ml ERIN RODRIGUEZ MD Dec 02, 2020 15:49
--- NOTE | 2020-12-02 17:00 | IPN ---
NEPHROLOGY PROGRESS NOTE DATE: 12/02/2020 SUBJECTIVE: Miss Gray is seen and examined this morning in the Rehabilitation Unit. She is discharge pending. She has no complaints. She is looking forward to going home. She denies any shortness of breath. She has an appointment in the Nephrology Office on December 17. Her renal function has plateaued with creatinine of 1.8 the past week. OBJECTIVE: PHYSICAL EXAMINATION: VITAL SIGNS: Temperature 98.3, pulse 69, respiratory rate 18, blood pressure 126/70, saturating 99% on room air. INTAKE AND OUTPUT: Intake yesterday was 820. Voids were recorded as six voids and five bowel movements. Weight in the bed scale today was 88.8 kg. GENERAL APPEARANCE: The patient is seen sitting in the chair, elderly female, awake, alert, bright, in no distress. HEENT: The extraocular muscles are intact. Tongue is moist. NECK: Supple. Jugular veins were not elevated. HEART: Regular. S1, S2. There is chronic edema in the right lower extremity and trace edema in the left lower extremity. LUNGS: Symmetric air movement. No crackles or rales. She is comfortable on room air. ABDOMEN: Soft and nontender. NEUROLOGICAL: She is awake, alert, oriented x3, conversational and cooperative with physical exam. She moves all four extremities on command. LABORATORY STUDIES: Sodium 143, potassium 4.4, bicarbonate 34, BUN 42, creatinine 1.8, magnesium 2.2. Hemoglobin 10.2, platelet count 291. CURRENT INPATIENT MEDICATIONS: The patient continues on Torsemide 20 mg p.o. daily. There have been no changes in her medications the past several days. PROBLEMS: 1. Chronic kidney disease stage 3b with mild acute kidney injury I reviewed the patient's renal panels from 2015 to present. Baseline creatinine is 1.4 to 1.7. On this admission her creatinine has now stabilized around 1.8 the patient's one week. Her volume status is well compensated with the current dose of diuretic, Torsemide 20 mg daily. She has a mild metabolic alkalosis on labs. Continue current diuretic regimen and she will follow up in the Nephrology Office within 2 weeks, and I did discuss moderate fluid restriction with her as well and a low salt diet. 2. Right hip fracture status post reduction and cephalomedullary nail fixation she has done well with rehab and I believe she is for discharge today. She continues on low dose Xarelto for DVT prophylaxis. 3. Anemia related to chronic kidney disease her iron studies were acceptable and hemoglobin is stable at 10.2. No need for any MAURICIO at this time. She is on an oral iron supplement. 4. Hypertension - blood pressures are well controlled. Systolic is 120's to 140's and she continues on Torsemide and Amlodipine along with Metoprolol. She was previously on Ramipril at home and this has now been discontinued. Please keep off of don or ARB. 5. Disposition - The patient is acceptable for discharge from nephrology point of view.
[2020-12-02] MEDS: RIVAROXABAN 10 MG TAB (XARELTO) PO SCH (17:16)
[2020-12-02 20:00] VITALS: BP 147/67
[2020-12-02] MEDS: SENNA 8.6 MG TAB (SENOKOT) PO SCH (21:32)
[2020-12-03] MEDS: METOPROLOL TART 50 MG TAB PO SCH (05:29)
[2020-12-03 06:00] VITALS: BP 158/74
[2020-12-03] MEDS: glipiZIDE XL 5 MG TABCR PO SCH (08:19)
[2020-12-03] MEDS: HumaLOG INSULIN (NovoLOG) PER UNIT SC SCH ×2 (08:19→12:17)
[2020-12-03 08:20] VITALS: BP 158/74
[2020-12-03] MEDS: FERROUS GLUCONATE 324 MG TAB PO SCH (08:20)
[2020-12-03] MEDS: PANTOPRAZOLE 40MG TAB (PROTONIX) PO SCH (08:20)
[2020-12-03] MEDS: ACETAMINOPHEN 500 MG TAB PO SCH (08:20)
[2020-12-03] MEDS: DOCUSATE SODIUM 100MG CAPSULE PO SCH (08:20)
[2020-12-03] MEDS: GABAPENTIN 300 MG CAP PO SCH (08:20)
[2020-12-03] MEDS: TORSEMIDE 20 MG TAB PO SCH (08:20)
[2020-12-03] MEDS: PRAVASTATIN 20 MG TAB PO SCH (08:20)
[2020-12-03] MEDS: amLODIPine 5 MG TAB PO SCH (08:20)
[2020-12-03] MEDS: MIRALAX *UNIT DOSE* 17GM PACKET PO SCH (08:21)
[2020-12-03] MEDS: REMEDY PHYTOPLEX Z-GUARD PASTE 113GM TUBE (FROM STOREROOM PRODUCT) TOP SCH (08:21)
== END 2020-12-03 13:40 | disposition home health service (06) | DRG 560 ==
LOC: M PM&R 13:35
PROVIDERS: ADMIT Physical Medicine & Rehabilitation; ATTEND Physical Medicine & Rehabilitation
DX: S72.141D Displaced intertrochanteric fracture of right femur, subsequent encounter for closed fracture with routine healing (principal); N17.9 Acute kidney failure, unspecified; Z68.41 Body mass index [BMI] 40.0-44.9, adult; E87.3 Alkalosis; W01.0XXD Fall on same level from slipping, tripping and stumbling without subsequent striking against object, subsequent encounter; E78.5 Hyperlipidemia, unspecified; E11.22 Type 2 diabetes mellitus with diabetic chronic kidney disease; Y92.018 Other place in single-family (private) house as the place of occurrence of the external cause; Y99.8 Other external cause status; E66.9 Obesity, unspecified; N18.32 Chronic kidney disease, stage 3b; L89.151 Pressure ulcer of sacral region, stage 1; R60.0 Localized edema; K59.00 Constipation, unspecified; D50.9 Iron deficiency anemia, unspecified; Y93.E2 Activity, laundry; D63.1 Anemia in chronic kidney disease; I12.9 Hypertensive chronic kidney disease with stage 1 through stage 4 chronic kidney disease, or unspecified chronic kidney disease; Z74.1 Need for assistance with personal care; Z74.09 Other reduced mobility; Z79.84 Long term (current) use of oral hypoglycemic drugs; Z79.899 Other long term (current) drug therapy

== ENCOUNTER 2020-12-10 15:57 | Emergency (ER) | payer MEDICARE, OTHER ==
[~2020-12-10] VITALS: Ht 152.4 cm; Wt 77.3 kg
[2020-12-10 19:27] VITALS: BP 131/61
== END 2020-12-10 19:25 | disposition home or self-care (01) ==
LOC: M ED 15:57
DX: R22.42 Localized swelling, mass and lump, left lower limb (principal); Z47.89 Encounter for other orthopedic aftercare; E11.9 Type 2 diabetes mellitus without complications; I10 Essential (primary) hypertension; E78.5 Hyperlipidemia, unspecified; Z79.899 Other long term (current) drug therapy; Z79.84 Long term (current) use of oral hypoglycemic drugs; Z79.01 Long term (current) use of anticoagulants

== ENCOUNTER → 2020-12-10 | Outpatient (CLI) | payer MEDICARE, OTHER ==
[~2020-12-10] MED LIST changes: +AMLO1TAB24 PO; +FERR32TA PO; +GABA-282 PO; +LOPR1TAB6 PO; +PANT40TA29 PO; +TORS20TA2 PO; +XARE10TA PO
--- NOTE | 2020-12-10 12:28 | REP ---
INDICATION: ENCOUNTER FOR OTHER SPECIFIED SURGICAL AFTERCARE. COMPARISON: 11/14/2020. TECHNIQUE: AP pelvis single view Right hip two views FINDINGS: There has been gamma nail fixation of the previous intertrochanteric fracture with the hardware and fracture in satisfactory positions and alignment. The lesser trochanter remains a pulsed as previously. Mineralization appears normal. The soft tissue calcification medial to the femoral shaft compatible with myositis ossific cans and vascular atheromatous calcification. IMPRESSION: Gamma nail fixation of the intertrochanteric fracture as described. <Electronically signed by Kartik Pham > 12/10/20 [id number]
== END ==
LOC: M SOG 11:12
PROVIDERS: ATTEND Orthopaedic Surgery
DX: Z47.89 Encounter for other orthopedic aftercare (principal)

== ENCOUNTER → 2020-12-17 | Outpatient (REF) | payer MEDICARE, OTHER | LOC: M LAB REF 13:41 | PROVIDERS: ATTEND Internal Medicine Nephrology | DX: I12.9 Hypertensive chronic kidney disease with stage 1 through stage 4 chronic kidney disease, or unspecified chronic kidney disease (principal); N18.2 Chronic kidney disease, stage 2 (mild) ==

== ENCOUNTER → 2021-01-28 | Outpatient (CLI) | payer MEDICARE, OTHER ==
--- NOTE | 2021-01-28 15:51 | REP ---
INDICATION: SURGICAL AFTERCARE. COMPARISON: December 10, 2020. TECHNIQUE: Three views, AP pelvis and AP and frogleg views right hip. FINDINGS: Bony pelvic ring is intact. The left proximal femur is intact. There is some tendon insertion site spurring on the greater trochanter on the left. Left-sided acetabular spurring is noted. On the right the patient is status post open reduction internal fixation for intertrochanteric fracture. The femoral neck pin on today's radiograph is seen to protrude from the cortical margin of the femoral head apparently into the right hip joint. Position is otherwise unchanged. There is some mineralized callus adjacent the medial aspect of the fracture. Vascular calcifications noted. IMPRESSION: The femoral neck pin is seen protruding from the articular margin of the femoral head on the right on today's radiographs. This is a new finding suggesting subsidence. Mineralized callus formation seen at the inter trochanteric fracture. <Electronically signed by Estrada Mena > 01/28/21 [id number]
== END ==
LOC: M SOG 14:22
PROVIDERS: ATTEND Student in an Organized Health Care Education/Training Program
DX: Z48.89 Encounter for other specified surgical aftercare (principal)

== ENCOUNTER 2024-05-06 00:15 | Emergency (ER) | payer MEDICARE, OTHER ==
[~2024-05-06] VITALS: Ht 134.6 cm; Wt 75.4 kg
[~2024-05-06 00:15] MED LIST changes: +GABA-1172 PO; -GABA-282 PO; +RAMI10CA64 PO; -RAMI1CAP24 PO; -RAMI1CAP26 PO; +RAMI5CAP60 PO
[2024-05-06 01:21] LABS: BASO % 0.2 % (0.0-1.0); EOS % 0.1 % (0.0-3.0); HEMATOCRIT 29.6 % (36.0-47.0); LYMPH # 0.2 10^3/uL (1.5-5.0); LYMPH % 1.3 % (24.0-44.0); MEAN CORPUSCULAR HEMOGLOBIN 30.9 pg (27.0-33.0); MEAN CORPUSCULAR HGB CONC 33.8 g/dl (32.0-36.5); MEAN CORPUSCULAR VOLUME 91.4 fl (80.0-96.0); MONO # 1.1 10^3/uL (0.0-0.8); NEUTROPHILS # 12.1 10^3/uL (1.5-8.5); NEUTROPHILS % 89.9 % (36.0-66.0); PLATELET COUNT, AUTOMATED 185 10^3/uL (150-450); RED BLOOD COUNT 3.24 10^6/uL (4.00-5.40); WHITE BLOOD COUNT 13.5 10^3/uL (4.0-10.0)
[2024-05-06 01:35] LABS: INR 1.11; PARTIAL THROMBOPLASTIN TIME 28.2 SECONDS (24.8-34.2); PROTHROMBIN TIME 14.6 SECONDS (12.5-14.5)
[2024-05-06 01:44] LABS: ALBUMIN 3.4 G/DL (3.2-5.2); BILIRUBIN,DIRECT 0.4 MG/DL (<0.4); BILIRUBIN,TOTAL 0.9 MG/DL (0.3-1.2); CALCIUM LEVEL 9.5 MG/DL (8.3-10.6); CREATININE FOR GFR 2.71 MG/DL (0.55-1.30); POTASSIUM SERUM 4.3 MMOL/L (3.5-5.1)
[2024-05-06 02:39] LABS: KETONE, URINE AUTO RFX NEGATIVE (NEGATIVE)
[2024-05-06 02:44] LABS: LEUKOCYTE ESTERASE UR AUTO RFX 3+ (NEGATIVE)
[2024-05-06] MEDS: ACETAMINOPHEN 325 MG TAB PO ONE (03:19)
[2024-05-06] MEDS ORDERED: CEFD1CAP9 PO (05:17)
[2024-05-06] MEDS: CEFDINIR 300 MG CAP (OMNICEF) PO ONE (05:36)
[2024-05-06 06:00] VITALS: BP 96/51; TEMP 97.3
[2024-05-06 06:15] VITALS: O2SAT 97
== END 2024-05-06 06:21 | disposition home or self-care (01) ==
LOC: M ED 00:15
DX: N39.0 Urinary tract infection, site not specified (principal); I44.4 Left anterior fascicular block; E11.9 Type 2 diabetes mellitus without complications; I10 Essential (primary) hypertension; E78.5 Hyperlipidemia, unspecified; Z79.1 Long term (current) use of non-steroidal anti-inflammatories (NSAID); Z79.2 Long term (current) use of antibiotics; Z79.84 Long term (current) use of oral hypoglycemic drugs; Z79.899 Other long term (current) drug therapy

== ENCOUNTER 2024-07-11 11:33 | Emergency (ER) | payer MEDICARE ==
[~2024-07-11] VITALS: Ht 152.4 cm; Wt 75.3 kg
[~2024-07-11 11:33] MED LIST changes: +CALC1CAP31 PO; +CEFD1CAP9 PO; +DULA3PEN SC; +LANTINJ4 SC; +ROSU20TA86 PO; +SERT50TA29 PO; +SPIR50TA4 PO; +TRAD5TAB PO
[2024-07-11 13:30] LABS: BASO % 0.4 % (0.0-1.0); EOS # 0.1 10^3/uL (0.0-0.5); EOS % 1.3 % (0.0-3.0); HEMATOCRIT 31.8 % (36.0-47.0); HEMOGLOBIN 10.2 g/dl (12.0-15.5); LYMPH # 0.8 10^3/uL (1.5-5.0); LYMPH % 9.9 % (24.0-44.0); MEAN CORPUSCULAR HEMOGLOBIN 30.1 pg (27.0-33.0); MEAN CORPUSCULAR HGB CONC 32.1 g/dl (32.0-36.5); MEAN CORPUSCULAR VOLUME 93.8 fl (80.0-96.0); MONO # 0.7 10^3/uL (0.0-0.8); MONO % 9.7 % (2.0-8.0); NEUTROPHILS % 78.3 % (36.0-66.0); PLATELET COUNT, AUTOMATED 192 10^3/uL (150-450); RED BLOOD COUNT 3.39 10^6/uL (4.00-5.40); WHITE BLOOD COUNT 7.6 10^3/uL (4.0-10.0)
[2024-07-11 13:38] LABS: KETONE, URINE AUTO RFX NEGATIVE (NEGATIVE); NITRITE, URINE AUTO RFX NEGATIVE (NEGATIVE); RBC, URINE AUTO RFX 3 /HPF (0-3); SQUAM EPITHELIAL CELL UR AURFX 1 /HPF (0-6)
[2024-07-11 13:48] LABS: LEUKOCYTE ESTERASE UR AUTO RFX 2+ (NEGATIVE); WBC, URINE AUTO RFX 97 /HPF (0-3)
[2024-07-11 13:54] LABS: ALBUMIN 3.7 G/DL (3.2-5.2); BILIRUBIN,DIRECT 0.1 MG/DL (<0.4); BILIRUBIN,TOTAL 0.4 MG/DL (0.3-1.2); CALCIUM LEVEL 9.4 MG/DL (8.3-10.6); CK-MB VALUE MASS 4.3 NG/ML (<3.6); CREATININE FOR GFR 2.68 MG/DL (0.55-1.30); GLOMERULAR FILTRATION RATE 18.2 (>32); MB/CK RELATIVE INDEX 0.5 (< OR =4); POTASSIUM SERUM 4.5 MMOL/L (3.5-5.1); TOTAL PROTEIN 7.2 G/DL (5.7-8.2)
[2024-07-11 13:56] LABS: THYROID STIMULATING HORMONE 2.415 uIU/ML (0.55-4.78)
[2024-07-11] MEDS: CEFDINIR 300 MG CAP (OMNICEF) PO ONE (14:20)
[2024-07-11] MEDS ORDERED: CEFD300C PO (15:02)
[2024-07-11 15:41] VITALS: BP 127/56; TEMP 96.8; O2SAT 99
== END 2024-07-11 15:48 | disposition home or self-care (01) ==
LOC: EDBD 11:33 → M ED 11:33
DX: N39.0 Urinary tract infection, site not specified (principal); R60.0 Localized edema; I12.9 Hypertensive chronic kidney disease with stage 1 through stage 4 chronic kidney disease, or unspecified chronic kidney disease; E11.9 Type 2 diabetes mellitus without complications; R94.31 Abnormal electrocardiogram [ECG] [EKG]; Z79.4 Long term (current) use of insulin; Z79.2 Long term (current) use of antibiotics; Z79.899 Other long term (current) drug therapy

== ENCOUNTER 2024-12-02 06:34 | Day surgery (SDC) | payer MEDICARE ==
[~2024-12-02] VITALS: Ht 154.9 cm; Wt 69.4 kg
[~2024-12-02 06:34] MED LIST changes: +CEFD300C PO; +GLIP-318 PO; -GLIP5TAB20 PO; -PRAV40TA2 PO; +PRAV40TA85 PO
[2024-12-02] MEDS ORDERED: LR 1,000 ML IV SCH (07:00)
[2024-12-02] MEDS ORDERED: MIDAZOLAM INJ 2 MG/2 ML VIAL As Ordered ONE (07:39)
[2024-12-02] MEDS: CYCLOPENTOLATE 1% OPHTH SOLN 2 ML BTL OD SCH (07:45)
[2024-12-02] MEDS: TETRACAINE 0.5% OPHTH SOLN 4ML OD SCH (07:45)
[2024-12-02] MEDS: FLURBIPROFEN 0.03% OPHTH SOLN 2.5 ML OD SCH (07:45)
[2024-12-02] MEDS: PHENYLEPHRINE 2.5% OPHTH SOL 2ML OD SCH (07:45)
[2024-12-02] MEDS: LIDOCAINE 1% SDV 5 ML VIAL As Ordered ONE (08:22)
[2024-12-02] MEDS: CEFUROXIME 1 MG/0.1 ML INTRACAMERAL INJ As Ordered ONE (08:22)
[2024-12-02 08:39] VITALS: BP 144/88; TEMP 97.5; O2SAT 97
== END 2024-12-02 08:56 | disposition home or self-care (01) ==
LOC: M SDC 06:34
PROVIDERS: ATTEND Ophthalmology
DX: E11.36 Type 2 diabetes mellitus with diabetic cataract (principal); H25.11 Age-related nuclear cataract, right eye; I10 Essential (primary) hypertension; E78.00 Pure hypercholesterolemia, unspecified; Z79.899 Other long term (current) drug therapy; Z79.4 Long term (current) use of insulin
CPT/HCPCS: 66984; J0697; J2250; J3010; V2632

== ENCOUNTER 2025-01-27 06:30 | Day surgery (SDC) | payer MEDICARE, OTHER, MEDICAID ==
[~2025-01-27] VITALS: Ht 152.4 cm; Wt 77.1 kg
[~2025-01-27 06:30] MED LIST changes: +CVS50CAP PO; +IRON65TA2 PO
[2025-01-27] MEDS ORDERED: MIDAZOLAM INJ 2 MG/2 ML VIAL As Ordered ONE (06:43)
[2025-01-27] MEDS: TETRACAINE 0.5% OPHTH SOLN 4ML OS SCH (06:57)
[2025-01-27] MEDS: FLURBIPROFEN 0.03% OPHTH SOLN 2.5 ML OS SCH (06:57)
[2025-01-27] MEDS: CYCLOPENTOLATE 1% OPHTH SOLN 2 ML BTL OS SCH (06:57)
[2025-01-27] MEDS: PHENYLEPHRINE 2.5% OPHTH SOL 2ML OS SCH (06:57)
[2025-01-27] MEDS ORDERED: LR 1,000 ML IV SCH (07:00)
[2025-01-27] MEDS: LIDOCAINE 1% SDV 5 ML VIAL As Ordered ONE (07:47)
[2025-01-27] MEDS: CEFUROXIME 1 MG/0.1 ML INTRACAMERAL INJ As Ordered ONE (07:47)
[2025-01-27 08:05] VITALS: BP 143/69; TEMP 97.2; O2SAT 99
== END 2025-01-27 08:17 | disposition home or self-care (01) ==
LOC: M SDC 06:30
PROVIDERS: ATTEND Ophthalmology
DX: H25.12 Age-related nuclear cataract, left eye (principal); I10 Essential (primary) hypertension; E78.5 Hyperlipidemia, unspecified; F41.9 Anxiety disorder, unspecified; F32.A Depression, unspecified; R60.9 Edema, unspecified; E11.9 Type 2 diabetes mellitus without complications; Z79.84 Long term (current) use of oral hypoglycemic drugs; Z79.4 Long term (current) use of insulin; Z79.899 Other long term (current) drug therapy
CPT/HCPCS: 66984; J0697; J2250; J3010; V2632

== ENCOUNTER → 2025-02-07 | Outpatient (CLI) | payer MEDICARE, OTHER, MEDICAID ==
[2025-02-07 15:02] LABS: BASO # 0.0 10^3/uL (0.0-0.2); BASO % 0.5 % (0.0-1.0); EOS # 0.1 10^3/uL (0.0-0.5); EOS % 1.1 % (0.0-3.0); LYMPH # 0.7 10^3/uL (1.5-5.0); LYMPH % 9.1 % (24.0-44.0); MONO # 0.8 10^3/uL (0.0-0.8); MONO % 10.1 % (2.0-8.0); NEUTROPHILS # 6.4 10^3/uL (1.5-8.5); NEUTROPHILS % 78.8 % (36.0-66.0); PLATELET COUNT, AUTOMATED 234 10^3/uL (150-450)
[2025-02-07 15:24] LABS: ALT/SGPT 27.0 U/L (7.0-40); AST/SGOT 27.0 U/L (<34); CALCIUM LEVEL 9.7 MG/DL (8.3-10.6); CARBON DIOXIDE LEVEL 31.0 MMOL/L (20-31); CHLORIDE LEVEL 96.0 MMOL/L (98-107); CHOLESTEROL LEVEL 163.0 MG/DL (<200); CHOLESTEROL RISK RATIO 3.11 (<5); CREATININE FOR GFR 2.41 MG/DL (0.55-1.30); GLOMERULAR FILTRATION RATE 19.7 (>32); LDL CHOLESTEROL 83.2 MG/DL (<100); NON-HDL-C 110.6 MG/DL; POTASSIUM SERUM 5.0 MMOL/L (3.5-5.1); SODIUM LEVEL 137.0 MMOL/L (136-145); TRIGLYCERIDES LEVEL 137.0 MG/DL (<150)
[2025-02-07 15:34] LABS: ESTIMATED AVERAGE GLUCOSE 194.0 MG/DL (60-110)
== END ==
LOC: M WUC 11:48
PROVIDERS: ATTEND Internal Medicine
DX: R06.00 Dyspnea, unspecified (principal); E78.00 Pure hypercholesterolemia, unspecified